=== PATIENT | male | born 1965 | race Caucasian/White ===

== ENCOUNTER 2024-11-26 11:56 | Inpatient (IN) | payer OTHER, SELFPAY ==
[2024-11-26] VITALS (11 sets, daily range): BP systolic 161–190; BP diastolic 99–130; PULSE 81; BMI 42.4; BMI 41.6
[2024-11-26 10:17] LABS: % Basophils 0.5 % (0-2); % Eosinophils 1.4 % (0-6); % Immature Granulocytes 0.3 % (0-0.5); % Monocytes 6.1 % (1.7-9.3); % Neutrophils 83.7 % (42.2-75.2); Absolute Basophils 0.1 10^3/uL (0-0.2); Absolute Eosinophils 0.2 10^3/uL (0-0.7); Absolute Lymphocytes 0.9 10^3/uL (1.2-3.4); Absolute Monocytes 0.7 10^3/uL (0.1-0.6); Absolute Neutrophils 9.3 10^3/uL (1.4-6.5); Hematocrit 46.6 % (39.0-52.0); Hemoglobin 16.1 g/dL (13.0-18.0); Mean Corp Hgb Conc. 34.5 g/dL (33.0-37.0); Mean Corpuscular Hgb 28.8 pg (27.0-31.0); Mean Corpuscular Volume 83.2 fL (80.0-94.0); Mean Platelet Volume 10.3 fL (7.4-10.4); Nucleated Red Blood Cells % 0 % (-); Platelet Count 212 10^3/uL (130-400); Red Cell Dist. Width 13.9 % (11.5-14.5); White Blood Cell Count 11.1 10^3/uL (4.8-10.8)
[2024-11-26 10:46] LABS: ALT (SGPT) 83 U/L (0-50); Albumin 4.1 g/dl (3.5-5.0); Alkaline Phosphatase 92 U/L (38-126); Blood Urea Nitrogen 26 mg/dl (9-20); Calcium 9.7 mg/dl (8.4-10.2); Carbon Dioxide 29 mmol/L (22-30); Chloride 104 mmol/L (98-107); Estimated Creatinine Clearance 73 ml/min; Lipase 54 U/L (23-300); NT-proBNP 2860 pg/ml; Potassium 3.9 mmol/L (3.5-5.1); Sodium 141 mmol/L (135-145); Total Bilirubin 1.7 mg/dl (0.2-1.3); Total Protein 6.7 g/dl (6.3-8.2); eGFR > 60.00
[2024-11-26 11:00] LABS: AST (SGOT) 44 U/L (17-59); Glucose 156 mg/dl (70-99)
--- NOTE | 2024-11-26 11:04 | ED.GENMED ---
History of Present Illness
General
Chief Complaint: Breathing Problem
Source: patient
Exam Limitations: none
Time Seen by Provider: 11/26/24 10:05
Nursing documentation reviewed up to this point in time: agreed with
History of Present Illness
History of Present Illness:
Patient presents to ED secondary to worsening shortness of breath, especially with exertion, over the past 5 days. However, patient states that his symptoms have been ongoing over the past 1 month, with approximately 50 pounds of weight gain, along
with abdominal distention and leg swelling. Denies coughing. Denies fever or chills. Denies chest pain. Denies nausea, vomiting, or diarrhea. Denies recent travel or surgery. Patient is an ex-smoker and has stopped drinking alcohol.
Past History
Past History
ED Past Medical History: HTN; Negative Hypercholesterolemia
ED Past Surgical History: Orthopedic (R knee surg)
Social History
Tobacco: Non-smoker
Alcohol: None
Drug: None
Personal:
Living: with family
Review of Systems
Review of Systems
Allergies reviewed?: Yes
Constitutional: Reports no symptoms; Denies fever
EENT: Reports no symptoms
Respiratory: Reports trouble breathing; Denies cough
Cardiac: Denies chest pain, diaphoresis or palpitations
ABD/GI: Reports other (Abdominal distention); Denies abdominal pain, vomiting or diarrhea
Musculoskeletal: Reports no symptoms
Skin: Reports no symptoms
Neurological: Reports no symptoms
Phy Exam
Physical Exam
Physical Exam:
Physical Exam
General: mild respiratory distress, not acutely ill. afebrile. overweight
Head: nc/at. eomi
Neck: supple. normal range of motion
Heart: s1/s2 regular rate and rhythm, no murmur.
Lungs: mild respiratory distress. diminished breath sounds bilaterally
Abdomen: normal bowel sounds. not tender. moderate distention
Neuro: alert and oriented x 3. no focal neurological deficits
Skin: no rash
Psychiatric: well kept. interactive and cooperative
Extremities: LE b/l pitting edema. no calf tenderness.
Scores
Heart Failure Risk
Heart Failure Risk Score: Yes
History of Stroke or TIA: No
History of intubation for respiratory distress: No
Heart rate on ED arrival >/= 110: No
SaO2 <90% on arrival on room air: Yes
HR >/=110 during 3min walk test (or too ill to perform test): No
ECG has acute ischemic changes: No
Urea >/=12mmol/L (BUN 33.6mg/dL): No
Serum CO2>/=35mmol/L: No
Troponin I or T elevated to GA Level (0.4mg/dL): No
NT-proBNP >/=5,000ng/L (5,000pg/ml): No
HF Risk Score: 1
Admission Status: MEDIUM RISK 5.1% Consider observation or discharge to home with homecare & f/u visit to PCP/[facility], or SNF for treatment
Course
Orders/Labs/Results
Orders:
Orders
11/26/24 09:29
Electrocardiogram (*1) Urgent
Reason for Study: Shortness of Breath
EKG- Treatment ONCE
11/26/24 10:07
CMP [Comprehensive Metabolic Panel] Urgent
Complete Blood Count/With Diff Urgent
Direct Bilirubin Urgent
GGTP Urgent
Glycohemoglobin (HgbA1c) Urgent
Lipase Urgent
Magnesium Urgent
Comment: ADD
Pro-BNP [NT-proBNP] Urgent
Troponin I Urgent
Comment: ADD ON
11/26/24 10:19
CR Chest - 2 Views Urgent
Comment:
Reason For Exam: sob
11/26/24 11:01
Urinalysis Reflex To Culture Urgent
Date Specimen was Collected: 11/26/24
Time Specimen was Collected: 11:00
Urine Microscopic Reflex Cult Urgent
11/26/24 11:04
Add On- LAB Urgent
Tests Added?: magnesium
Furosemide [Lasix] 40 mg IV NOW STA
11/26/24 11:05
Add On- LAB Urgent
Tests Added?: troponin
11/26/24 11:24
Add On- LAB Routine
Tests Added?: direct bilirubin, GGT
11/26/24 11:26
Add On- LAB Routine
Tests Added?: HgbA1c
11/26/24 11:48
Admit/Transfer Patient As Directed
Co-Sign Provider:
Level of Care: Inpatient admission
Assign to:: Telemetry
Physician / Group: Deya
Diagnosis: Acute CHF
Reason for Telemetry: Acute Heart Failure
Date to Stop Telemetry: 11/29/24
Time to Stop Telemetry: 11:00
Reason for Hospitalization: IV Lasix, cardio consult
Expected length of stay greater than two midnights?: Yes
ELOS- Estimated Length of Stay in days: 3
I certify the patient meets the requirements for IP care: Yes
PRN Pain Medication Management As Directed
May give lesser potent ordered pain med per pt: Yes
preference::
Protocol:: Medication orders for pain may be administered in a
manner that supports deferring to patient preference
when the pt is:
- Requesting an ordered lesser potent pain medication.
Least to most potent pain medications are defined
as: acetaminophen < NSAID < tramadol < opioids
(morphine, oxycodone, hydromorphone).
- Requesting a lesser dose of the same medication IF
ORDERED.
- Requesting a less intrusive route of administration
if both routes are prescribed by the provider (PO <
IV).
11/26/24 11:50
Code Status As Directed
Resuscitation Status: Full Code
11/26/24 12:08
CARDIOLOGY CONSULT Routine
Consulting Provider: Mathew Mane
Was physician already notified: Yes
11/29/24 11:00
DC Protocol for Telemetry ONCE
Abnormal Lab Results
11/26/24 11/26/24
10:07 11:01
WBC 11.1 H 10^3/uL
(4.8-10.8)
Absolute Neuts (auto) 9.3 H 10^3/uL
(1.4-6.5)
Absolute Lymphs (auto) 0.9 L 10^3/uL
(1.2-3.4)
Absolute Monos (auto) 0.7 H 10^3/uL
(0.1-0.6)
Neutrophils % 83.7 H %
(42.2-75.2)
Lymphocytes % 8.0 L %
(20.5-51.1)
BUN 26 H mg/dl
(9-20)
Glucose 156 H mg/dl
(70-99)
Total Bilirubin 1.7 H mg/dl
(0.2-1.3)
Direct Bilirubin 0.5 H mg/dl
(0.0-0.4)
ALT 83 H U/L
(0-50)
Troponin I 0.097 H* ng/ml
Urine Ketones 1+ A
(Negative)
Ur Occult Blood Reflex 1+ A
(Negative)
Urine RBC 3-6 A /HPF
(0-2)
Urine Bacteria (Reflex) Few A
(Negative)
Urine Glucose 1+ A
(Negative)
Urine Albumin (Reflex) 4+ A
(Neg - Trace)
11/26/24 10:07
11/26/24 10:07
Vital Signs
Initial and Last Documented VS:
Initial Vital Signs
Temp Pulse Resp BP Pulse Ox
98.0 F 78 18 187/126 93
11/26/24 09:24 11/26/24 09:24 11/26/24 09:24 11/26/24 09:24 11/26/24 09:24
Last Documented Vital Signs
Temp Pulse Resp BP Pulse Ox
98.0 F 78 18 174/124 94
11/26/24 09:24 11/26/24 12:00 11/26/24 12:00 11/26/24 12:00 11/26/24 12:00
MDM/Problems Addressed
MDM/Problems Addressed:
History and exam consistent with hypoxia and respiratory distress, secondary to fluid overload. Patient will be admitted for further evaluation treatment, including IV diuresis. Paracentesis to be considered, secondary to significant abdominal
distention, if symptoms do not improve with IV diuresis.
*EKG
Interpreted by ED Provider?: Yes
EKG Intrepretation Date: 11/26/24
Heart Rate: 86
Rate: normal
Rhythm: sinus
[place]: normal axis
Interval: normal interval
*Critical Care Note
Total Time (30-74mins, 75-104mins- exclusive of procedures): Not Applicable
ED Attending Note
-
Portions of this chart may have been created with voice recognition software.� Occasional wrong word or��sound alike� substitutions may have occurred due to the inherent limitations of voice recognition software.
Discharge Plan
Departure
Patient Disposition: Admit
Date of Disposition: 11/26/24
Time of Disposition: 11:11
Presentation/result/management discussed w/ accepting MD/DO: Hospitalist
Discharge Problem:
Hypoxia, Fluid overload
Interventions
Interventions:
*Risk Screen - Suicide Last Done: 11/26/24 09:24
*General Assessment Last Done: 11/26/24 09:24
*Neglect/Abuse Screening Last Done: 11/26/24 09:24
*ED- Fall Risk Assessment Last Done: 11/26/24 09:59
*ED COVID-19 Vaccine History Last Done: 11/26/24 09:59
ED- Cardiac Assessment Last Done: 11/26/24 10:04
ED- Pulmonary Assessment Last Done: 11/26/24 10:04
[2024-11-26] MEDS: LASIX 40 MG IV ×2 (11:15→17:24)
[2024-11-26 11:17] LABS: Urine Albumin 4+ (Neg - Trace); Urine Bilirubin Negative (Negative); Urine Character Clear (Clear); Urine Color Yellow; Urine Glucose 1+ (Negative); Urine Ketone 1+ (Negative); Urine Leukocyte Negative (Negative); Urine Nitrite Negative (Negative); Urine Occult Blood 1+ (Negative); Urine Urobilinogen Negative (Neg - 1+)
[2024-11-26 11:17] LABS: Magnesium 1.9 mg/dl (1.6-2.3)
[2024-11-26 11:43] LABS: Direct Bilirubin 0.5 mg/dl (0.0-0.4); GGTP 53 U/L (15-73)
[2024-11-26 11:45] LABS: Urine Bacteria Few (Negative)
[2024-11-26 11:53] LABS: Troponin I 0.097 ng/ml
--- NOTE | 2024-11-26 12:06 | HPS.HSE ---
Family Physician
-
Family Physician: Tanisha Elmore
Chief Complaint
-
Shortness of breath on exertion, weight gain
History of Present Illness
59-year-old male here complaining of increasing dyspnea on exertion over the past month, much worse over the past 5 days. Denies chest pain or pressure. Notes increasing abdominal distention and lower extremity swelling.
Has not particularly noted orthopnea. Denies history of heart failure or heart disease.
States he has gained 40 pounds in the past 8 weeks.
Medical History
Past Medical History
Past Medical History: Reports Other
Additional Past Medical History:
Essential hypertension
Prostate cancer history
SD
Hyperlipidemia
Past Surgical History: Reports Other
Additional Past Surgical History:
Radical prostatectomy 2019
Right total knee arthroplasty
Left lower extremity debridement
Social History
Tobacco: Former Smoker
Alcohol: Former
Drug: Former User
Family History
Family History: Not pertinent
Allergies / Home Medications
Allergies reflects when Allergies were last updated in [facility].
Home Medications with original date entered in [facility]
Allergy/Medication List:
Allergies
Allergy/AdvReac Type Severity Reaction Status Date / Time
ampicillin [Ampicillin] Allergy Unknown Verified 11/26/24 09:23
metformin Allergy Unknown Verified 11/26/24 09:24
Home Medications
amlodipine 10 mg tablet 10 mg PO DAILY 10/23/14
atorvastatin 10 mg tablet 40 mg PO DAILY 10/23/14
escitalopram oxalate 10 mg tablet 10 mg PO DAILY 11/26/24
esomeprazole magnesium 40 mg capsule,delayed release 40 mg PO DAILY 11/26/24
losartan 100 mg tablet 100 mg PO DAILY 11/26/24
metoprolol succinate 50 mg tablet,extended release 24 hr 50 mg PO DAILY 11/26/24
Review of Systems
-
History Source: Patient
A 12 point ROS was completed and negative except as noted: Yes
Physical Exam
Vital Signs
Vital Signs
Temp Pulse Resp BP Pulse Ox
98.0 F 78 18 174/124 94
11/26/24 09:24 11/26/24 12:00 11/26/24 12:00 11/26/24 12:00 11/26/24 12:00
Physical Exam
General: Well Developed, Well Nourished, No Apparent Distress and Comfortable
HEENT: NormoCephalic, Anicteric and Moist mucous membranes
Respiratory: Clear
Cardiac: S1/S2 and Regular Rhythm
GI: Soft, Non Tender and Distended
Genito-urinary: Deferred by me
Musculoskeletal: No Clubbing, No Cyanosis, Edema, Left Lower Extremity and Edema, Right Lower Extremity
Skin: Warm and Dry
Neuro: AO x 3
Hematologic/Lymphatic: No Lymphadenopathy
Psych: Calm
Laboratory Results
-
11/26/24 10:07
11/26/24 10:07
Laboratory Results
Total Bilirubin 1.7 mg/dl (0.2-1.3) H 11/26/24 10:07
AST 44 U/L (17-59) 11/26/24 10:07
ALT 83 U/L (0-50) H 11/26/24 10:07
Alkaline Phosphatase 92 U/L (38-126) 11/26/24 10:07
Troponin I Cancelled 11/26/24 11:04
Lipase 54 U/L (23-300) 11/26/24 10:07
Impression/Plan
-
Acute hypoxic respiratory insufficiency -due to acute pulmonary edema due to acute heart failure exacerbation. Oxygenation improved on 3 L nasal cannula.
Acute heart failure exacerbation - admit to telemetry. First episode of heart failure. Chest x-ray consistent with pulmonary edema. Continue IV Lasix. Check echocardiogram. Consult cardiology. Has never had stress test or catheterization in
the past. BNP 2860.
Essential hypertension with hypertensive emergency -presentation with acute pulmonary edema, acute heart failure exacerbation. Blood pressure should improve with diuresis. Resume home medications.
Troponin elevation -suspect acute nonischemic myocardial injury due to heart failure. Trend troponins.
SD -resume CPAP at bedtime. Patient states he has been compliant.
Hyperlipidemia -atorvastatin.
History of prostate cancer
Morbid obesity due to excess calories
Full code
--- NOTE | 2024-11-26 12:15 | EDRN ---
Dr Falk was notified of elevated BP readings and feels this will resolve as his fluid overload improves - no additional orders at this time
--- NOTE | 2024-11-26 13:30 | CM ---
Met with patient in room. He lives alone in 2 level home, no steps to enter and 13 to fullbath and bedroom. He states he is independent, works, goes to gym, drives. He is . He has 4 dgtrs. He does not use any DME. No history of SNF or VNA.
PCP Flex Elmore
Pharmacy: [facility]
Patient does not anticipate any needs at discharge.
PLAN: HOme no needs
--- NOTE | 2024-11-26 13:33 | CON.CAR ---
Addendum entered and electronically signed by Mathew Mane MD 11/26/24 17:59:
59 yo male with HTN, DM admitted with progressed SOB, edema. No chest pain. Exam with RRR, no murmurs, 1+ LE edema.
Echo shows EF 30-35%, LAD wall motion abnormality.
New cardiomyopathy, suspected ICM. With acute systolic HF, new. Plan for L/RHC in AM. Continue IV lasix.
Titrate/add GDMT. Case mgmt consulted for carmelo.
Original Note:
Consultation
Consultation Request
Date/Time Consultation Requested: 11/26/24 1208
Date/Time Consultation Performed: 11/26/24 1330
Requesting Provider: Dr. Falk
Performing Provider: Cayla GRAVES for Dr. Mane
Reason for Consultation: CHF
Medical History
-
Chief Complaint: SOB
History of Present Illness:
59 y/o male with hypertension, hx prostate CA (prostatectomy 2019), SD on CPAP, obesity, DM, dyslipidemia who is here for evaluation of SOB which has worsened over the past 4 days. He thinks he has gained 20 lbs in the past month and reports LE
edema and abdominal bloating. His SOB prevented him from sleeping last night. He denies any CP. CXR, BNP, exam suggestive of CHF and he is being diuresed. I also note that his BP is severely elevated in ER. His EKG shows evidence for LVH. He is on
O2 by MN and has received a dose of IV lasix. He is in no distress at the time of my assessment.
Past Medical History
Past Medical History: Cancer, HTN, Hypercholesterolemia and Other (as above)
Social History
Tobacco: Former Smoker
Alcohol: None
Drug: None
Family History
Family History: Reviewed & Not Pertinent
Allergies / Home Medications
Allergy/AdvReac Type Severity Reaction Status Date / Time
ampicillin [Ampicillin] Allergy Unknown Verified 11/26/24 09:23
metformin Allergy Unknown Verified 11/26/24 09:24
�Medication �Instructions �Recorded �Confirmed �Type
amlodipine 10 mg tablet 10 mg PO DAILY 10/23/14 11/26/24 History
atorvastatin 10 mg tablet 40 mg PO DAILY 10/23/14 11/26/24 History
escitalopram oxalate 10 mg tablet 10 mg PO DAILY 11/26/24 11/26/24 History
esomeprazole magnesium 40 mg 40 mg PO DAILY 11/26/24 11/26/24 History
capsule,delayed release
losartan 100 mg tablet 100 mg PO DAILY 11/26/24 11/26/24 History
metoprolol succinate 50 mg 50 mg PO DAILY 11/26/24 11/26/24 History
tablet,extended release 24 hr
Review of Systems
-
History Source: Patient
All other systems: Negative unless noted
Constitutional: Weight Gain
Respiratory: Trouble Breathing
Musculoskeletal: Edema
Physical Exam
Vital Signs
Temp Pulse Resp BP Pulse Ox
98.0 F 80 18 190/119 94
11/26/24 09:24 11/26/24 13:15 11/26/24 13:15 11/26/24 13:12 11/26/24 12:00
Lab Results
11/26/24 10:07
11/26/24 10:07
Troponin I Cancelled 11/26/24 11:04
Oxn-S-Kxiwlprfdkc Pept 2860 pg/ml 11/26/24 10:07
Physical Exam
General: Well Developed, Well Nourished and No Apparent Distress
HEENT: Normocephalic and Anicteric
Respiratory: Other (diminished to b/l bases, on O2 by NC)
Cardiac: Regular Rhythm
GI: Distended
Musculoskeletal: Edema (BLE edema, mild)
Skin: Warm and Dry
Neuro: AO x 3
Psych: Calm
Impression / Plan
-
Acute HF (type unknown):
-CXR and BNP suggestive CHF, also on exam with abdominal bloating, mild BLE edema. Patient reports weight gain as well. Lungs diminished to b/l bases on exam.
-check echo
-agree with IV lasix, which requires intensive monitoring
-CHF education
-sodium/fluid restriction
HTN:
-severely elevated in ER, improving
-continue amlodipine, losartan, metoprolol
-monitor with diuresis, but likely to need another agent
Abnormal troponin:
-suspect acute, non-ischemic myocardial injury in setting of acute HF and severe HTN
-trend to peak
-denies CP
-EKG abnormal, but no baseline for comparison
-check echo
DM2:
-not on meds
-management per primary
SD:
-continue CPAP
Obesity, severe:
-will benefir from weight loss moving forward
Data Reviewed
-
EKG: Tracing Personally Visualized and interpreted (SR with LVH, lateral T wave inversions- no previous)
Radiology: Report Reviewed by me (CXR: Cardiomegaly. Diffusely increased interstitial markings, highly suggestive of interstitial pulmonary edema pattern.)
Medical Tests (Nuc Med, Echo etc): Other (echo ordered)
Labs: Labs Reviewed by me
[2024-11-26 13:34] LABS: Glycohemoglobin (HgbA1c) 7.5 % (4.0-5.6)
[2024-11-26 15:31] LABS: Troponin I 0.106 ng/ml
[2024-11-26] MEDS: LOVENOX 40 MG SC (17:24)
[2024-11-26] MEDS: ASPIRIN 325 MG PO (17:55)
[2024-11-26] MEDS: APRESOLINE 25 MG PO ×2 (18:05→21:54)
[2024-11-26] MEDS: MELATONIN 5 MG PO (21:54)
[2024-11-26] MEDS: COREG 25 MG PO (21:54)
[2024-11-26] MEDS: TYLENOL 650 MG PO (21:54)
[2024-11-26 22:14] LABS: Troponin I 0.102 ng/ml
[2024-11-26] MEDS: APRESOLINE 5 MG IV (23:40)
[2024-11-27] VITALS (21 sets, daily range): BP systolic 128–173; BP diastolic 81–121; PULSE 67; BMI 41.3
[2024-11-27] MEDS: LOW STRENGTH ASPIRIN 81 MG PO (07:46)
[2024-11-27] MEDS: LIPITOR 40 MG PO (07:46)
[2024-11-27] MEDS: COZAAR 100 MG PO (07:48)
[2024-11-27] MEDS: NORVASC 10 MG PO (07:48)
[2024-11-27] MEDS: COREG 25 MG PO ×2 (07:49→20:23)
[2024-11-27] MEDS: PROTONIX 40 MG PO (07:49)
[2024-11-27] MEDS: LASIX 40 MG IV ×2 (07:49→17:34)
[2024-11-27] MEDS: LEXAPRO 10 MG PO (07:49)
[2024-11-27] MEDS: APRESOLINE 25 MG PO ×3 (07:49→22:42)
--- NOTE | 2024-11-27 08:16 | W.PN.HOSP.TC ---
Addendum entered and electronically signed by Yobany Falk DO 11/27/24 13:06:
Correction: Acute hypoxic respiratory failure.
Original Note:
Today's Communication/Plan
-
N.p.o.
Cardiac catheterization
Continue IV Lasix
Nutrition consult
monitor glucoses
Assessment / Plan
Assessment / Plan
Gen-AAOx3, NAD
HEENT-NC, AT, anicteric, clear oral mm
Neck-supple
CV-reg, no M, +S1/S2
Lungs-clear B/L
Abd-soft, NT, ND
Ext-no edema
Musculoskeletal-no cyanosis, clubbing
Skin-warm and dry
Neuro-grossly non-focal
Psych-calm, cooperative
Acute hypoxic respiratory insufficiency -due to acute pulmonary edema due to acute heart failure exacerbation. Oxygenation slightly worse this morning, needing 5 L. However, clinically he looks better, feels better. Wean down oxygen as able.
Acute heart failure reduced EF exacerbation - admit to telemetry. First episode of heart failure. Chest x-ray consistent with pulmonary edema. Continue IV Lasix. Plan for cardiac catheterization today as per cardiology. Discussed with patient.
Echocardiogram shows LVEF 30 to 35%, LAD territory wall motion abnormality, mild concentric LVH, normal RV size and function. Mild AR.
Essential hypertension with hypertensive emergency -presentation with acute pulmonary edema, acute heart failure exacerbation. Blood pressure now trending down.
Metoprolol changed to carvedilol.
DM2 with hyperglycemia -hemoglobin A1c 7.5%. New diagnosis of diabetes. Farxiga would be ideal medication given presentation with heart failure. Discussed with patient. Case management to barnard out. Nutrition consult for diabetic diet teaching.
Weight loss recommended.
Troponin elevation -suspect acute nonischemic myocardial injury due to heart failure. Troponins trended down.
SD -resume CPAP at bedtime. Patient states he has been compliant.
Hyperlipidemia -atorvastatin.
History of prostate cancer
Morbid obesity due to excess calories
Full code
Anticipated Discharge: > 48 hours
Subjective/Interval History
-
Date of Service: November 27, 2024
Patient seen and examined. Feeling better. No complaints.
Objective Data
-
Labs:
Laboratory Results
11/27/24
07:32
Sodium Pending
Potassium Pending
Chloride Pending
Carbon Dioxide Pending
BUN Pending
Creatinine Pending
Glucose Pending
Calcium Pending
Total Bilirubin Pending
AST Pending
ALT Pending
Alkaline Phosphatase Pending
Vital Signs:
Vital Signs
Temp Pulse Resp BP Pulse Ox
98.3 F 79 18 159/96 98
11/27/24 03:24 11/27/24 03:24 11/27/24 03:24 11/27/24 03:24 11/27/24 03:24
I&O
11/26/24 11/27/24 11/28/24
06:59 06:59 06:59
Intake Total 700 / 700
Output Total 2100 / 2099
Balance -1400 / -1400
Review of Systems
-
History Source: Patient
All other systems: Reviewed and negative
[2024-11-27 08:31] LABS: ALT (SGPT) 72 U/L (0-50); AST (SGOT) 35 U/L (17-59); Albumin 3.6 g/dl (3.5-5.0); Alkaline Phosphatase 72 U/L (38-126); Blood Urea Nitrogen 30 mg/dl (9-20); Calcium 9.4 mg/dl (8.4-10.2); Carbon Dioxide 32 mmol/L (22-30); Chloride 102 mmol/L (98-107); Estimated Creatinine Clearance 63 ml/min; Glucose 133 mg/dl (70-99); HDL Cholesterol 46 mg/dl; LDL Cholesterol, Calculated 76 mg/dl; Potassium 4.2 mmol/L (3.5-5.1); Sodium 140 mmol/L (135-145); Total Bilirubin 1.4 mg/dl (0.2-1.3); Total Cholesterol 144 mg/dl (50-199); Triglyceride 110 mg/dl (10-149); Very Low Density Lipoprotein 22 mg/dl (0-30); eGFR 52.97
[2024-11-27 11:51] LABS: Glucose - Point of Care 132 mg/dl (70-99)
[2024-11-27] MEDS: NOVOLOG FLEXPEN-LOW RESISTANCE SC ×2 (12:15→17:46)
--- NOTE | 2024-11-27 12:50 | PN.CDI ---
CDI
- -
CDI:
Physician Documentation Request
Admit Date: 11/26/24 11:56
Dear Doctor Deya,
Clinical Indicators:
Patient admitted with acute HFrEF; presented with worsening AARON.
4/ PN, 'Acute hypoxic respiratory insufficiency ...Oxygenation slightly worse this morning, needing 5 L. However, clinically he looks better, feels better.'
02 requirements:
11/27/24
07:00 11/27/24
07:15 11/27/24
11:07
Nasal Cannula flow liters per minute 5 4 5
Please clarify which of the following accurately represents the patient's respiratory status:
Acute hypoxic respiratory failure
Acute hypoxic respiratory insufficiency (documentation complete)
Other, please specify
Additional information for Respiratory Failure:
Recognized criteria for Respiratory Failure (Source: [facility] Hospitalist Jun 2013)
ABGs: (1 or more) Symptoms Please indicate type if known
1. p)2 <60 or RA SPO2 <91% on RA 1. Tachypnea, SOB, dyspnea Hypoxic
2. pCO2 50 and pH <7.35 2. Use of accessory muscles Hypercapnic
3. pO2 decrease of pCO2 increase by 3. Pallor or cyanosis Hypoxic and Hypercapnic
10 mmHg from baseline if known 4. Anxiety or restlessness Unable to determine
5. Unable to speak in full sentences
Supplemental O2 of > 40% (5LPM) Intubation is not required
Use of terms such as suspected, likely, concern for, or probable (associated with a specific diagnosis that is being evaluated, monitored, or treated as if it exists) are acceptable and can be coded in the inpatient setting, when documented at the
time of discharge.
Thank you,
Keesah Houston RN BSN
CDI Specialist
available via tiger text
Please use your independent medical judgment in providing your response.
--- NOTE | 2024-11-27 15:57 | CM ---
Pricing on Entresto, Farxiga and Jardiance. I called the patient's [facility] and they gave me the prescription plan Med [facility], ID# [id number], [phone]. [facility] only [facility] discount card.
CM to confirm no prescription plan with the patient
--- NOTE | 2024-11-27 16:45 | ITS.CL.PN ---
Can Filling Machine Operator - Procedure Note
Procedure
Procedure Note:
CARDIAC CATHETERIZATION REPORT
Date of Procedure: 11/27/2024
Referring: Dr. Mathew Mane MD
Indication: Cardiomyopathy, NSTEMI
PROCEDURE(S)
1. right heart catheterization
2. left heart catheterization
3. coronary angiography
ACCESS
1. 6F right radial artery (closure: radial band)
2. 5F right antecubital vein (closure: manual hemostasis)
CATHETERS
1. 5F Sagle-Michelle
2. 6F JR4
3. 6F JL4
MODERATE SEDATION: 30 minutes of moderate sedation was utilized. An independent medical dir was present to assist with and help manage the patient's level of consciousness and physiologic status.
HEMODYNAMIC DATA
LV 153/21 (EDP 30) mmHg
AO 153/103 (mean 124) mmHg
RA 20 mmHg
RV 48/15 (EDP 20) mmHg
PA 49/28 (mean 37) mmHg
PCWP 26 mmHg
SaO2 92.2%
SvO2 73.7%
Hb 15.3 g/dL
CO/CI 6.85/3.08 L/min/m2
SVR 1215 dsc*-5
PVR 1.6 Wood units
CORONARY ANGIOGRAPHY
Dominance: right
LM: Large, normal
LAD: Large vessel giving rise to a large branching D1 before being totally occluded in the mid vessel. The D1 has a focal 60% stenosis in the mid portion of the larger upper branch. The small lower branch of D1 is subtotally occluded with bridging
collaterals. The mid to distal LAD fills via robust right to left collaterals from the RV marginal.
LCx: Large vessel giving rise to a large OM1, small OM2, and small LPL branch. The OM1 has a focal 70% stenosis that is eccentric and best seen in cranial projections. The OM2 is subtotally occluded.
RCA: Large vessel giving rise to a moderate caliber marginal branch, large RPDA, and large RPL system with several small RPL branches. The RV marginal supplies brisk collateral flow to the apical LAD.
RADIATION: dose 859.77 mGy; DAP 69.5533 Gy*cm2; fluoroscopy time 6.2 min
CONCLUSIONS
1. Triple-vessel coronary artery disease as described in a right dominant system
2. Severely elevated biventricular filling pressures, moderate postcapillary pulmonary hypertension, and normal cardiac output
3. No aortic stenosis on hemodynamic pullback
RECOMMENDATIONS
1. Evaluation for coronary artery bypass grafting with VALLEJO to LAD and additional grafts to the RPDA, diagonal, and large obtuse marginal.
2. Management of decompensated heart failure with reduced ejection fraction secondary to ischemic cardiomyopathy with diuresis and introduction of GDMT as tolerated.
Copy to: Tanisha Elmore DO (PCP)
Signed: Zion Damon MD, PhD
--- NOTE | 2024-11-27 16:58 | CONSULT.CT ---
Consultation
-
Date/Time Consultation Requested: 11/27/24 1645
Date/Time Consultation Performed: 11/27/24 1700
Requesting Provider: Diana GRAVES
Performing Provider: Ana GRAVES for Lissett BARKER
Reason for Consultation: CAD/ CABG eval
Patient History
Physicians
Family Physician: Tanisha Elmore
Outpatient Pig Breeder: None
Inpatient Pig Breeder: Dr. Mane
History of Present Illness
59-year-old male with past medical history of hypertension, prostate cancer, obstructive sleep apnea, and hyperlipidemia presented to [facility] on 11/26 with complaints of increasing AARON over the past month which worsened in the past 5 days.
Patient also noted to have lower extremity edema and a weight gain of 40 pounds in the past 8 weeks. While in the ER patient was found to be hypertensive and was started on oxygen via nasal cannula and was diuresed with Lasix. Since admission
patient has been getting diuresed with 40 mg of IV Lasix twice daily. While in the hospital patient received a echocardiogram which showed a LV ejection fraction of 30-35% and mild aortic regurgitation. Today he was taken to the cardiac Senior Project Leader/Team Lead
and multivessel disease was found therefore CT surgery was consulted for surgical evaluation.
Past Medical History
Past Medical History: HTN, Hypercholesterolemia, NIDDM, SD and SOB
Prostate CA
Past Surgical History
Past Surgical History: Other
Radical prostatectomy 2018
Right total knee arthroplasty
Left lower extremity debridement
Dental History
last dental visit 1 year ago
Family History
Family Medical History: CAD (maternal grandfather CABG)
Social History
Alcohol: Former (Quit in 2016)
Drug: None
Tobacco: Former Smoker (w/ occassional cigar)
Personal:
Living: Alone
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
Allergies
Allergy/AdvReac Type Severity Reaction Status Date / Time
ampicillin [Ampicillin] Allergy Unknown Verified 11/26/24 09:23
metformin Allergy Unknown Verified 11/26/24 09:24
Home Medications
�Medication �Instructions �Recorded �Confirmed �Type
amlodipine 10 mg tablet 10 mg PO DAILY Blood Pressure 10/23/14 11/26/24 History
atorvastatin 10 mg tablet 40 mg PO DAILY High Cholesterol 10/23/14 11/26/24 History
escitalopram oxalate 10 mg tablet 10 mg PO DAILY Depression 11/26/24 11/26/24 History
esomeprazole magnesium 40 mg 40 mg PO DAILY Gastrointestinal 11/26/24 11/26/24 History
capsule,delayed release Issue
losartan 100 mg tablet 100 mg PO DAILY Blood Pressure 11/26/24 11/26/24 History
metoprolol succinate 50 mg 50 mg PO DAILY Blood Pressure 11/26/24 11/26/24 History
tablet,extended release 24 hr
Review of Systems
-
History Source: Patient
General: Reports Weight Gain and Fatigue
HEENT: Reports No Symptoms
Respiratory: Reports SOB and AARON
Cardiac: Reports Edema
Abdomen/GI: Reports Other (edema)
: Reports No Symptoms
Musculoskeletal: Reports Edema
Skin: Reports No Symptoms
Neurological: Reports Dizzy
Vascular: Reports No Symptoms
Physical Exam
Vital Signs
Temp 98.2 F 11/27/24 11:07
Temp route: Oral 11/27/24 11:07
Pulse 72 11/27/24 11:07
Rhythm: Normal sinus rhythm 11/27/24 07:15
Resp Rate 19 11/27/24 11:07
Blood pressure 128/81 11/27/24 11:07
Blood pressure extremity used: Left upper arm 11/27/24 11:07
Position: Sitting 11/27/24 11:07
MAP (cuff-Shaun Monitor) 124 11/26/24 13:56
SaO2 94 11/27/24 11:07
Nasal Cannula flow liters per minute 5 11/27/24 11:07
Oxygen Mode of Delivery Room air 11/26/24 10:04
Can the patient verbally communicate their pain? Yes 11/27/24 07:15
Pain scale rating: Asleep 11/26/24 22:54
Actual Weight 115.893 kg 11/27/24 05:43
Body Mass Index (BMI) 41.3 11/27/24 05:43
Labs
11/26/24 10:07
11/27/24 07:32
Hemoglobin A1c 7.5 % (4.0-5.6) H 11/26/24 10:07
Troponin I 0.102 ng/ml H* 11/26/24 21:12
Xnb-K-Rvcrweennxs Pept 2860 pg/ml 11/26/24 10:07
Urinalysis
Urine Color Yellow 11/26/24 11:01
Urine Clarity Clear (Clear) 11/26/24 11:01
Urine pH 6.0 (5.0-9.0) 11/26/24 11:01
Ur Specific [place] 1.020 (<1.030) 11/26/24 11:01
Urine Ketones 1+ (Negative) A 11/26/24 11:01
Ur Occult Blood Reflex 1+ (Negative) A 11/26/24 11:01
Urine Bilirubin Negative (Negative) 11/26/24 11:01
Leukocyte Esterase Rfl Negative (Negative) 11/26/24 11:01
Urine RBC 3-6 /HPF (0-2) A 11/26/24 11:01
Urine WBC (Reflex) 3-5 /HPF (0-5) 11/26/24 11:01
Ur Squamous Epith Cells 3-5 /LPF (Few) 11/26/24 11:01
Urine Bacteria (Reflex) Few (Negative) A 11/26/24 11:01
Urine Glucose 1+ (Negative) A 11/26/24 11:01
Urine Albumin (Reflex) 4+ (Neg - Trace) A 11/26/24 11:01
Exam
General: Well Developed, Well Nourished and Comfortable
HEENT: Normocephalic
Respiratory: Clear
Cardiac: S1/S2
GI: Distended and Other (obese)
Rectal: Deferred by Provider
Skin: Warm and Dry
Neuro: AO x 3
Extremities: Upper Level Edema and Lower Level Edema
Lymph: No Lymphadenopathy
Psych: Calm
Assessment / Plan
-
59-year-old male with past medical history listed above presented to the emergency room with complaints of shortness of breath and a 40 pound weight gain. He was found to have a newly reduced EF and multivessel disease. CT surgery was consulted
for CABG evaluation.
#CAD
-Patient's case will be discussed with attending physician. Further details regarding surgical timing intervention will be determined after attending physicians full evaluation
-Routine preoperative cardiothoracic surgery orders will be initiated.
-STS risk stratification score will be calculated after preoperative testing is complete
-Continue heparin gtt per cardiology
-Continue diuresis as tolerated; patient may need augmentation with inotrope support
[2024-11-27 17:47] LABS: Glucose - Point of Care 95 mg/dl (70-99)
[2024-11-27] MEDS: LOVENOX 40 MG SC (17:47)
--- NOTE | 2024-11-27 18:16 | PTCARENOTE ---
Received patient from the labor economist at 1710 after R & LHC. Radial band in place right wrist with a strong radial pulse and no signs of bleeding or hematoma. SR on the monitor, patient denies any chest pain or sob. On 2l nc with pulse ox of 96%.
Belongings from the 4th floor brought down to his room. Call lewis in reach.
[2024-11-27 22:11] LABS: Glucose - Point of Care 146 mg/dl (70-99)
[2024-11-28] VITALS (10 sets, daily range): BP systolic 123–175; BP diastolic 73–120; BMI 40.9
[2024-11-28 05:20] LABS: Hematocrit 44.3 % (39.0-52.0); Hemoglobin 14.9 g/dL (13.0-18.0); Mean Corp Hgb Conc. 33.6 g/dL (33.0-37.0); Mean Corpuscular Hgb 28.7 pg (27.0-31.0); Mean Corpuscular Volume 85.4 fL (80.0-94.0); Mean Platelet Volume 10.4 fL (7.4-10.4); Platelet Count 239 10^3/uL (130-400); Red Blood Cell Count 5.19 10^6/uL (4.70-6.10); White Blood Cell Count 6.4 10^3/uL (4.8-10.8)
[2024-11-28 05:42] LABS: ALT (SGPT) 64 U/L (0-50); AST (SGOT) 30 U/L (17-59); Albumin 4.2 g/dl (3.5-5.0); Alkaline Phosphatase 81 U/L (38-126); Blood Urea Nitrogen 33 mg/dl (9-20); Calcium 9.6 mg/dl (8.4-10.2); Carbon Dioxide 29 mmol/L (22-30); Chloride 99 mmol/L (98-107); Direct Bilirubin 0.4 mg/dl (0.0-0.4); Estimated Creatinine Clearance 55 ml/min; Glucose 144 mg/dl (70-99); Potassium 3.8 mmol/L (3.5-5.1); Sodium 138 mmol/L (135-145); Total Bilirubin 1.1 mg/dl (0.2-1.3); Total Protein 6.6 g/dl (6.3-8.2); eGFR 45.58
[2024-11-28 05:45] LABS: INR 0.99; PT 13.3 Sec (11.4-14.6)
[2024-11-28 07:10] LABS: Glucose - Point of Care 142 mg/dl (70-99)
--- NOTE | 2024-11-28 08:35 | W.PN.HOSP.TC ---
Today's Communication/Plan
-
Hold Lasix
Bladder scan
Trend creatinine
CT surgery consult
Assessment / Plan
Assessment / Plan
Gen-AAOx3, NAD
HEENT-NC, AT, anicteric, clear oral mm
Neck-supple
CV-reg, no M, +S1/S2
Lungs-clear B/L
Abd-soft, NT, ND
Ext-no edema
Musculoskeletal-no cyanosis, clubbing
Skin-warm and dry
Neuro-grossly non-focal
Psych-calm, cooperative
Acute hypoxic respiratory failure -due to acute pulmonary edema due to acute heart failure exacerbation. Oxygenation improved, 2 L, wean down as able.
Acute heart failure reduced EF exacerbation - First episode of heart failure. Chest x-ray consistent with pulmonary edema.
Echocardiogram shows LVEF 30 to 35%, LAD territory wall motion abnormality, mild concentric LVH, normal RV size and function. Mild AR.
Three-vessel disease on cardiac cath with volume overload, PCWP 26 mmHg, cardiac index 3.0.
CT surgery consulted for consideration of CABG.
KERRIE -creatinine now 1.7. Hold Lasix. Hold ARB. Etiology likely multifactorial including blood pressure fluctuations, diuretic effect, IV contrast. Bladder scan, discussed with nursing. Labs in the morning. Discussed with cardiology.
Essential hypertension with hypertensive emergency -presentation with acute pulmonary edema, acute heart failure exacerbation. Blood pressure now trending down.
Metoprolol changed to carvedilol.
DM2 with hyperglycemia -hemoglobin A1c 7.5%. New diagnosis of diabetes. Farxiga would be ideal medication given presentation with heart failure. Discussed with patient. Case management to barnard out. Nutrition consult for diabetic diet teaching.
Weight loss recommended.
Troponin elevation -suspect acute nonischemic myocardial injury due to heart failure. Troponins trended down.
SD -continue CPAP at bedtime. Patient states he has been compliant.
Hyperlipidemia -atorvastatin.
History of prostate cancer
Morbid obesity due to excess calories
Full code
Anticipated Discharge: > 48 hours
Subjective/Interval History
-
Date of Service: November 28, 2024
Patient seen and examined. No complaints.
Objective Data
-
Labs:
Laboratory Results
11/28/24
04:52
WBC 6.4
Hgb 14.9
Hct 44.3
Plt Count 239
PT 13.3
INR 0.99
APTT 35.0
Sodium 138
Potassium 3.8
Chloride 99
Carbon Dioxide 29
BUN 33 H
Creatinine 1.7 H
Glucose 144 H
Calcium 9.6
Total Bilirubin 1.1
AST 30
ALT 64 H
Alkaline Phosphatase 81
Vital Signs:
Vital Signs
Temp Pulse Resp BP Pulse Ox
98.0 F 64 18 134/88 95
11/28/24 07:04 11/28/24 04:00 11/28/24 07:04 11/27/24 22:42 11/28/24 07:04
I&O
11/27/24 11/28/24 11/29/24
06:59 06:59 06:59
Intake Total 700 / 700 800 / 800
Output Total 2099 / 2099 2625 / 2625
Balance -1400 / -1400 -1825 / -1825
Review of Systems
-
History Source: Patient
All other systems: Reviewed and negative
--- NOTE | 2024-11-28 09:12 | W.PN.CD ---
Today's Communication / Plan
-
- Plan for coronary bypass grafting
Impression / Plan
-
CAD
- ACS with NSTEMI
- s/p LHC 11/27/24: Triple-vessel coronary artery disease as described in a right dominant system
- Severely elevated biventricular filling pressures, moderate postcapillary pulmonary hypertension, and normal cardiac output
- CT surgery is consulted - Plan for CABG
- No aortic stenosis on hemodynamic pullback
Acute HF (type unknown):
-in setting of NSTEMI
-Severely elevated biventricular filling pressures, moderate postcapillary pulmonary hypertension, and normal cardiac output
- CT surgery is consulted - Plan for CABG
-ECHO 11/26/24: LVEF 30% significant LAD territory wall motion abnormality.
-agree with IV lasix, which requires intensive monitoring
-CHF education
-sodium/fluid restriction
HTN:
-severely elevated in ER, improving
-continue amlodipine, carvedilol, hydralazine
- Valsartan and metoprolol discontinued on 11/27/2024 and replaced by Coreg and hydralazine
- Blood pressure is acceptable now with plan for upcoming cardiac surgery.
DM2:
-not on meds
-management per primary
SD:
-continue CPAP
Obesity, severe:
-will benefir from weight loss moving forward
Physical Exam
Vital Signs/Labs
Vital Signs
Temp Pulse Resp BP Pulse Ox
98.0 F 64 18 134/88 95
11/28/24 07:04 11/28/24 04:00 11/28/24 07:04 11/27/24 22:42 11/28/24 07:04
11/27/24 11/28/24 11/29/24
06:59 06:59 06:59
Actual Weight 115.893 kg 115 kg
11/28/24 04:52
11/28/24 04:52
PT 13.3 Sec (11.4-14.6) 11/28/24 04:52
INR 0.99 11/28/24 04:52
APTT 35.0 Sec (23.4-35.0) 11/28/24 04:52
Magnesium 1.9 mg/dl (1.6-2.3) 11/26/24 10:07
Triglycerides 110 mg/dl (10-149) 11/27/24 07:32
LDL Cholesterol, Calc 76 mg/dl 11/27/24 07:32
VLDL Cholesterol, Calc 22 mg/dl (0-30) 11/27/24 07:32
HDL Cholesterol 46 mg/dl 11/27/24 07:32
11/26/24
10:07
Zdx-R-Oxkazajdpwy Pept 2860
LAB Results
11/26/24 11/26/24 11/26/24
10:07 11:04 14:51
Troponin I 0.097 H* Cancelled 0.106 H*
11/26/24
21:12
Troponin I 0.102 H*
Physical Exam
Constitutional: No acute distress and Comfortable
EENT: Anicteric and Moist mucous membranes
Cardiovascular: Rhythm & rate is regular, Pedal edema is absent and JVD pressure is normal
Respiratory: Respiratory effort normal, Lungs clear to auscul., Wheeze Absent and Crackles Absent
GI: Soft, Distention absent and Normal bowel sounds
Neuro/Psych: Alert, Oriented and AO x 3
Data Reviewed
-
Date of Service: November 28, 2024
Medical Decision Making: Reviewed Test Results, Test Interpretation and Review of Case with other Provider
EKG: Tracing Personally Visualized and interpreted
Echo: Report Reviewed by me
Labs: Labs Reviewed by me
Old Records: Reviewed
[2024-11-28] MEDS: NOVOLOG FLEXPEN-LOW RESISTANCE SC ×3 (09:13→17:44)
[2024-11-28] MEDS: APRESOLINE 25 MG PO ×3 (09:15→20:59)
[2024-11-28] MEDS: NORVASC 10 MG PO (09:15)
[2024-11-28] MEDS: LASIX IV (09:16)
[2024-11-28] MEDS: PROTONIX 40 MG PO (09:16)
[2024-11-28] MEDS: LIPITOR 40 MG PO (09:16)
[2024-11-28] MEDS: LEXAPRO 10 MG PO (09:16)
[2024-11-28] MEDS: COREG 25 MG PO ×2 (09:16→20:57)
[2024-11-28] MEDS: LOW STRENGTH ASPIRIN 81 MG PO (09:17)
[2024-11-28] MEDS: MIRALAX 17 GRAMS PO (09:17)
--- NOTE | 2024-11-28 09:24 | W.PN.UPDATE ---
Update Note
Progress Note Update
Brief CTS Note
Discussed the patient with Dr. Galeana.
Rising creatinine with history of heart failure.
Start low-dose dobutamine at 2.5 to assist with end organ perfusion. Do not titrate.
Ongoing diuresis per primary team.
Surgical planning ongoing. Date TBD.
[2024-11-28] MEDS: DOBUTREX 500 MG 250 IV (10:12)
[2024-11-28 12:24] LABS: Glucose - Point of Care 144 mg/dl (70-99)
[2024-11-28 17:38] LABS: Glucose - Point of Care 159 mg/dl (70-99)
[2024-11-28] MEDS: LOVENOX 40 MG SC (18:30)
--- NOTE | 2024-11-28 21:21 | PTCARENOTE ---
Received pt @ change of shift. AAOx3. BP 154/98, other VSS. Using 2L NC off and on for comfort-- pt verbalized some anxiety and the O2 helps him relax. Dobutamine gtt running @ 2.5 mcg/kg/min (8.6 mL/hr) through left hand. Pt denies chest pain.
Right radial and brachial sites intact and ORAL AND MAXILLOFACIAL PATHOLOGIST. No ecchymosis or firmness. Discussed plan of care for evening. Pt verbalized understanding. Call lewis within reach.
[2024-11-28 22:03] LABS: Glucose - Point of Care 123 mg/dl (70-99)
[2024-11-29] VITALS (10 sets, daily range): BP systolic 152–171; BP diastolic 97–113; BMI 41.1
[2024-11-29 05:20] LABS: Blood Urea Nitrogen 32 mg/dl (9-20); Calcium 9.7 mg/dl (8.4-10.2); Carbon Dioxide 32 mmol/L (22-30); Chloride 100 mmol/L (98-107); Estimated Creatinine Clearance 52 ml/min; Glucose 129 mg/dl (70-99); Potassium 3.8 mmol/L (3.5-5.1); Sodium 139 mmol/L (135-145); eGFR 42.56
--- NOTE | 2024-11-29 05:41 | PTCARENOTE ---
Pt had a restful night. Opted for 2L NC instead of CPAP. Discussed with respiratory-- on board. Pt denied any chest pain or SOB overnight.
[2024-11-29 07:53] LABS: Glucose - Point of Care 141 mg/dl (70-99)
[2024-11-29] MEDS: NOVOLOG FLEXPEN-LOW RESISTANCE SC ×3 (07:54→18:30)
[2024-11-29] MEDS: COREG 25 MG PO ×2 (08:45→20:36)
[2024-11-29] MEDS: LIPITOR 40 MG PO (08:45)
[2024-11-29] MEDS: LEXAPRO 10 MG PO (08:45)
[2024-11-29] MEDS: APRESOLINE 25 MG PO ×3 (08:45→21:35)
[2024-11-29] MEDS: NORVASC 10 MG PO (08:45)
[2024-11-29] MEDS: LOW STRENGTH ASPIRIN 81 MG PO (08:45)
[2024-11-29] MEDS: PROTONIX 40 MG PO (08:46)
--- NOTE | 2024-11-29 08:53 | W.PN.HOSP.TC ---
Addendum entered and electronically signed by Yobany Falk DO 11/29/24 14:05:
Renal ultrasound reviewed. No hydronephrosis or nephrolithiasis. Mild chronic bilateral kidney disease. 2.1 cm complex cyst in the lower pole of the right kidney. This will need further imaging as an outpatient to rule out cystic renal cell
carcinoma.
Original Note:
Today's Communication/Plan
-
Renal ultrasound
BMP in the morning
Assessment / Plan
Assessment / Plan
Gen-AAOx3, NAD
HEENT-NC, AT, anicteric, clear oral mm
Neck-supple
CV-reg, no M, +S1/S2
Lungs-clear B/L
Abd-soft, NT, ND
Ext-no edema
Musculoskeletal-no cyanosis, clubbing
Skin-warm and dry
Neuro-grossly non-focal
Psych-calm, cooperative
Acute hypoxic respiratory failure -due to acute pulmonary edema due to acute heart failure exacerbation. Oxygenation improved, 1 L, wean down as able.
Acute heart failure reduced EF exacerbation - First episode of heart failure. Chest x-ray consistent with pulmonary edema.
Echocardiogram shows LVEF 30 to 35%, LAD territory wall motion abnormality, mild concentric LVH, normal RV size and function. Mild AR.
Three-vessel disease on cardiac cath November 27 with volume overload, PCWP 26 mmHg, cardiac index 3.0.
CT surgery consulted for CABG.
KERRIE -creatinine now 1.8. Hold ARB, Lasix. Etiology likely multifactorial including blood pressure fluctuations, diuretic effect, IV contrast. No retention on bladder scan. Renal ultrasound to be done this morning.
BMP in the morning. Consult nephrology if renal function worsens.
Essential hypertension with hypertensive emergency -presentation with acute pulmonary edema, acute heart failure exacerbation. Blood pressure labile, 123/73 last night, 164/108 this morning. Patient states blood pressure is always elevated in the
hospital.
Metoprolol changed to carvedilol.
DM2 with hyperglycemia -hemoglobin A1c 7.5%. New diagnosis of diabetes. Farxiga would be ideal medication given presentation with heart failure. Discussed with patient. Case management to barnard out. Nutrition consult for diabetic diet teaching.
Weight loss recommended.
Troponin elevation -suspect acute nonischemic myocardial injury due to heart failure. Troponins trended down.
SD -continue CPAP at bedtime. Patient states he has been compliant.
Hyperlipidemia -atorvastatin.
History of prostate cancer
Morbid obesity due to excess calories -discussed lifestyle changes and weight loss.
Full code
Anticipated Discharge: > 48 hours
Subjective/Interval History
-
Date of Service: November 29, 2024
Patient seen and examined. Overall feeling better, no complaints.
Objective Data
-
Labs:
Laboratory Results
11/29/24
02:45
Sodium 139
Potassium 3.8
Chloride 100
Carbon Dioxide 32 H
BUN 32 H
Creatinine 1.8 H
Glucose 129 H
Calcium 9.7
Vital Signs:
Vital Signs
Temp Pulse Resp BP Pulse Ox
98.7 F 70 18 164/108 95
11/29/24 07:56 11/29/24 08:00 11/29/24 02:37 11/29/24 07:58 11/29/24 07:54
I&O
11/28/24 11/29/24 11/30/24
06:59 06:59 06:59
Intake Total 800 / 800 550 / 550
Output Total 2625 / 2625 925 / 925
Balance -1825 / -1825 -375 / -375
Review of Systems
-
History Source: Patient
All other systems: Reviewed and negative
[2024-11-29] MEDS: MIRALAX 17 GRAMS PO (10:08)
--- NOTE | 2024-11-29 10:14 | PTCARENOTE ---
Received patient this morning resting in bed, offers no complaints. IV dobutamine infusing at 2.5 mcg/kg/min left hand. BP elevated, given AM meds. Patient seen by Dr. Falk and sent for renal ultrasound as ordered.
[2024-11-29 12:48] LABS: Glucose - Point of Care 144 mg/dl (70-99)
[2024-11-29] MEDS: DOBUTREX 500 MG 250 IV (14:23)
[2024-11-29] MEDS: LOVENOX 40 MG SC (18:30)
--- NOTE | 2024-11-29 18:44 | PTCARENOTE ---
Diastolic BP remains elevated in the low 100's, TT to Dr. Falk, will continue to monitor, no further orders at this time. Dobutamine continues to infuse at 2.5mcg/kg/min as ordered, patient ambulating in the room, states he feels a little better
today. Informed he is for a repeat echo tomorrow.
[2024-11-29 21:49] LABS: Glucose - Point of Care 141 mg/dl (70-99)
[2024-11-30] VITALS (10 sets, daily range): BP systolic 144–194; BP diastolic 86–110; BMI 41.3
[2024-11-30 05:05] LABS: Blood Urea Nitrogen 31 mg/dl (9-20); Calcium 9.7 mg/dl (8.4-10.2); Carbon Dioxide 31 mmol/L (22-30); Chloride 100 mmol/L (98-107); Estimated Creatinine Clearance 55 ml/min; Glucose 127 mg/dl (70-99); Sodium 139 mmol/L (135-145); eGFR 45.58
--- NOTE | 2024-11-30 06:33 | PTCARENOTE ---
Pt NSR on monitor, BPs elevated, Pt denies any pain during this shift. Dobutamine gtt per order. pt independent in the room
[2024-11-30 07:39] LABS: Glucose - Point of Care 123 mg/dl (70-99)
[2024-11-30] MEDS: NOVOLOG FLEXPEN-LOW RESISTANCE SC (08:39)
[2024-11-30] MEDS: LEXAPRO 10 MG PO (08:40)
[2024-11-30] MEDS: COREG 25 MG PO ×2 (08:40→19:22)
[2024-11-30] MEDS: APRESOLINE 25 MG PO (08:40)
[2024-11-30] MEDS: LIPITOR 40 MG PO (08:40)
[2024-11-30] MEDS: NORVASC 10 MG PO (08:40)
[2024-11-30] MEDS: PROTONIX 40 MG PO (08:40)
[2024-11-30] MEDS: MIRALAX 17 GRAMS PO (08:40)
[2024-11-30] MEDS: LOW STRENGTH ASPIRIN 81 MG PO (08:40)
--- NOTE | 2024-11-30 09:19 | W.PN.HOSP.TC ---
Today's Communication/Plan
-
IV Lasix. Adjustments of cardiac and diabetic meds.
Assessment / Plan
Assessment / Plan
Gen-AAOx3, NAD
HEENT-NC, AT, anicteric, clear oral mm
Neck-supple
CV-reg, no M, +S1/S2
Lungs-clear B/L
Abd-soft, NT, ND
Ext-no edema
Musculoskeletal-no cyanosis, clubbing
Skin-warm and dry
Neuro-grossly non-focal
Psych-calm, cooperative
A/P:
CAD-cardiac cath on 11/27 with triple-vessel CAD and plan for CABG. continue aspirin beta-blockers and statins.
Acute systolic congestive heart failure-continue Lasix 40 mg IV twice a day and Coreg. On dobutamine drip per CTS. updated echo today EF 40 to 48%.
Hypertensive emergency -blood pressure not optimal yet despite adjustments. On furosemide IV, carvedilol 25 mg twice a day and amlodipine 10 mg p.o. daily. Start hydralazine 50 mg p.o. 3 times daily. Can add nitrates.
Acute hypoxic respiratory failure -due to acute pulmonary edema due to acute heart failure exacerbation. On room air now.
KERRIE -creatinine now 1.7. Hold ARB, Lasix. Etiology likely multifactorial including blood pressure fluctuations, diuretic effect, IV contrast. No retention on bladder scan. Renal ultrasound done.
BMP in the morning.
DM2 with hyperglycemia -hemoglobin A1c 7.5%. New diagnosis of diabetes. Increase from low to moderate insulin sliding scale. Recommendation for SGLT L2 inhibitor. Might need further adjustments.
SD -continue CPAP at bedtime.
Hyperlipidemia -atorvastatin.
History of prostate cancer
Morbid obesity due to excess calories -discussed lifestyle changes and weight loss.
DVT prophylaxis-Lovenox SQ
Full code
Total time spent on today's encounter was 52 minutes which included time spent in counseling the patient/family regarding diagnosis and treatment plan as listed above, goals of care, and symptom management. Case was discussed with nursing staff,
specialists, and care coordinators/case management. All labs and imaging personally reviewed by me. Remainder the time spent in detailed review of previous records, lab data, imaging, and other medical provider documentation.
Anticipated Discharge: > 48 hours
Subjective/Interval History
-
Date of Service: November 30, 2024
Patient is some chest fluttering earlier. No chest pain or shortness of breath currently. Afebrile
Objective Data
-
Labs:
Laboratory Results
11/30/24
04:02
Sodium 139
Potassium 4.0
Chloride 100
Carbon Dioxide 31 H
BUN 31 H
Creatinine 1.7 H
Glucose 127 H
Calcium 9.7
Vital Signs:
Vital Signs
Temp Pulse Resp BP Pulse Ox
97.9 F 75 20 161/90 93
11/30/24 07:27 11/30/24 08:48 11/30/24 07:27 11/30/24 08:48 11/30/24 07:27
I&O
11/29/24 11/30/24 12/01/24
06:59 06:59 06:59
Intake Total 550 / 550 743 / 743 180 / 180
Output Total 925 / 925 557 / 557 350 / 350
Balance -375 / -375 186 / 186 -170 / -170
[2024-11-30 11:52] LABS: Glucose - Point of Care 170 mg/dl (70-99)
[2024-11-30] MEDS: NOVOLOG FLEXPEN-LOW RESISTANCE 1 UNITS SC (13:26)
--- NOTE | 2024-11-30 14:25 | PTCARENOTE ---
Patient ambulating in room with a steady gait. Patient has no c/o pain, Dobutamine infusing into left arm. Blood pressure are consistently higher in righr arm, physician made aware. Family at bedside.
--- NOTE | 2024-11-30 14:28 | W.PN.CD ---
Today's Communication / Plan
-
holding lasix, trend Cr
continue dobutamine
increase hydralazine
CABG planning
Impression / Plan
-
CAD
- ACS with NSTEMI, threat to life
- s/p LHC 11/27/24: Triple-vessel coronary artery disease as described in a right dominant system
- Severely elevated biventricular filling pressures, moderate postcapillary pulmonary hypertension, and normal cardiac output
- CT surgery is consulted - Plan for CABG later this week
-continue ASA 81mg daily
ICM, EF 40%, with acute HFrEF:
-in setting of NSTEMI
-Severely elevated biventricular filling pressures, moderate postcapillary pulmonary hypertension, and normal cardiac outp
-ECHO 11/26/24: LVEF 40%, global HK, no sig valve disease
-holding lasix for KERRIE
-dobutamine started by CT surgery: continue
-high risk medication, requiring monitoring of tele
-continues on coreg
-other GDMT to start after CABG
HTN:
-severely elevated in ER, improving
-continue amlodipine 10mg daily, carvedilol 25mg bid, hydralazine (increased to 50mg tid)
- Valsartan and metoprolol discontinued on 11/27/2024 and replaced by Coreg and hydralazine
DM2:
-not on meds
-management per primary
SD:
-continue CPAP
Obesity, morbid:
-will benefit from weight loss moving forward
Physical Exam
Vital Signs/Labs
Vital Signs
Temp Pulse Resp BP Pulse Ox
97.9 F 70 20 167/109 94
11/30/24 11:16 11/30/24 11:17 11/30/24 11:16 11/30/24 11:17 11/30/24 11:16
11/29/24 11/30/24 12/01/24
06:59 06:59 06:59
Actual Weight 115.5 kg 116 kg
11/28/24 04:52
11/30/24 04:02
PT 13.3 Sec (11.4-14.6) 11/28/24 04:52
INR 0.99 11/28/24 04:52
APTT 35.0 Sec (23.4-35.0) 11/28/24 04:52
Magnesium 1.9 mg/dl (1.6-2.3) 11/26/24 10:07
Triglycerides 110 mg/dl (10-149) 11/27/24 07:32
LDL Cholesterol, Calc 76 mg/dl 11/27/24 07:32
VLDL Cholesterol, Calc 22 mg/dl (0-30) 11/27/24 07:32
HDL Cholesterol 46 mg/dl 11/27/24 07:32
11/26/24
10:07
Jby-C-Pbsofzqdccy Pept 2860
Physical Exam
Constitutional: No acute distress and Comfortable
EENT: Moist mucous membranes
Cardiovascular: Rhythm & rate is regular, Systolic murmur absent, Pedal edema present and JVD present
Respiratory: Respiratory effort normal and Lungs clear to auscul.
Neuro/Psych: AO x 3
Data Reviewed
-
Date of Service: November 30, 2024
EKG: Other (Tele: SR 70s)
Labs: Labs Reviewed by me
[2024-11-30] MEDS: APRESOLINE 50 MG PO ×2 (16:37→22:08)
[2024-11-30 16:46] LABS: Glucose - Point of Care 138 mg/dl (70-99)
[2024-11-30] MEDS: NOVOLOG FLEXPEN-MODERATE RESISTANCE SC (17:03)
[2024-11-30] MEDS: LOVENOX 40 MG SC (17:16)
[2024-11-30] MEDS: DOBUTREX 500 MG 250 IV (17:58)
[2024-11-30] MEDS: TYLENOL 650 MG PO (17:58)
[2024-11-30 22:18] LABS: Glucose - Point of Care 144 mg/dl (70-99)
[2024-12-01] VITALS (8 sets, daily range): BP systolic 140–183; BP diastolic 86–114; BMI 41.5
--- NOTE | 2024-12-01 01:02 | PTCARENOTE ---
Pt. has no complaints of CP, VSS, NSR on the monitor. Dobutamine infusing as per order. Pt. independent/ambulatory in room. Currently sleeping.
[2024-12-01] MEDS: TYLENOL 650 MG PO ×3 (02:15→22:31)
[2024-12-01 02:33] LABS: Hematocrit 41.2 % (39.0-52.0); Hemoglobin 14.2 g/dL (13.0-18.0); Mean Corp Hgb Conc. 34.5 g/dL (33.0-37.0); Mean Corpuscular Volume 84.1 fL (80.0-94.0); Mean Platelet Volume 10.3 fL (7.4-10.4); Platelet Count 208 10^3/uL (130-400); Red Cell Dist. Width 13.7 % (11.5-14.5); White Blood Cell Count 5.5 10^3/uL (4.8-10.8)
[2024-12-01 02:53] LABS: Blood Urea Nitrogen 32 mg/dl (9-20); Calcium 9.7 mg/dl (8.4-10.2); Carbon Dioxide 30 mmol/L (22-30); Chloride 102 mmol/L (98-107); Estimated Creatinine Clearance 67 ml/min; Glucose 144 mg/dl (70-99); Potassium 4.2 mmol/L (3.5-5.1); Sodium 138 mmol/L (135-145); eGFR 57.54
[2024-12-01 07:39] LABS: Glucose - Point of Care 120 mg/dl (70-99)
--- NOTE | 2024-12-01 08:37 | W.PN.CD ---
Today's Communication / Plan
-
-Holding lasix for KERRIE.
-Will discontinue dobutamine due to uncontrolled hypertension and persistent headache.
-Continue amlodipine 10 mg daily, Coreg 25 mg twice daily, and hydralazine 50 mg TID.
Impression / Plan
-
CAD
- ACS with NSTEMI, threat to life
- s/p C 11/27/24: Triple-vessel coronary artery disease as described in a right dominant system
- Severely elevated biventricular filling pressures, moderate postcapillary pulmonary hypertension, and normal cardiac output
- CT surgery is consulted - Plan for CABG later this week
- Continue ASA 81mg daily.
ICM, EF 40%, with acute HFrEF:
-in setting of NSTEMI
-Severely elevated biventricular filling pressures, moderate postcapillary pulmonary hypertension, and normal cardiac outp
-ECHO 11/26/24: LVEF 40%, global HK, no sig valve disease
-Holding lasix for KERRIE.
-Will discontinue dobutamine due to uncontrolled hypertension and persistent headache.
-Continue amlodipine 10 mg daily, Coreg 25 mg twice daily, and hydralazine 50 mg TID.
-other GDMT to start after CABG
-Continue gambling monitor.
HTN:
- Significantly elevated.
-Discontinuing dobutamine as above, continue other antihypertensive medications.
DM2:
-not on meds
-management per primary
SD:
-continue CPAP
Obesity, morbid:
-will benefit from weight loss moving forward
Physical Exam
Vital Signs/Labs
Vital Signs
Temp Pulse Resp BP Pulse Ox
97.7 F 65 20 169/102 96
12/01/24 07:33 12/01/24 07:34 12/01/24 07:33 12/01/24 07:34 12/01/24 07:33
11/30/24 12/01/24 12/02/24
06:59 06:59 06:59
Actual Weight 116 kg 116.6 kg
12/01/24 02:25
12/01/24 02:25
PT 13.3 Sec (11.4-14.6) 11/28/24 04:52
INR 0.99 11/28/24 04:52
APTT 35.0 Sec (23.4-35.0) 11/28/24 04:52
Magnesium 1.9 mg/dl (1.6-2.3) 11/26/24 10:07
Triglycerides 110 mg/dl (10-149) 11/27/24 07:32
LDL Cholesterol, Calc 76 mg/dl 11/27/24 07:32
VLDL Cholesterol, Calc 22 mg/dl (0-30) 11/27/24 07:32
HDL Cholesterol 46 mg/dl 11/27/24 07:32
11/26/24
10:07
Umj-E-Notjbiagzpj Pept 2860
Physical Exam
Constitutional: No acute distress and Comfortable
EENT: Anicteric
Cardiovascular: Rhythm & rate is regular, Pedal edema present (trace), Systolic murmur present (/) and S1S2 is normal
Respiratory: Respiratory effort normal and Lungs clear to auscul.
GI: Soft
Neuro/Psych: AO x 3
Other: Skin (Warm, dry, intact)
Data Reviewed
-
Date of Service: December 01, 2024
EKG: Tracing Personally Visualized and interpreted (Telemetry: Sinus rhythm)
Echo: Report Reviewed by me (EF 40%)
Medical Tests (PFT, Pathology etc): Discussed with Physician (CT Surgery)
Labs: Labs Reviewed by me
[2024-12-01] MEDS: NOVOLOG FLEXPEN-MODERATE RESISTANCE SC ×2 (08:45→17:26)
[2024-12-01] MEDS: LEXAPRO 10 MG PO (08:45)
[2024-12-01] MEDS: COREG 25 MG PO ×2 (08:45→21:04)
[2024-12-01] MEDS: APRESOLINE 50 MG PO ×3 (08:46→21:04)
[2024-12-01] MEDS: PROTONIX 40 MG PO (08:46)
[2024-12-01] MEDS: NORVASC 10 MG PO (08:46)
[2024-12-01] MEDS: LIPITOR 40 MG PO (08:46)
[2024-12-01] MEDS: LOW STRENGTH ASPIRIN 81 MG PO (08:46)
[2024-12-01] MEDS: MIRALAX PO (08:46)
--- NOTE | 2024-12-01 08:56 | W.PN.HOSP.TC ---
Today's Communication/Plan
-
Anti-ischemic regimen
Assessment / Plan
Assessment / Plan
Gen-AAOx3, NAD
HEENT-NC, AT, anicteric, clear oral mm
Neck-supple
CV-reg, no M, +S1/S2
Lungs-clear B/L
Abd-soft, NT, ND
Ext-no edema
Musculoskeletal-no cyanosis, clubbing
Skin-warm and dry
Neuro-grossly non-focal
Psych-calm, cooperative
A/P:
CAD-cardiac cath on 11/27 with triple-vessel CAD and plan for CABG. continue aspirin beta-blockers and statins.
Acute systolic congestive heart failure- Lasix on hold. Cont Coreg. Discontinue dobutamine drip per cardio. updated echo EF 40 to 48%.
Hypertensive emergency -blood pressure not optimal yet despite adjustments. On furosemide IV, carvedilol 25 mg twice a day and amlodipine 10 mg p.o. daily. Started hydralazine 50 mg p.o. 3 times daily. Can add nitrates.
Acute hypoxic respiratory failure -due to acute pulmonary edema due to acute heart failure exacerbation. On room air now.
KERRIE -creatinine now 1.4. Hold ARB, Lasix. Etiology likely multifactorial including blood pressure fluctuations, diuretic effect, IV contrast. No retention on bladder scan. Renal ultrasound done.
BMP in the morning.
DM2 with hyperglycemia -hemoglobin A1c 7.5%. New diagnosis of diabetes. Increase from low to moderate insulin sliding scale. Recommendation for SGLT L2 inhibitor. Might need further adjustments.
SD -continue CPAP at bedtime.
Hyperlipidemia -atorvastatin.
History of prostate cancer
Morbid obesity due to excess calories -discussed lifestyle changes and weight loss.
DVT prophylaxis-Lovenox SQ
Full code
Total time spent on today's encounter was 52 minutes which included time spent in counseling the patient/family regarding diagnosis and treatment plan as listed above, goals of care, and symptom management. Case was discussed with nursing staff,
specialists, and care coordinators/case management. All labs and imaging personally reviewed by me. Remainder the time spent in detailed review of previous records, lab data, imaging, and other medical provider documentation.
Anticipated Discharge: > 48 hours
Subjective/Interval History
-
Date of Service: December 01, 2024
No cp, less sob. Afebrile
Objective Data
-
Labs:
Laboratory Results
12/01/24
02:25
WBC 5.5
Hgb 14.2
Hct 41.2
Plt Count 208
Sodium 138
Potassium 4.2
Chloride 102
Carbon Dioxide 30
BUN 32 H
Creatinine 1.4 H
Glucose 144 H
Calcium 9.7
Vital Signs:
Vital Signs
Temp Pulse Resp BP Pulse Ox
97.7 F 65 20 169/102 96
12/01/24 07:33 12/01/24 07:34 12/01/24 07:33 12/01/24 07:34 12/01/24 07:33
I&O
11/30/24 12/01/24 12/02/24
06:59 06:59 06:59
Intake Total 743 / 743 660 / 660
Output Total 557 / 557 850 / 850
Balance 186 / 186 -190 / -190
--- NOTE | 2024-12-01 09:16 | PTCARENOTE ---
Patient ambulating in room with a steady gait. Patient still has dull headache. Dobutamine drip d/c per physician order at 0900.
[2024-12-01 12:10] LABS: Glucose - Point of Care 164 mg/dl (70-99)
[2024-12-01] MEDS: NOVOLOG FLEXPEN-MODERATE RESISTANCE 1 UNITS SC (14:14)
[2024-12-01] MEDS: MIRALAX 17 GRAMS PO (14:15)
--- NOTE | 2024-12-01 14:25 | PTCARENOTE ---
Patient ambulated in halls. Patient was able to ambulate 100 feet, but c/o feeling SOB. RA sat 93%
--- NOTE | 2024-12-01 14:53 | W.PN.UPDATE ---
Update Note
Progress Note Update
STS RISK SCORE
Procedure Type:�Isolated CABG
Perioperative Outcome Estimate %
Operative Mortality 1.77%
Morbidity & Mortality 11.1%
Stroke 0.864%
Renal Failure 2.38%
Reoperation 2.77%
Prolonged Ventilation 6.77%
Deep Sternal Wound Infection 0.326%
Long Hospital Stay (>14 days) 5.17%
Short Hospital Stay (<6 days)* 47.9%
Clinical Summary
Planned Surgery: Isolated CABG, Urgent, First cardiovascular surgery
Demographics: 59 year old, White, male, 115kg, 168cm, BMI: 40.8 kg/m�
Lab Values: Creatinine: 1.4 mg/dL, Hematocrit: 46.6%, WBC Count: 11.1 10�/�L, Platelet Count: 140182 cells/�L
Substance Abuse: Former smoker
Risk Factors / Comorbidities: Diabetes Mellitus , Hypertension
Cardiac Status: Acute heart failure, NYHA Class II, Ejection Fraction = 33%
Coronary Artery Disease: Non-ST Elevation PR, PR: 1 to 7 Days
Valve Disease: Mild AR, Trivial/Trace MR
[2024-12-01] MEDS: LOVENOX 40 MG SC (16:49)
[2024-12-01 16:58] LABS: Glucose - Point of Care 119 mg/dl (70-99)
[2024-12-01 22:25] LABS: Glucose - Point of Care 148 mg/dl (70-99)
[2024-12-01] MEDS: COLACE 100 MG PO (22:31)
--- NOTE | 2024-12-01 23:00 | PTCARENOTE ---
Assumed care of pt from prev nsg shift; Pt AAOx3 w/no CP, but does report some SOB w/activity. Pt ambulating frequently in the rm & around both CVICU & IVU halls. Pt's VSS w/HR in the 50's-60's & BP at start of shift 152/86. Pt's scheduled BP meds
administered as ordered. Pt is SB/SR on telemetry monitoring. Pt does report 2-3/10 anterior 'dull' headache.; PRN Tylenol administered as ordered. Pt w/no addtl needs. Plan of care ongoing.
[2024-12-02] VITALS (7 sets, daily range): BP systolic 152–167; BP diastolic 87–106; BMI 41.7
[2024-12-02 07:07] LABS: Blood Urea Nitrogen 29 mg/dl (9-20); Calcium 9.7 mg/dl (8.4-10.2); Carbon Dioxide 30 mmol/L (22-30); Chloride 100 mmol/L (98-107); Estimated Creatinine Clearance 59 ml/min; Glucose 125 mg/dl (70-99); Potassium 4.4 mmol/L (3.5-5.1); Sodium 139 mmol/L (135-145); eGFR 49.02
[2024-12-02 07:28] LABS: Glucose - Point of Care 106 mg/dl (70-99)
[2024-12-02] MEDS: NOVOLOG FLEXPEN-MODERATE RESISTANCE SC ×2 (08:16→18:28)
--- NOTE | 2024-12-02 08:46 | W.PN.HOSP.TC ---
Today's Communication/Plan
-
Adjust antihypertensive medications.
Assessment / Plan
Assessment / Plan
Gen-AAOx3, NAD
HEENT-NC, AT, anicteric, clear oral mm
Neck-supple
CV-reg, no M, +S1/S2
Lungs-clear B/L
Abd-soft, NT, ND
Ext-no edema
Musculoskeletal-no cyanosis, clubbing
Skin-warm and dry
Neuro-grossly non-focal
Psych-calm, cooperative
A/P:
CAD-cardiac cath on 11/27 with triple-vessel CAD and plan for CABG. continue aspirin beta-blockers nitrates and statins.
Acute systolic congestive heart failure- Lasix on hold. Cont Coreg. Discontinued dobutamine drip per cardio on 12/01. updated echo EF 40 to 48%.
Hypertensive emergency -blood pressure not optimal yet despite adjustments. On furosemide IV, carvedilol 25 mg twice a day and amlodipine 10 mg p.o. daily. Continue hydralazine 50 mg p.o. 3 times daily. Added nitrates with Imdur 30 mg p.o. daily
today.
Acute hypoxic respiratory failure -due to acute pulmonary edema due to acute heart failure exacerbation. On room air now.
KERRIE -creatinine now 1.6; Hold ARB, Lasix. Etiology likely multifactorial including blood pressure fluctuations, diuretic effect, IV contrast. No retention on bladder scan. Renal ultrasound done.
BMP in the morning.
DM2 with hyperglycemia -hemoglobin A1c 7.5%. New diagnosis of diabetes. Increased from low to moderate insulin sliding scale and blood sugars improving. Recommendation for SGLT L2 inhibitor. Might need further adjustments.
SD -continue CPAP at bedtime.
Hyperlipidemia -atorvastatin.
History of prostate cancer
Morbid obesity due to excess calories -discussed lifestyle changes and weight loss.
DVT prophylaxis-Lovenox SQ
Full code
Total time spent on today's encounter was 52 minutes which included time spent in counseling the patient/family regarding diagnosis and treatment plan as listed above, goals of care, and symptom management. Case was discussed with nursing staff,
specialists, and care coordinators/case management. All labs and imaging personally reviewed by me. Remainder the time spent in detailed review of previous records, lab data, imaging, and other medical provider documentation.
Anticipated Discharge: > 48 hours
Subjective/Interval History
-
Date of Service: December 02, 2024
Patient walking in the hallway. Less shortness of breath. No chest pain
Objective Data
-
Labs:
Laboratory Results
12/02/24
05:16
Sodium 139
Potassium 4.4
Chloride 100
Carbon Dioxide 30
BUN 29 H
Creatinine 1.6 H
Glucose 125 H
Calcium 9.7
Vital Signs:
Vital Signs
Temp Pulse Resp BP Pulse Ox
98.3 F 73 20 159/95 96
12/02/24 05:07 12/02/24 08:00 12/02/24 05:07 12/02/24 07:25 12/02/24 05:07
I&O
12/01/24 12/02/24 12/03/24
06:59 06:59 06:59
Intake Total 660 / 660 1200 / 1200
Output Total 850 / 850
Balance -190 / -190 1200 / 1200
[2024-12-02] MEDS: COREG 25 MG PO ×2 (08:52→20:01)
[2024-12-02] MEDS: LIPITOR 40 MG PO (08:52)
[2024-12-02] MEDS: LEXAPRO 10 MG PO (08:52)
[2024-12-02] MEDS: NORVASC 10 MG PO (08:52)
[2024-12-02] MEDS: PROTONIX 40 MG PO (08:52)
[2024-12-02] MEDS: LOW STRENGTH ASPIRIN 81 MG PO (08:53)
[2024-12-02] MEDS: APRESOLINE 50 MG PO ×3 (08:53→22:37)
[2024-12-02] MEDS: FLUSH (NSS) 1 FLUSH IV (08:53)
[2024-12-02] MEDS: MIRALAX PO (09:48)
--- NOTE | 2024-12-02 09:50 | PTCARENOTE ---
Received patient this morning oob and ambulating in the halls, feels good. Getting anxious about upcoming surgery this Saturday.
--- NOTE | 2024-12-02 11:36 | W.PN.CD ---
Today's Communication / Plan
-
-Headache improved with discontinuation of dobutamine and decrease in blood pressure.
-Blood pressure remains mildly elevated.
-Will add Imdur 30 mg daily.
Impression / Plan
-
CAD
- ACS with NSTEMI, threat to life
- s/p C 11/27/24: Triple-vessel coronary artery disease as described in a right dominant system
- Severely elevated biventricular filling pressures, moderate postcapillary pulmonary hypertension, and normal cardiac output
- CT surgery is consulted; CABG planned for Saturday.
- Continue ASA, Atorvastatin, and Carvedilol.
ICM, EF 40%, with acute HFrEF:
-in setting of NSTEMI
-Severely elevated biventricular filling pressures, moderate postcapillary pulmonary hypertension, and normal cardiac outp
-ECHO 11/26/24: LVEF 40%, global HK, no sig valve disease
-Holding lasix for KERRIE.
-Headache improved with discontinuation of dobutamine and decrease in blood pressure.
-other GDMT to start after CABG
-Continue radiation monitor.
HTN:
-Blood pressure remains mildly elevated.
-Headache improved with discontinuation of dobutamine and decrease in blood pressure.
-Continue amlodipine 10 mg daily, Coreg 25 mg twice daily, and hydralazine 50 mg TID.
-Will add Imdur 30 mg daily.
DM2:
-management per primary
SD:
-continue CPAP
Obesity, morbid:
-will benefit from weight loss moving forward
Physical Exam
Vital Signs/Labs
Vital Signs
Temp Pulse Resp BP Pulse Ox
98.3 F 73 20 159/95 96
12/02/24 05:07 12/02/24 08:00 12/02/24 05:07 12/02/24 07:25 12/02/24 05:07
12/01/24 12/02/24 12/03/24
06:59 06:59 06:59
Actual Weight 116.6 kg 117.1 kg
12/01/24 02:25
12/02/24 05:16
PT 13.3 Sec (11.4-14.6) 11/28/24 04:52
INR 0.99 11/28/24 04:52
APTT 35.0 Sec (23.4-35.0) 11/28/24 04:52
Magnesium 1.9 mg/dl (1.6-2.3) 11/26/24 10:07
Triglycerides 110 mg/dl (10-149) 11/27/24 07:32
LDL Cholesterol, Calc 76 mg/dl 11/27/24 07:32
VLDL Cholesterol, Calc 22 mg/dl (0-30) 11/27/24 07:32
HDL Cholesterol 46 mg/dl 11/27/24 07:32
11/26/24
10:07
Hnr-J-Qwkymakczlr Pept 2860
Physical Exam
Constitutional: No acute distress and Comfortable
EENT: Anicteric
Cardiovascular: Rhythm & rate is regular, Pedal edema is absent, Systolic murmur absent and S1S2 is normal
Respiratory: Respiratory effort normal and Lungs clear to auscul.
GI: Soft and Non tender
Neuro/Psych: AO x 3
Other: Skin (Warm, dry, intact)
Data Reviewed
-
Date of Service: December 02, 2024
EKG: Tracing Personally Visualized and interpreted (Telemetry: Sinus rhythm)
Medical Tests (PFT, Pathology etc): Discussed with Patient
Labs: Labs Reviewed by me
[2024-12-02 12:23] LABS: Glucose - Point of Care 159 mg/dl (70-99)
[2024-12-02] MEDS: IMDUR (EXTENDED RELEASE) 30 MG PO (12:31)
[2024-12-02] MEDS: NOVOLOG FLEXPEN-MODERATE RESISTANCE 1 UNITS SC (12:34)
--- NOTE | 2024-12-02 14:05 | CM ---
Addendum entered by LEXI Nieves 12/02/24 16:26:
Met w/ patient to complete pre-op teaching.
Reviewed pre and post op routines.
Cardiac Surgery booklet provided.
We reviewed post op MD appointments, Cardiac Rehab and visit from CT Transitional Care RN.
We reviewed post op restrictions to include lifting, driving, flying and sternal precautions.
Plan for CT Surgery 12/04.
DC plan is for home w/ CT Transitional Care RN.
CM to follow.
Original Note:
CM following for DC planning needs.
CM met w/ patient at bedside. Pt. reports that he is feeling well.
Reviewed initial assessment. Pt. resides alone in a private, [facility].
Functionally, patient is indep. w/ ADLs, mobility without the use of any assisted device.
Plan is for CT Surg 12/04. Will meet w/ patient to complete pre-op teaching.
Will follow.
[2024-12-02 18:06] LABS: Glucose - Point of Care 112 mg/dl (70-99)
[2024-12-02] MEDS: LOVENOX 40 MG SC (19:17)
--- NOTE | 2024-12-02 21:11 | PTCARENOTE ---
Pt rec'd at change of shift with no c/o cp but feeling tired. Sinus on telemetry. lungs clear, IS encouraged with pt hitting 2000 consistently.
[2024-12-02 22:43] LABS: Glucose - Point of Care 132 mg/dl (70-99)
[2024-12-03] VITALS (8 sets, daily range): BP systolic 148–180; BP diastolic 89–102; BMI 41.6
[2024-12-03] MEDS: TYLENOL 650 MG PO ×2 (03:33→18:51)
--- NOTE | 2024-12-03 03:58 | PTCARENOTE ---
Pt reports h/a medicated with Tylenol. Also c/o nasal congestion. House [facility] [employer] contacted for Thorofare nasal spray.
[2024-12-03 04:06] LABS: Blood Urea Nitrogen 31 mg/dl (9-20); Calcium 9.9 mg/dl (8.4-10.2); Carbon Dioxide 29 mmol/L (22-30); Chloride 101 mmol/L (98-107); Estimated Creatinine Clearance 63 ml/min; Glucose 129 mg/dl (70-99); Potassium 4.1 mmol/L (3.5-5.1); Sodium 138 mmol/L (135-145); eGFR 52.97
[2024-12-03] MEDS: OCEAN, SALINE MIST 1 SPRAYS NASAL ×3 (04:38→15:03)
[2024-12-03 07:22] LABS: Glucose - Point of Care 117 mg/dl (70-99)
[2024-12-03] MEDS: LIPITOR 40 MG PO (08:02)
[2024-12-03] MEDS: PROTONIX 40 MG PO (08:02)
[2024-12-03] MEDS: NORVASC 10 MG PO (08:02)
[2024-12-03] MEDS: LOW STRENGTH ASPIRIN 81 MG PO (08:03)
[2024-12-03] MEDS: IMDUR (EXTENDED RELEASE) 30 MG PO (08:03)
[2024-12-03] MEDS: LEXAPRO 10 MG PO (08:03)
[2024-12-03] MEDS: NOVOLOG FLEXPEN-MODERATE RESISTANCE SC ×3 (08:03→17:41)
[2024-12-03] MEDS: COREG 25 MG PO ×2 (08:03→21:27)
[2024-12-03] MEDS: APRESOLINE 50 MG PO ×2 (08:03→08:41)
[2024-12-03] MEDS: MIRALAX PO (08:04)
--- NOTE | 2024-12-03 08:21 | W.PN.CD ---
Today's Communication / Plan
-
plan for CABG tomorrow
monitor on tele
increase hydralazine to 100mg tid
Impression / Plan
-
CAD
- ACS with NSTEMI, threat to life
- s/p LHC 11/27/24: Triple-vessel coronary artery disease as described in a right dominant system
- Severely elevated biventricular filling pressures, moderate postcapillary pulmonary hypertension, and normal cardiac output
- CT surgery is consulted; CABG planned for Saturday.
- Continue ASA, Atorvastatin, and Carvedilol.
-monitor on tele
ICM, EF 40%, with acute HFrEF:
-in setting of NSTEMI
-Severely elevated biventricular filling pressures, moderate postcapillary pulmonary hypertension, and normal cardiac outp
-ECHO 11/26/24: LVEF 40%, global HK, no sig valve disease
-Holding lasix for KERRIE.
-cont coreg 25mg bid
-other GDMT to start after CABG
-Continue rn admit.
HTN:
-Blood pressure remains elevated.
-Continue amlodipine 10 mg daily, Coreg 25 mg twice daily, imdur 30mg daily
-increase hydralazine to 100 mg TID
DM2:
-management per primary
SD:
-continue CPAP
Obesity, morbid:
-will benefit from weight loss moving forward
-increases his surgical risk for CABG
Physical Exam
Vital Signs/Labs
Vital Signs
Temp Pulse Resp BP Pulse Ox
98.3 F 70 20 180/99 94
12/03/24 07:11 12/03/24 08:02 12/03/24 07:11 12/03/24 08:02 12/03/24 07:11
12/02/24 12/03/24 12/04/24
06:59 06:59 06:59
Actual Weight 117.1 kg 116.9 kg
04/08/25 02:25
12/03/24 03:43
PT 13.3 Sec (11.4-14.6) 11/28/24 04:52
INR 0.99 11/28/24 04:52
APTT 35.0 Sec (23.4-35.0) 11/28/24 04:52
Magnesium 1.9 mg/dl (1.6-2.3) 11/26/24 10:07
Triglycerides 110 mg/dl (10-149) 11/27/24 07:32
LDL Cholesterol, Calc 76 mg/dl 11/27/24 07:32
VLDL Cholesterol, Calc 22 mg/dl (0-30) 11/27/24 07:32
HDL Cholesterol 46 mg/dl 11/27/24 07:32
11/26/24
10:07
Rhr-J-Rzqgsjemcoe Pept 2860
Physical Exam
Constitutional: No acute distress and Comfortable
EENT: Moist mucous membranes
Cardiovascular: Rhythm & rate is regular, Pedal edema is absent, JVD pressure is normal and Systolic murmur absent
Respiratory: Respiratory effort normal and Lungs clear to auscul.
Neuro/Psych: AO x 3
Data Reviewed
-
Date of Service: December 03, 2024
EKG: Other (Tele: SR 60s)
Labs: Labs Reviewed by me
--- NOTE | 2024-12-03 08:54 | W.PN.HOSP.TC ---
Today's Communication/Plan
-
Adjustment antihypertensives.
Assessment / Plan
Assessment / Plan
Gen-AAOx3, NAD
HEENT-NC, AT, anicteric, clear oral mm
Neck-supple
CV-reg, no M, +S1/S2
Lungs-clear B/L
Abd-soft, NT, ND
Ext-no edema
Musculoskeletal-no cyanosis, clubbing
Skin-warm and dry
Neuro-grossly non-focal
Psych-calm, cooperative
A/P:
CAD-cardiac cath on 11/27 with triple-vessel CAD and plan for CABG. continue aspirin beta-blockers nitrates and statins. Plan for CABG tomorrow
Acute systolic congestive heart failure- Lasix on hold. Cont Coreg. Discontinued dobutamine drip per cardio on 12/01. updated echo EF 40 to 48%.
Hypertensive emergency -blood pressure not optimal yet despite adjustments. On furosemide IV, carvedilol 25 mg twice a day and amlodipine 10 mg p.o. daily. Continue hydralazine but increase to 100 mg p.o. 3 times daily. Continue nitrates with
Imdur 30 mg p.o. daily.
Acute hypoxic respiratory failure -due to acute pulmonary edema due to acute heart failure exacerbation. On room air now.
KERRIE -creatinine now 1.5; Hold ARB, Lasix. Etiology likely multifactorial including blood pressure fluctuations, diuretic effect, IV contrast. No retention on bladder scan. Renal ultrasound done.
BMP in the morning.
DM2 with hyperglycemia -hemoglobin A1c 7.5%. New diagnosis of diabetes. Increased from low to moderate insulin sliding scale and blood sugars improving. Recommendation for SGLT L2 inhibitor. Might need further adjustments.
SD -continue CPAP at bedtime.
Hyperlipidemia -atorvastatin.
History of prostate cancer
Morbid obesity due to excess calories -discussed lifestyle changes and weight loss.
DVT prophylaxis-Lovenox SQ
Full code
Total time spent on today's encounter was 52 minutes which included time spent in counseling the patient/family regarding diagnosis and treatment plan as listed above, goals of care, and symptom management. Case was discussed with nursing staff,
specialists, and care coordinators/case management. All labs and imaging personally reviewed by me. Remainder the time spent in detailed review of previous records, lab data, imaging, and other medical provider documentation.
Anticipated Discharge: > 48 hours
Subjective/Interval History
-
Date of Service: December 03, 2024
Patient denies chest pain or shortness of breath
Objective Data
-
Labs:
Laboratory Results
12/03/24
03:43
Sodium 138
Potassium 4.1
Chloride 101
Carbon Dioxide 29
BUN 31 H
Creatinine 1.5 H
Glucose 129 H
Calcium 9.9
Vital Signs:
Vital Signs
Temp Pulse Resp BP Pulse Ox
98.3 F 68 20 180/99 94
12/03/24 07:11 12/03/24 08:41 12/03/24 07:11 12/03/24 08:41 12/03/24 07:11
I&O
12/02/24 12/03/24 12/04/24
06:59 06:59 06:59
Intake Total 1200 / 1200 360 / 360
Balance 1200 / 1200 360 / 360
--- NOTE | 2024-12-03 12:04 | CM ---
CM following for DC planning needs.
Met w/ patient at bedside. He is anticipating surgery on 12/04. He offers no concerns or needs at this time.
He feels positive about surgery.
DC Plan is for home w/ CT Transitional Care RN once medically stable.
Will cont. to follow.
[2024-12-03 13:53] LABS: Glucose - Point of Care 145 mg/dl (70-99)
[2024-12-03] MEDS: APRESOLINE 100 MG PO ×2 (15:04→22:43)
--- NOTE | 2024-12-03 15:16 | PTCARENOTE ---
Pt c/o nasal 'stuffiness' and a headache. Pt given nasal spray and offerred tylenol. Pt stated relief of 'stuffiness' and headache by the afternoon. Will monitor.
[2024-12-03 17:10] LABS: Glucose - Point of Care 118 mg/dl (70-99)
[2024-12-03 22:31] LABS: Glucose - Point of Care 164 mg/dl (70-99)
--- NOTE | 2024-12-03 23:54 | PTCARENOTE ---
Pt rec'd during evening shift awake,alert ambulating in [place]. Prepped for CVOR. clipped , showered with 4% chlorhexidine soap.
Pt felipe shower well no c/o cp or sob. Resting in bed at present. Pt aware of npo status after mn.
[2024-12-04] VITALS (15 sets, daily range): BP systolic 83–178; BP diastolic 56–102; BMI 41.3
[2024-12-04 05:43] LABS: Hematocrit 39.2 % (39.0-52.0); Hemoglobin 13.5 g/dL (13.0-18.0); Mean Corp Hgb Conc. 34.4 g/dL (33.0-37.0); Mean Corpuscular Hgb 29.1 pg (27.0-31.0); Mean Corpuscular Volume 84.5 fL (80.0-94.0); Mean Platelet Volume 10.5 fL (7.4-10.4); Platelet Count 228 10^3/uL (130-400); Red Blood Cell Count 4.64 10^6/uL (4.70-6.10); Red Cell Dist. Width 13.7 % (11.5-14.5); White Blood Cell Count 6.7 10^3/uL (4.8-10.8)
[2024-12-04] MEDS: BACTROBAN 2% OINTMENT 1 APPLIC NASAL ×2 (05:55→21:04)
[2024-12-04] MEDS: MAGNESIUM OXIDE 500 MG PO (05:55)
[2024-12-04] MEDS: LOPRESSOR 25 MG PO (05:55)
[2024-12-04] MEDS: PROTONIX 40 MG PO (05:55)
--- NOTE | 2024-12-04 06:10 | W.CVOR.SURPR ---
CVOR Surgeon Immed Pre Op
-
I have examined this patient prior to performance of the scheduled procedure.
The patient's condition is unchanged from the time of the dictated/written History and
Physical and the patient is able to undergo the scheduled procedure.
I have had several conversations with Mr. Reid Herman. We have reviewed his coronary pathology, discussed the proposed operative interventions, reviewed the periprocedural risks (including but not limited to, , stroke, MN, arrhythmia, PNA,
KERRIE/F, bleeding, and infection), discussed expected hospital postprocedural course, and reviewed the expected outpatient recovery. All questions have been answered to the best of my abilities. The patient is agreeable to proceed. Informed consent
has been obtained. I agree with my interventional colleague and will plan DARIUSZ to LAD, greater saphenous vein to diagonal, greater saphenous vein to large OM1, and greater saphenous vein to RPDA.
--- NOTE | 2024-12-04 06:12 | PTCARENOTE ---
Pt prepped for cvor this morning with second shower using chlorhexidine then wipes with CHG cloths. Npo except for am meds.
[2024-12-04 06:22] LABS: Blood Urea Nitrogen 28 mg/dl (9-20); Calcium 9.7 mg/dl (8.4-10.2); Chloride 101 mmol/L (98-107); Glucose 121 mg/dl (70-99); Sodium 137 mmol/L (135-145)
[2024-12-04 06:35] LABS: Carbon Dioxide 30 mmol/L (22-30); Estimated Creatinine Clearance 63 ml/min; eGFR 52.97
[2024-12-04 07:41] LABS: Urine Albumin 3+ (Neg - Trace); Urine Bilirubin Negative (Negative); Urine Character Clear (Clear); Urine Color Yellow; Urine Glucose Negative (Negative); Urine Ketone Negative (Negative); Urine Leukocyte Negative (Negative); Urine Nitrite Negative (Negative); Urine Occult Blood Negative (Negative); Urine Urobilinogen Negative (Neg - 1+)
[2024-12-04 07:57] LABS: ACT+ - POC 109 Seconds (82-134)
[2024-12-04 08:00] LABS: Urine Bacteria Few (Negative); Urine Red Blood Cell 0-2 /HPF (0-2); Urine Squamous Cell 0-2 /LPF (Few); Urine White Cell 0-2 /HPF (0-5)
[2024-12-04 10:44] LABS: ACT+ - POC 504 Seconds (82-134)
[2024-12-04 11:02] LABS: B.E. - POC 5.2 mmol/L; Glucose - POC 137 mg/dl (70-99); HCO3 - POC 31 mmol/L (21-28); Hematocrit - POC 42 % PCV (42-52); Hemodilution- POC No; Hemoglobin Calculated - POC 14.3; Lactate - POC 0.62 mmol/L (0.36-0.75); O2 Saturation %Calculated-POC 98.6 % (94-98); PCO2 - POC 47 mmHg (35-48); PO2 - POC 116 mmHg (83-108); Potassium - POC 3.9 mmol/L (3.5-5.1); Sodium - POC 140 mmol/L (136-145); Specimen Type - POC Arterial; pH - POC 7.42 (7.35-7.45)
[2024-12-04 11:12] LABS: ACT+ - POC 560 Seconds (82-134)
[2024-12-04 11:31] LABS: B.E. - POC 5.7 mmol/L; Glucose - POC 142 mg/dl (70-99); HCO3 - POC 32 mmol/L (21-28); Hematocrit - POC 34 % PCV (42-52); Hemodilution- POC Yes; Hemoglobin Calculated - POC 11.4; Ionized Calcium - POC 1.09 mmol/L (1.15-1.33); Lactate - POC 0.63 mmol/L (0.36-0.75); O2 Saturation %Calculated-POC 99.9 % (94-98); PCO2 - POC 51 mmHg (35-48); PO2 - POC 312 mmHg (83-108); Potassium - POC 4.5 mmol/L (3.5-5.1); Sodium - POC 138 mmol/L (136-145); Specimen Type - POC Arterial
[2024-12-04 11:41] LABS: ACT+ - POC 504 Seconds (82-134)
[2024-12-04 11:59] LABS: B.E. - POC 8.2 mmol/L; Glucose - POC 153 mg/dl (70-99); HCO3 - POC 35 mmol/L (21-28); Hematocrit - POC 36 % PCV (42-52); Hemodilution- POC Yes; Hemoglobin Calculated - POC 12.1; Ionized Calcium - POC 1.14 mmol/L (1.15-1.33); Lactate - POC 0.46 mmol/L (0.36-0.75); O2 Saturation %Calculated-POC 99.9 % (94-98); PCO2 - POC 58 mmHg (35-48); PO2 - POC 334 mmHg (83-108); Potassium - POC 4.7 mmol/L (3.5-5.1); Sodium - POC 139 mmol/L (136-145); Specimen Type - POC Arterial; pH - POC 7.39 (7.35-7.45)
[2024-12-04 12:12] LABS: ACT+ - POC 523 Seconds (82-134)
[2024-12-04 12:35] LABS: B.E. - POC 4.2 mmol/L; Glucose - POC 159 mg/dl (70-99); HCO3 - POC 30 mmol/L (21-28); Hematocrit - POC 33 % PCV (42-52); Hemodilution- POC Yes; Hemoglobin Calculated - POC 11.1; Ionized Calcium - POC 1.11 mmol/L (1.15-1.33); Lactate - POC 0.53 mmol/L (0.36-0.75); PCO2 - POC 47 mmHg (35-48); PO2 - POC 361 mmHg (83-108); Potassium - POC 4.8 mmol/L (3.5-5.1); Sodium - POC 137 mmol/L (136-145); Specimen Type - POC Arterial; pH - POC 7.41 (7.35-7.45)
[2024-12-04 12:42] LABS: ACT+ - POC 467 Seconds (82-134)
[2024-12-04 13:22] LABS: B.E. - POC 3.1 mmol/L; Glucose - POC 170 mg/dl (70-99); HCO3 - POC 28 mmol/L (21-28); Hematocrit - POC 34 % PCV (42-52); Hemodilution- POC Yes; Hemoglobin Calculated - POC 11.5; Ionized Calcium - POC 1.09 mmol/L (1.15-1.33); Lactate - POC 1.08 mmol/L (0.36-0.75); O2 Saturation %Calculated-POC 99.9 % (94-98); PCO2 - POC 44 mmHg (35-48); PO2 - POC 302 mmHg (83-108); Potassium - POC 4.9 mmol/L (3.5-5.1); Sodium - POC 137 mmol/L (136-145); Specimen Type - POC Arterial; pH - POC 7.41 (7.35-7.45)
[2024-12-04 13:27] LABS: ACT+ - POC 104 Seconds (82-134)
--- NOTE | 2024-12-04 13:51 | CON.INTV ---
Consultation
Consultation Request
Date/Time Consultation Requested: 12/04/24
Date/Time Consultation Performed: 12/04/24
Performing Provider: Argelia
Reason for Consultation: CVICU
Medical History
-
History of Present Illness:
Patient is a 59-year-old male with previous history of hypertension, SD presenting to ER on 11/26/2024 with increasing shortness of breath with exertion, 40 pound weight gain in the past 8 weeks with increasing abdominal distention and lower
extremity swelling. Echo was completed demonstrating cardiomyopathy with a EF of 30-35%. Left heart catheterization completed 11/27/2024 demonstrating triple-vessel disease with possible ICM. He was evaluated by CT surgery and underwent CABG x 4
12/04/24 and tolerated the procedure well. He is postoperatively transferred to CVICU on mechanical ventilation for further management.
Past Medical History
Past Medical History: Other (see list below)
Social History
Tobacco: Former Smoker
Alcohol: None
Drug: None
Family History
Family History: Unable to Obtain
Allergies / Home Medications
Allergies
Allergy/AdvReac Type Severity Reaction Status Date / Time
ampicillin [Ampicillin] Allergy Unknown Verified 11/26/24 09:23
metformin Allergy Unknown Verified 11/26/24 09:24
Home Medications
�Medication �Instructions �Recorded �Confirmed �Last Taken �Type
amlodipine 10 mg tablet 10 mg PO DAILY Blood Pressure 10/23/14 11/26/24 11/26/24 History
atorvastatin 10 mg tablet 40 mg PO DAILY High Cholesterol 10/23/14 11/26/24 11/26/24 History
escitalopram oxalate 10 mg tablet 10 mg PO DAILY Depression 11/26/24 11/26/24 11/26/24 History
esomeprazole magnesium 40 mg 40 mg PO DAILY Gastrointestinal 11/26/24 11/26/24 11/26/24 History
capsule,delayed release Issue
losartan 100 mg tablet 100 mg PO DAILY Blood Pressure 11/26/24 11/26/24 11/26/24 History
metoprolol succinate 50 mg 50 mg PO DAILY Blood Pressure 11/26/24 11/26/24 11/26/24 History
tablet,extended release 24 hr
Review of Systems
-
Unable to Obtain full review of systems at this time due to: Patient Intubation
Vitals / Labs / Diagnostic Testing
Vital Signs
Temp Pulse Resp BP Pulse Ox
98.6 F 72 20 148/90 96
12/04/24 05:19 12/04/24 05:24 12/04/24 05:19 12/04/24 05:24 12/04/24 05:19
Diagnostic Testing:
Physical Exam
-
HEENT: Normocephalic, Anicteric and Moist Mucous Membranes
Cardiovascular: S1/S2 and Regular Rhythm
Respiratory: Clear, Non-Labored Respirations and Other (ETT/chest tubes)
GI: Soft, Non Distended and Non Tender
Neurology: Other (sedated/intubated)
Skin: Warm, Dry and Good Color
General: Comfortable and Other (NAD)
Assessment
-
Patient is a 59-year-old male with previous history of hypertension, SD presenting to ER on 11/26/2024 with increasing shortness of breath with exertion, 40 pound weight gain in the past 8 weeks with increasing abdominal distention and lower
extremity swelling. Echo was completed demonstrating cardiomyopathy with a EF of 30-35%. Left heart catheterization completed 11/27/2024 demonstrating triple-vessel disease with possible ICM. He was evaluated by CT surgery and underwent CABG x 4
12/04/24 and tolerated the procedure well. He is postoperatively transferred to CVICU on mechanical ventilation for further management.
MVCAD s/p CABx 4 12/04/24
Perioperative mechanical ventilation
Acute congestive heart failure
New ischemic cardiomyopathy, EF 30-35%
Shortness of breath with exertion
Postop anemia
EKRRIE, BL 0.9; now 1.7-1.8
Hyperglycemia
Conditions present prior to admission
Essential hypertension
Prostate cancer history
SD
Hyperlipidemia
Radical prostatectomy 2019
Right total knee arthroplasty
Left lower extremity debridement
Plan
S/p cabx 4 POD #0
Titrate off pressors per protocol
ECHO reviewed with low function--new ICM EF 30-35%
Management of chest tubes per primary service
Intubated/sedated, initiate SAT when able
Pain control
RASS goal of 0 to -1
Intubated for procedure, SBT trial when patient able to spontaneously breath
Current vent settings: SIMV 500/16/80/10+ weaning down
ABG(s) reviewed/adequate
CXR with low lung volumes, ETT in good position, lines/tubes in place, CHF noted
Extubate per protocol
Maintain supplement oxygen as needed
Prior history of pulmonary disease: SD on CPAP, would resume
No prior PFTs for review
Can add nebulizers if needed
Aspiration precautions
Encouraged incentive spirometry, OOB/ambulation/early mobility
Advance diet as tolerated following extubation
GI prophylaxis if indicated for mechanical ventilation >48 hours
Monitor critical I/O's
Patel/chest tube output
Hb/platelets postoperatively stable
Trend CBC for now
Can transfuse if indicated for Hb <7, plt <50 in surgical patients
DVT prophylaxis including SCDs
Insulin protocol initiated and ongoing
Transition to SQ/off as indicated per team
We will follow
Diagnostic Data
Chest X-Ray: 11/26/24- Cardiomegaly. Diffusely increased interstitial markings, highly suggestive of interstitial pulmonary edema pattern.
CT Scan: CHEST 11/28/24- 1. Mild calcific atherosclerotic plaque in the coronary arteries.
2. Mild fusiform aneurysmal dilatation of the ascending thoracic aorta (4.1 cm short axis diameter).
3. Moderate cardiomegaly.
4. Moderate airspace consolidation in the posterior and lateral basilar segments of the right lower lobe, small to moderate airspace consolidation in the posterior segment of the right upper lobe, and small airspace consolidation in the left lower
lobe. Diagnostic possibilities are (1) multifocal pneumonia (if there are signs/symptoms of pulmonary infection) or (2) multifocal atelectasis.
5. Mild interstitial cardiogenic pulmonary edema.
6. Mild mediastinal and bilateral hilar lymphadenopathy.
7. Severe multilevel thoracic discogenic degenerative disease.
Echo: ANGELA 12/04/24- Concentric hypertrophy of the left ventricle with normal EF (55-60%) and no regional wall motion abnormalities. Normal right ventricular function. Trace mitral regurgitation. Trace tricuspid regurgitation.
Trace aortic insufficiency. Normal left atrial appendage. Mildly ectatic ascending aorta.
TTE 11/30/24- Mild left ventricular dilation with severe, concentric hypertrophy, mild global hypokinesis and mildly-moderately reduced left ventricular systolic function. Left ventricular ejection fraction is 48% by volumetric assessment. Left
ventricular ejection fraction is 40% visually. Normal right ventricular size and function. Normal atria. No obvious valve abnormalities on this limited study. The IVC is dilated and does not collapse. Right atrial pressure estimated at 15 mmHg.
Compared to prior study of 11/26/2024, left ventricular function is slightly improved. The IVC remains dilated without collapse.
[facility] 11/27/24- PA 49/28 (mean 37) mmHg / PCWP 26 mmHg / CO/CI 6.85/3.08 L/min/m2 / SVR 1215 dsc*-5 / PVR 1.6 Wood units
CONCLUSIONS
1. Triple-vessel coronary artery disease as described in a right dominant system
2. Severely elevated biventricular filling pressures, moderate postcapillary pulmonary hypertension, and normal cardiac output
3. No aortic stenosis on hemodynamic pullback
PFT's:
Reports and relevant images were personally reviewed.
Critical Care time 50 mins -- The patient is admitted for acute critical illness for the treatment of vital organ failure and/or prevention of further life-threatening conditions. Total care includes time spent in review of history, physical exam,
medications, hemodynamic/ventilator parameters, laboratory data, imaging and discussion with house staff, pharmacy, respiratory therapy, corrugated sheet material sheeter, and nursing.
[2024-12-04 14:03] LABS: Glucose - POC 157 mg/dl (70-99); HCO3 - POC 26 mmol/L (21-28); Hematocrit - POC 32 % PCV (42-52); Hemodilution- POC Yes; Ionized Calcium - POC 1.21 mmol/L (1.15-1.33); O2 Saturation %Calculated-POC 90.8 % (94-98); PCO2 - POC 39 mmHg (35-48); PO2 - POC 58 mmHg (83-108); Potassium - POC 4.3 mmol/L (3.5-5.1); Sodium - POC 139 mmol/L (136-145); Specimen Type - POC Arterial; pH - POC 7.44 (7.35-7.45)
--- NOTE | 2024-12-04 14:05 | W.IMMPOSTOP ---
Addendum entered and electronically signed by Talon Cervantes MD 12/04/24 15:27:
[id number]
Original Note:
Surgical Immed Post Op Note
-
CARDIAC SURGERY OPERATIVE NOTE:
Preoperative Dx:
Newly diagnosed, likely ischemic cardiomyopathy w/ LVEF 30-35% on presentation w/ acute, systolic heart failure
MVCAD including BRIDGE MAINTAINER of LAD
NIDDM
HTN/HLD
Prostate CA
MO (BMI 41.3) - SD
Postoperative Dx:
Same
Procedures:
1) Median sternotomy
2) Takedown of DARIUSZ (narrow pedicle)
3) Endoscopic harvest/prep of RLE GSV
4) Endoscopic/partial open harvest/prep of LLE GSV
5) CABG x 4 (DARIUSZ to LAD, GSV to D1, GSV to OM1, GSV to RPDA)
6) ELAA (50mm AtriClip)
Surgeon:
Talon Cervantes M.D.
Assistants:
Marta Randall P.A.-C. - endoscopic harvest/prep of RLE GSV; first coat sander throughout
José Miguel Olivares P.A.-C. - assisted w/ endoscopic harvest/prep of RLE GSV; endo/open harvest of LLE GSV; closure of B/L LE incisions; [id number]-[id number] sternotomy closure
Perfusion:
Rubi Jonas C.C.P.; XC: 87min, CPB: 129min
Anesthesia:
Marty Paez M.D.
Findings:
Non-compliant chest wall despite paralytics
Significant cardiomegaly
DARIUSZ was a very healthy appearing conduit w/ serpentine course, ELD 3.0mm - very brisk blood flow
GSVs were healthy appearing conduits w/ ELD 3.5-4.5mm
LAD was visible on the epicardial surface, scattered calcifications, ELD at midpoint anastomosis 2.75mm
D1 was visible on the epicardial surface, scattered calcifications, ELD 2.75mm
OM1 was visible on the epicardial surface, dense scattered calcifications, ELD 2.75mm
RPDA was visible on the epicardial surface, scattered calcifications, ELD 2.50mm
Good flow in all grafts
JOSE A with windsock morphology
Pre-ANGELA: LVEF 55-60%, type II diastolic dysfunction, lgqrx-ca-[id number] MR, pjmay-fg-qmqx TR, slightly ectatic aortic (3.9cm)
Post-ANGELA: LVEF 55-60%, no RWMA, mild TR, JOSE A successfully excluded
Implants:
AtriClip 50mm
CT x 4 (B/L pleural, inferior mediastinal, superior mediastinal)
Sternal wires x 7
Sternal 'X' plate w/ 8 - 14mm screws
Sternal 'Square' plate w/ 4 - 12mm screws
Transfusions:
None
Condition:
66 sinus (-0.2/-0.2), 111/63, CVP 22
GTTS: levophed 2, precedex 0.5, insulin 1
Stable/guarded to CVICU
[2024-12-04 14:15] LABS: B.E. - POC 2.8 mmol/L; Glucose - POC 142 mg/dl (70-99); HCO3 - POC 26 mmol/L (21-28); Hematocrit - POC 32 % PCV (42-52); Hemodilution- POC Yes; Hemoglobin Calculated - POC 10.7; Ionized Calcium - POC 1.13 mmol/L (1.15-1.33); Lactate - POC 1.43 mmol/L (0.36-0.75); O2 Saturation %Calculated-POC 97.2 % (94-98); PCO2 - POC 36 mmHg (35-48); PO2 - POC 85 mmHg (83-108); POC Comment POST; Potassium - POC 4.1 mmol/L (3.5-5.1); Sodium - POC 138 mmol/L (136-145); Specimen Type - POC Arterial; pH - POC 7.48 (7.35-7.45)
[2024-12-04 14:40] LABS: Glucose - Point of Care 141 mg/dl (70-99)
--- NOTE | 2024-12-04 14:41 | W.PN.UPDATE ---
Update Note
Progress Note Update
IV fluids:
U.O.:�
UF:�
Blood:� none
Wires:� none
Drips: Precedex @ 0.5
�
NEURO: sedated, pupils +2mm B/L
RESP: #8OT @23cm> 500/100%/16/8. Lungs clear B/L. 2 mediastinal (0cc on arrival) and R/L pleural (10cc on arrival) chest tubes to -20cm suction. Sanguineous drainage, no air leak, no crepitus
CV: RRR +S1, S2, no S3, no�rub, no murmur. Dermabond to median sternotomy. RIJ w/Slik
ABD: round, soft, no BS
EXT: no edema, +2/4 DP pulses B/L, no femoral bruit, B/L LE ASHANTI wrap intact; radial radial A-line intact
: Patel with clear yellow urine
�
A/P: POD #0 s/p CABG x 4 (DRAIUSZ to LAD, GSV to D1, GSV to OM1, GSV to RPDA), ELAA (50mm AtriClip)
ANGELA: EF�55-60%
- wean and extubate
- limit narcotics as recovering alcoholic (quit 2016)
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
- will require AA, Plavix, statin, beta-jonathan
# HFimpEF
- pre-op TTE EF 30-35%>improved to 55-60% post CABG
- t/c SGLT2i
�
# acute surgical blood loss anemia-expected
- trend CBC
# HTN
- resume Amlodipine/Losartan as BP permits
�
# T2DM (A1C 7.5)
- insulin infusion x 48h
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
- consult to diabetes KNITTING MACHINE FIXER HEAD
# Class II Obesity (BMI 41.3)
- calorie controlled diet
- lifestyle modification to increase calorie expenditure
�
# Hyperlipidemia
- resume�high dose statin
# Anxiety/Depression
- resume Escitalopram when taking orals
- watch QTc while on prophylactic Amiodarone
[2024-12-04 14:50] LABS: B.E. 3.2 mmol/L; HCO3 27.9 mmol/L (21-28); Ionized Calcium 1.21 mMOL/L (1.15-1.33); O2 Saturation % 96.7 % (94-98); PCO2 42 mmHg (35-48); PO2 75 mmHg (83-108); Potassium 4.3 mMOL/L (3.5-5.1); Sodium 133 mMOL/L (136-145); pH 7.43 (7.35-7.45)
[2024-12-04 14:52] LABS: Hematocrit 32.8 % (39.0-52.0); Hemoglobin 11.5 g/dL (13.0-18.0); Platelet Count 180 10^3/uL (130-400)
[2024-12-04 14:58] LABS: INR 1.31; PT 16.6 Sec (11.4-14.6)
[2024-12-04 14:59] LABS: APTT 30.1 Sec (23.4-35.0)
--- NOTE | 2024-12-04 15:06 | PTCARENOTE ---
received pt from the CVOR into 2260, Pupils ++2, equally reactive to light. RASS -4, sinus rhythm on tele w HR 60-70, + peripheral pulses, +1 edema to bilateral lower extremities. Lungs diminished, #8 ETT, 24cm right lip, pox 93% on SIMV
100%/500/16/+8 PEEP, CT x4 w red drainage, yanes draining sal[place]. surgical sites stable. All lines leveled and zeroed. CPOT 0.
DRIPS:
Precedex 0.5 mcg/kg/hr
Glycemic titrated per glycemic protocol
[2024-12-04 15:11] LABS: Blood Urea Nitrogen 33 mg/dl (9-20); Estimated Creatinine Clearance 55 ml/min; Glucose 141 mg/dl (70-99)
[2024-12-04] MEDS: VENTOLIN NEBULES 2.5 MG INH (15:31)
[2024-12-04] MEDS: NEURONTIN PO ×3 (15:34→22:20)
[2024-12-04] MEDS: LIPITOR PO (15:34)
[2024-12-04] MEDS: LEXAPRO PO (15:34)
[2024-12-04] MEDS: ANCEF 10 IV ×2 (15:34)
[2024-12-04] MEDS: NSS 500 IV (15:35)
[2024-12-04] MEDS: PACERONE PO ×2 (15:35→22:20)
[2024-12-04] MEDS: TYLENOL PO ×2 (15:35→22:20)
[2024-12-04] MEDS: NOVOLOG FLEXPEN-MODERATE RESISTANCE SC ×2 (15:36→15:37)
[2024-12-04] MEDS: APRESOLINE PO (15:37)
[2024-12-04] MEDS: COREG PO (15:37)
[2024-12-04] MEDS: MIRALAX PO (15:37)
[2024-12-04] MEDS: LOW STRENGTH ASPIRIN PO (15:37)
[2024-12-04] MEDS: IMDUR (EXTENDED RELEASE) PO (15:37)
[2024-12-04] MEDS: NORVASC PO (15:38)
[2024-12-04] MEDS: PROTONIX PO (15:38)
--- NOTE | 2024-12-04 15:39 | PTCARENOTE ---
ABG reviewed w CT LUANN, vent changes made by RT.
[2024-12-04 15:58] LABS: Glucose - Point of Care 141 mg/dl (70-99)
[2024-12-04 17:00] LABS: Glucose - Point of Care 114 mg/dl (70-99)
--- NOTE | 2024-12-04 17:10 | PTCARENOTE ---
pt briefly woke, followed simple commands, able to SILVA appropriately.
--- NOTE | 2024-12-04 18:01 | W.PN.CD ---
Today's Communication / Plan
-
pod day 0
sbt when awake and alert, hopeful extubation
Impression / Plan
-
CAD s/p CABG 12/04/24
-CABG x 4 (DARIUSZ to LAD, GSV to D1, GSV to OM1, GSV to RPDA)
-ELAA (50mm AtriClip)
-Intubated and sedated
-off drips
-Continue ASA, Atorvastatin, and Eventual Carvedilol.
ICM, EF 40%, with acute HFrEF:
-in setting of NSTEMI
-Severely elevated biventricular filling pressures, moderate postcapillary pulmonary hypertension, and normal cardiac outp
-ECHO 11/26/24: LVEF 40%, global HK, no sig valve disease
-GDMT to start after CABG
-Continue quality assurance monitor body.
NSVT: no hd significant, bb eventually, lytes fine
-monitor on tele
KERRIE: slightly up, still making urine, monitor
HTN:
-monitor post op
DM2:
-management per primary
SD:
-continue CPAP
Obesity, morbid:
-will benefit from weight loss moving forward
Subjective: thumbs up to how are you feeling, he is intubated
Physical Exam
Vital Signs/Labs
Vital Signs
Temp Pulse Resp BP Pulse Ox
97.5 F 66 16 99/62 92
12/04/24 17:00 12/04/24 17:00 12/04/24 17:00 12/04/24 17:00 12/04/24 17:00
12/03/24 12/04/24 12/05/24
06:59 06:59 06:59
Actual Weight 257 lb 11.526 oz 255 lb 15.307 oz
12/04/24 14:39
PT 16.6 Sec (11.4-14.6) H 04/11/25 14:39
INR 1.31 12/04/24 14:39
APTT 30.1 Sec (23.4-35.0) 12/04/24 14:39
Magnesium 3.0 mg/dl (1.6-2.3) H 12/04/24 14:39
Triglycerides 110 mg/dl (10-149) 11/27/24 07:32
LDL Cholesterol, Calc 76 mg/dl 11/27/24 07:32
VLDL Cholesterol, Calc 22 mg/dl (0-30) 11/27/24 07:32
HDL Cholesterol 46 mg/dl 11/27/24 07:32
11/26/24
10:07
Boo-E-Hozwxsvoaoi Pept 2860
Physical Exam
Constitutional: No acute distress (awake but sedate, holding thumbs up)
Cardiovascular: Rhythm & rate is regular, Systolic murmur absent, Diastolic murmur absent and Pedal edema present (b/l noemi wraps)
Respiratory: Respiratory effort normal, Lungs clear to auscul., Wheeze Absent and Crackles Absent
Neuro/Psych: AO x 3
Data Reviewed
-
Date of Service: December 04, 2024
EKG: Other (sinus, brief nsvt)
[2024-12-04 18:18] LABS: Glucose - Point of Care 108 mg/dl (70-99)
[2024-12-04 18:29] LABS: B.E. 3.8 mmol/L; HCO3 29.2 mmol/L (21-28); Ionized Calcium 1.22 mMOL/L (1.15-1.33); O2 Saturation % 98.8 % (94-98); PCO2 46 mmHg (35-48); PO2 102 mmHg (83-108); Potassium 4.2 mMOL/L (3.5-5.1); Sodium 132 mMOL/L (136-145); pH 7.41 (7.35-7.45)
[2024-12-04 18:30] LABS: O2 Therapy SIMV 80%
[2024-12-04 19:06] LABS: Hematocrit 34.5 % (39.0-52.0); Platelet Count 224 10^3/uL (130-400)
--- NOTE | 2024-12-04 19:45 | PTCARENOTE ---
assumed care of pt from previous RN. pt intubated, drowsy, awakens to verbal stimuli. MAEE. ETT size 8.0, @ 24cm at the lip. vent settings SIMV 500/16/8/5/60%. POX 91-94%. R IJ cordis w/ SLIC. R radial a-line. all lines leveled, zeroed, flushed. SR
on tele-monitor. CT x4 (mediastinal x2, R & L pleural) to -20cm wall suction, draining sanguineous drainage. abd s/n, round, obese. hypoactive BS. yanes catheter draining clear, salina colored urine. all surgical sites stable, CDI. PIV intact. see
worklist for complete nursing assessment, interventions, gtt titrations, VS, and I&Os.
[2024-12-04 20:08] LABS: Glucose - Point of Care 94 mg/dl (70-99)
[2024-12-04] MEDS: SENOKOT-S PO (21:03)
[2024-12-04] MEDS: ASPIRIN 300 MG RECTAL (21:09)
[2024-12-04] MEDS: DILAUDID 0.5 MG IV (21:43)
[2024-12-04 21:51] LABS: B.E. 0 mmol/L; HCO3 26.4 mmol/L (21-28); Ionized Calcium 1.23 mMOL/L (1.15-1.33); O2 Saturation % 97.7 % (94-98); PCO2 49 mmHg (35-48); PO2 92 mmHg (83-108); Potassium 4.6 mMOL/L (3.5-5.1); pH 7.34 (7.35-7.45)
[2024-12-04 22:10] LABS: Glucose - Point of Care 123 mg/dl (70-99)
[2024-12-04 22:15] LABS: NT-proBNP 1880 pg/ml
[2024-12-04] MEDS: ANCEF 5 IV (22:16)
[2024-12-04] MEDS: LASIX 40 MG IV (22:32)
[2024-12-04] MEDS: CALCIUM CHLORIDE 10% SYRINGE 60 MG IV (23:01)
[2024-12-05] VITALS (29 sets, daily range): BP systolic 98–153; BP diastolic 62–105; PULSE 77; O2SAT 91; BMI 41.3
--- NOTE | 2024-12-05 | PTCARENOTE ---
assessment remains unchanged. VSS. CT drainage WNL. U/O <0.5ml/kg/h. CT PA aware. see worklist for gtt titrations, VS, and I&Os.
[2024-12-05 00:12] LABS: Glucose - Point of Care 97 mg/dl (70-99)
[2024-12-05 01:03] LABS: B.E. 2.6 mmol/L; HCO3 27.9 mmol/L (21-28); Ionized Calcium 1.29 mMOL/L (1.15-1.33); O2 Saturation % 97.8 % (94-98); PCO2 45 mmHg (35-48); PO2 83 mmHg (83-108); Potassium 4.4 mMOL/L (3.5-5.1)
[2024-12-05 01:06] LABS: O2 Therapy SIMV/500/18/5/.60
[2024-12-05] MEDS: DILAUDID 0.25 MG IV (01:30)
[2024-12-05 02:10] LABS: Glucose - Point of Care 86 mg/dl (70-99)
--- NOTE | 2024-12-05 03:33 | W.PN.CT ---
Addendum entered and electronically signed by Talon Cervantes MD 12/05/24 09:15:
I saw and examined the patient.
The PA's note was reviewed and I agree with the note.
Comment:
POD#1 s/p CABG x 4, ELAA
No major overnight events
Maintain yanes today - monitor UO/creat - diuresis today
Maintain CTs
OOB/IS/ambulate later?
Wean O2 as tolerated
Original Note:
Today's Communication / Plan
-
Plan:
-No major issues overnight. Hemodynamically and neurologically intact
-Successfully extubated this AM @ 0510 to midflow Oxygenation. CxR looks clear with mild atelectasis prior to extubation. F/u official report
-Weaned off Levophed overnight, remains on insulin gtt per protocol
-U/O since OR 645 mL
-Monitor chest tube output: 2meds 135/255, R/L pleural 175/220
-Cont. current meds (ASA, Plavix, Lipitor, Lexapro, Amiodarone, held AM dose of Toprol XL given soft BP overnight)
-D/C A-line and SLIC this AM at 0530
-Will Keep yanes another day given KERRIE
-Monitor cr 2.5, was 1.4-1.8 preop. Holding AM BB, needs higher BP to help with renal perfusion
-Placed mag oxide on hold given mg of 2.8
-Will transfer to tele phase when off insulin gtt tomorrow
-Maintain cordis
-Encourage use of IS
-Wean off of O2
-OOB into chair/Ambulate
Assessment / Plan
-
Assessment:
-s/p Median sternotomy/CABG x 4 (DARIUSZ to LAD, GSV to D1, GSV to OM1, GSV to RPDA)/Endoscopic harvest/prep of RLE GSV/Endoscopic/partial open harvest/prep of LLE GSV/ELAA (50mm AtriClip), by Dr. Cervantes, 12/04/24, pod#1
-Newly diagnosed, likely ischemic cardiomyopathy w/ LVEF 30-35% on presentation w/ acute, systolic heart failure; EF improved to 55-60% postop, per intraop ANGELA
-MVCAD including HAND EDGE BANDER of LAD
-NIDDM (hgb A1C 7.5)
-HTN
-HLD
-MO (BMI 41.3) - SD
-Former tobacco use (currently occasional Cigar)
-Prostate CA S/P radical prostatectomy, 2018
-KERRIE (cr 1.4 -1.8 preop)
-S/P R TKA
-Acute postop blood loss/Anemia (stable without blood transfusion)
-Acute postop atelectasis
-Acute postop hypoxemia
-Acute postop hypovolemia with subsequent hypervolemia
Discussed patient care with: Cardiology, Nursing, Respiratory Therapy, Pharmacy and Care Team
Subjective
Procedure
-s/p Median sternotomy/CABG x 4 (DARIUSZ to LAD, GSV to D1, GSV to OM1, GSV to RPDA)/Endoscopic harvest/prep of RLE GSV/Endoscopic/partial open harvest/prep of LLE GSV/ELAA (50mm AtriClip), by Dr. Cervantes, 12/04/24
-
Date of Service: December 05, 2024
Pt c/o incisional pain, otherwise feels well
Objective Data
-
PT 16.6 Sec (11.4-14.6) H 12/04/24 14:39
INR 1.31 12/04/24 14:39
APTT 30.1 Sec (23.4-35.0) 12/04/24 14:39
Vital Signs
Vital Signs
Temp Pulse Resp BP Pulse Ox
99.5 F 76 18 115/72 91
12/05/24 03:00 12/05/24 03:00 12/05/24 03:00 12/05/24 03:00 12/05/24 03:00
CT Intake/Output/Weight
12/04/24 12/04/24 12/05/24
06:59 18:59 06:59
Intake Total 480 / 480 157.5 / 386.0 228.5 / 386.0
Output Total 550 / 550 315 / 935 620 / 935
Balance -70 / -70 -157.5 / -549.0 -391.5 / -549.0
SaO2: 93 (10L midflow oxgenation)
Physical Exam
-
General: Awake, Oriented and AOx3
Cardiovascular: Regular rate & rhythm, No Murmurs, No Rub and No Gallop
Respiratory: Decreased Breath Sounds (at bases, otherwise clear)
Sternum: Stable
Incision: Clean, Dry, Intact and Dressing Intact
Extremities: No Edema
Data Reviewed
-
Lab Results: Results Reviewed
Medications: Active Meds Reviewed
Chest X-Ray: Report Reviewed and Image Reviewed
ECG: Report Reviewed and Image Reviewed
--- NOTE | 2024-12-05 03:45 | PTCARENOTE ---
pt alert and calm, SILVA appropriately. RT placed pt on CPAP/PSV 10/5/40%. CT drainage WNL. U/O <0.5ml/kg/h, CT PA aware. EKG completed.
[2024-12-05] MEDS: ProAIR HFA INHALER 2 PUFF INH (03:52)
[2024-12-05 04:03] LABS: Glucose - Point of Care 108 mg/dl (70-99)
[2024-12-05 04:28] LABS: B.E. 0.6 mmol/L; Ionized Calcium 1.29 mMOL/L (1.15-1.33); PCO2 50 mmHg (35-48); PO2 75 mmHg (83-108); pH 7.34 (7.35-7.45)
[2024-12-05 04:30] LABS: O2 Therapy CPAP
[2024-12-05 04:42] LABS: Hematocrit 33.9 % (39.0-52.0); Hemoglobin 11.5 g/dL (13.0-18.0); Mean Corp Hgb Conc. 33.9 g/dL (33.0-37.0); Mean Corpuscular Hgb 28.9 pg (27.0-31.0); Mean Corpuscular Volume 85.2 fL (80.0-94.0); Mean Platelet Volume 11.1 fL (7.4-10.4); Platelet Count 247 10^3/uL (130-400); Red Blood Cell Count 3.98 10^6/uL (4.70-6.10); Red Cell Dist. Width 14.1 % (11.5-14.5); White Blood Cell Count 17.5 10^3/uL (4.8-10.8)
[2024-12-05] MEDS: ANCEF 5 IV ×2 (04:43→13:38)
[2024-12-05 04:57] LABS: Blood Urea Nitrogen 43 mg/dl (9-20); Calcium 9.5 mg/dl (8.4-10.2); Carbon Dioxide 27 mmol/L (22-30); Chloride 103 mmol/L (98-107); Estimated Creatinine Clearance 38 ml/min; Glucose 104 mg/dl (70-99); Magnesium 2.8 mg/dl (1.6-2.3); Potassium 4.6 mmol/L (3.5-5.1); Sodium 138 mmol/L (135-145); eGFR 28.69
--- NOTE | 2024-12-05 05:10 | PTCARENOTE ---
RT at bedside. pt extubated to 10 L midflow NC.
[2024-12-05] MEDS: OFIRMEV 100 IV (05:11)
[2024-12-05] MEDS: VENTOLIN NEBULES 2.5 MG INH ×2 (05:29→20:06)
[2024-12-05] MEDS: TYLENOL PO (05:34)
[2024-12-05 06:06] LABS: Glucose - Point of Care 89 mg/dl (70-99)
--- NOTE | 2024-12-05 07:30 | PTCARENOTE ---
pt received from outgoing RN, POD1 Cabg x4, oob in a chair, extubated @0500 to 10L midflow, pain controlled, vss, o2 sat 92-95%, rt IJ cordis, CTx4, on insulin and KVO, yanes, all surgical site cdi, NSR with pvc's, hypoactive bs, IV lasix this AM,
IS 500-750ml will continue to encourage and reassess use of IS.
--- NOTE | 2024-12-05 07:37 | W.PN.INTV ---
Today's Communication / Plan
Recommendations
Doing well post extubation, can use home PAP
Pain control
Weaning off gtts per team, chest tubes remain
Encouraged OOB/PT/IS
Can transfer to tele once off gtts
Assessment
-
Patient is a 59-year-old male with previous history of hypertension, SD presenting to ER on 11/26/2024 with increasing shortness of breath with exertion, 40 pound weight gain in the past 8 weeks with increasing abdominal distention and lower
extremity swelling. Echo was completed demonstrating cardiomyopathy with a EF of 30-35%. Left heart catheterization completed 11/27/2024 demonstrating triple-vessel disease with possible ICM. He was evaluated by CT surgery and underwent CABG x 4
12/04/24 and tolerated the procedure well. He is postoperatively transferred to CVICU on mechanical ventilation for further management.
MVCAD s/p CABx 4 12/04/24
Perioperative mechanical ventilation
Acute congestive heart failure
New ischemic cardiomyopathy, EF 30-35%
Shortness of breath with exertion
Postop anemia
KERRIE, BL 0.9; now 1.7-1.8
Hyperglycemia
Conditions present prior to admission
Essential hypertension
Prostate cancer history
SD
Hyperlipidemia
Radical prostatectomy 2018
Right total knee arthroplasty
Left lower extremity debridement
Plan
S/p cabx 4 POD #1
Titrated off pressors per protocol
ECHO reviewed with low function--new ICM EF 30-35%
Management of chest tubes per primary service
Pain control
RASS goal of 0 to -1
Intubated for procedure
Extubated per protocol, doing well
ABG(s) reviewed/adequate
CXR with stable postop changes
Maintain supplement oxygen as needed
Prior history of pulmonary disease: SD on CPAP, would resume/can use home device
No prior PFTs for review
Can add nebulizers if needed
Aspiration precautions
Encouraged incentive spirometry, OOB/ambulation/early mobility
Advance diet as tolerated following extubation
GI prophylaxis if indicated for mechanical ventilation >48 hours
Monitor critical I/O's
Patel/chest tube output
Hb/platelets postoperatively stable
Trend CBC for now
Can transfuse if indicated for Hb <7, plt <50 in surgical patients
DVT prophylaxis including SCDs
Insulin protocol initiated and ongoing
Transition to SQ/off as indicated per team
Diagnostic Data
Chest X-Ray: 11/26/24- Cardiomegaly. Diffusely increased interstitial markings, highly suggestive of interstitial pulmonary edema pattern.
CT Scan: CHEST 11/28/24- 1. Mild calcific atherosclerotic plaque in the coronary arteries.
2. Mild fusiform aneurysmal dilatation of the ascending thoracic aorta (4.1 cm short axis diameter).
3. Moderate cardiomegaly.
4. Moderate airspace consolidation in the posterior and lateral basilar segments of the right lower lobe, small to moderate airspace consolidation in the posterior segment of the right upper lobe, and small airspace consolidation in the left lower
lobe. Diagnostic possibilities are (1) multifocal pneumonia (if there are signs/symptoms of pulmonary infection) or (2) multifocal atelectasis.
5. Mild interstitial cardiogenic pulmonary edema.
6. Mild mediastinal and bilateral hilar lymphadenopathy.
7. Severe multilevel thoracic discogenic degenerative disease.
Echo: ANGELA 12/04/24- Concentric hypertrophy of the left ventricle with normal EF (55-60%) and no regional wall motion abnormalities. Normal right ventricular function. Trace mitral regurgitation. Trace tricuspid regurgitation.
Trace aortic insufficiency. Normal left atrial appendage. Mildly ectatic ascending aorta.
TTE 11/30/24- Mild left ventricular dilation with severe, concentric hypertrophy, mild global hypokinesis and mildly-moderately reduced left ventricular systolic function. Left ventricular ejection fraction is 48% by volumetric assessment. Left
ventricular ejection fraction is 40% visually. Normal right ventricular size and function. Normal atria. No obvious valve abnormalities on this limited study. The IVC is dilated and does not collapse. Right atrial pressure estimated at 15 mmHg.
Compared to prior study of 11/26/2024, left ventricular function is slightly improved. The IVC remains dilated without collapse.
LHC 11/27/24- PA 49/28 (mean 37) mmHg / PCWP 26 mmHg / CO/CI 6.85/3.08 L/min/m2 / SVR 1215 dsc*-5 / PVR 1.6 Wood units
CONCLUSIONS
1. Triple-vessel coronary artery disease as described in a right dominant system
2. Severely elevated biventricular filling pressures, moderate postcapillary pulmonary hypertension, and normal cardiac output
3. No aortic stenosis on hemodynamic pullback
PFT's:
Reports and relevant images were personally reviewed.
Critical Care time 31 mins -- The patient is admitted for acute critical illness for the treatment of vital organ failure and/or prevention of further life-threatening conditions. Total care includes time spent in review of history, physical exam,
medications, hemodynamic/ventilator parameters, laboratory data, imaging and discussion with house staff, pharmacy, respiratory therapy, sticker operator, and nursing.
Subjective Dataa
Subjective Data
Date of Service:
Date of Service: December 05, 2024
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
Subjective:
Doing well, s/p extubation
C/o pain, chest tubes remain
Objective Data
Data Reviewed
Vital Signs / I&O / Oxygen:
Vital Signs
Temp Pulse Resp BP Pulse Ox
99.3 F 82 20 134/78 93
12/05/24 05:00 12/05/24 06:30 12/05/24 06:30 12/05/24 06:07 12/05/24 06:39
Intake and Output
12/04/24 12/05/24 12/06/24
06:59 06:59 06:59
Intake Total 480 / 480 580.4 / 580.4
Output Total 550 / 550 1120 / 1120
Balance -70 / -70 -539.6 / -539.6
SaO2 [CPAP/PSV] 90
SaO2 [SIMV] 91
SaO2 93
Nasal Cannula flow liters per 2
minute
Physical Exam
General: Comfortable and Pain
HEENT: Normocephalic, Anicteric and Moist Mucous Membranes
Cardiovascular: S1-S2 and Regular Rhythm
Respiratory: Clear, Non-Labored Respirations and Chest Tube
GI: Soft, Non Distended and Non Tender
Neurology: Awake, Alert, Oriented and No Motor Deficits
Skin: Warm, Dry and Good Color
Labs/Micro/Reports
Lab Data
12/05/24 04:22
12/05/24 04:22
Laboratory Results
12/04/24 12/04/24 12/04/24
14:39 18:12 21:40
PT 16.6 H
INR 1.31
APTT 30.1
pH 7.43 7.41 7.34 L
pCO2 42 46 49 H
pO2 75 L 102 92
HCO3 27.9 29.2 H 26.4
O2 Delivery Level Simv 80%
12/05/24 12/05/24
00:58 04:22
PT
INR
APTT
pH 7.40 7.34 L
pCO2 45 50 H
pO2 83 75 L
HCO3 27.9 27.0
O2 Delivery Level Simv/500/18/5/.60 Cpap
[2024-12-05] MEDS: NEURONTIN 100 MG PO ×3 (08:09→22:11)
[2024-12-05] MEDS: LASIX 40 MG IV ×2 (08:09→14:43)
[2024-12-05 08:10] LABS: Glucose - Point of Care 108 mg/dl (70-99)
[2024-12-05] MEDS: PLAVIX 75 MG PO (08:10)
[2024-12-05] MEDS: VITAMIN C 500 MG PO (08:10)
[2024-12-05] MEDS: LEXAPRO 10 MG PO (08:10)
[2024-12-05] MEDS: SENOKOT-S 1 TABLET PO ×2 (08:10→19:56)
[2024-12-05] MEDS: PROTONIX 40 MG PO (08:10)
[2024-12-05] MEDS: LIPITOR 40 MG PO (08:10)
[2024-12-05] MEDS: PACERONE 200 MG PO ×3 (08:10→22:12)
[2024-12-05] MEDS: ZAROXOLYN 5 MG PO (08:10)
[2024-12-05] MEDS: LOW STRENGTH ASPIRIN 81 MG PO (08:10)
[2024-12-05] MEDS: FEOSOL 325 MG PO (08:10)
[2024-12-05] MEDS: BACTROBAN 2% OINTMENT 1 APPLIC NASAL ×2 (08:11→19:56)
[2024-12-05] MEDS: LIDOCAINE 4% PATCH TOPICAL (08:11)
[2024-12-05] MEDS: ROXICODONE 5 MG PO ×3 (09:23→19:55)
[2024-12-05 10:22] LABS: Glucose - Point of Care 87 mg/dl (70-99)
[2024-12-05 11:24] LABS: Glucose - Point of Care 92 mg/dl (70-99)
[2024-12-05] MEDS: TOPROL XL 25 MG PO (11:29)
[2024-12-05] MEDS: FLEXERIL 5 MG PO (11:31)
--- NOTE | 2024-12-05 11:41 | W.PN.CD ---
Today's Communication / Plan
-
agree with iv lasix
ics
Impression / Plan
-
CAD s/p CABG 12/04/24
-CABG x 4 (DARIUSZ to LAD, GSV to D1, GSV to OM1, GSV to RPDA)
-ELAA (50mm AtriClip)
-oob to chair
-taking deep breaths
-Continue ASA, Atorvastatin, and Eventual Carvedilol.
ICM, EF 40%, with acute HFrEF:
-in setting of NSTEMI
-Severely elevated biventricular filling pressures, moderate postcapillary pulmonary hypertension, and normal cardiac outp
-ECHO 11/26/24: LVEF 40%, global HK, no sig valve disease
-GDMT to start after CABG
-Continue in store banker.
-iv lasix today with intensive monitoring
NSVT: no hd significant, bb eventually, lytes fine
-monitor on tele
KERRIE: Cr up to 3, still making urine, monitor
HTN:
-monitor post op
DM2:
-management per primary
SD:
-continue CPAP
Obesity, morbid:
-will benefit from weight loss moving forward
Subjective:
he is feeling ok--like he had heart surgery yesterday.
Physical Exam
Vital Signs/Labs
Vital Signs
Temp Pulse Resp BP Pulse Ox
97.3 F 81 25 119/82 95
12/05/24 08:00 12/05/24 11:00 12/05/24 11:00 12/05/24 10:17 12/05/24 11:00
12/04/24 12/05/24 12/06/24
06:59 06:59 06:59
Actual Weight 255 lb 15.307 oz 255 lb 8.252 oz
12/05/24 04:22
PT 16.6 Sec (11.4-14.6) H 12/04/24 14:39
INR 1.31 12/04/24 14:39
APTT 30.1 Sec (23.4-35.0) 12/04/24 14:39
Magnesium 2.8 mg/dl (1.6-2.3) H 12/05/24 04:22
Triglycerides 110 mg/dl (10-149) 11/27/24 07:32
LDL Cholesterol, Calc 76 mg/dl 11/27/24 07:32
VLDL Cholesterol, Calc 22 mg/dl (0-30) 11/27/24 07:32
HDL Cholesterol 46 mg/dl 11/27/24 07:32
11/26/24 12/04/24
10:07 21:40
Xzz-W-Zdlfzjiemgv Pept 2860 1880
Physical Exam
Constitutional: No acute distress
Cardiovascular: Rhythm & rate is regular, Pedal edema is absent (noemi wraps bl), Systolic murmur absent and Diastolic murmur absent
Respiratory: Respiratory effort normal, Lungs clear to auscul., Wheeze Absent, Crackles Absent and Rhonchi Absent
Neuro/Psych: AO x 3
Data Reviewed
-
Date of Service: December 05, 2024
EKG: Other (tele sinus with pacs)
[2024-12-05 12:22] LABS: Glucose - Point of Care 124 mg/dl (70-99)
--- NOTE | 2024-12-05 12:26 | PTCARENOTE ---
Pt reassessment unchanged from previous, vss wnl, 10L midflow sat 93-96%, continue to diuresis, bmp this afternoon to trend Cr lvls, pain management with oxy prn.
[2024-12-05] MEDS: NSS IV (13:39)
[2024-12-05] MEDS: TYLENOL 1000 MG PO ×2 (13:39→22:11)
[2024-12-05 13:47] LABS: Glucose - Point of Care 103 mg/dl (70-99)
[2024-12-05 14:09] LABS: Blood Urea Nitrogen 50 mg/dl (9-20); Calcium 9.2 mg/dl (8.4-10.2); Carbon Dioxide 27 mmol/L (22-30); Chloride 99 mmol/L (98-107); Estimated Creatinine Clearance 31 ml/min; Glucose 100 mg/dl (70-99); Potassium 4.7 mmol/L (3.5-5.1); Sodium 136 mmol/L (135-145); eGFR 23.06
[2024-12-05 14:48] LABS: Glucose - Point of Care 84 mg/dl (70-99)
--- NOTE | 2024-12-05 15:38 | W.PN.ANS.POP ---
Anesthesia Post Operative
- Anesthesia Post Op Note
Vital Signs Stable-See Nursing Note: Yes
Airway Patent: Yes
Adequate Pain Control: Yes
Change in Mental Status: No
Current Postoperative Nausea & Vomiting: No
Anesthesia Complications: No
General Anesthetic Recall: No
Unplanned Admission: No
Post Op Hydration Adequate: Yes
[2024-12-05 15:46] LABS: Glucose - Point of Care 103 mg/dl (70-99)
--- NOTE | 2024-12-05 16:15 | PTCARENOTE ---
pt reassessment unchanged from previous, vss, 6L Mf O2, rt ij cordis, ct x4, yanes, IV lasix, cr bump 2.5-->3, hypoactive bs not passing gas, no solid food yet, IV insulin till tomorrow afternoon, pain management.
[2024-12-05 17:56] LABS: Glucose - Point of Care 108 mg/dl (70-99)
--- NOTE | 2024-12-05 20:00 | PTCARENOTE ---
Assumed care of patient at 1900. Patient found resting in bed at time of assessment. Patient is AOx4, follows commands appropriately, moves all extremities. Lung sounds are diminished throughout, respirations are shallows, 500 IS, saO2 91% on 4L via
NC. Heart sounds are audible although distant, patient is SR with occasional PVCs on the monitor, patient has normal palpable pulses and +1 generalized anasarca. Patient has hypoactive BS no food during the day, Patel catheter still present draining
clear yellow urine. There is a sternal incision with aquacell dressing that is CDI, ABD dressing over CT wounds that is CDI, R/L groin punctures with 4x4 gauze dressing that is CDI, RLE incisionx2 approx with surg adhesive BLAIR and LLE incisionx2
with aquacell dressings that are CDI. Patient has R IJ cordis receiving KVO and R AC 18G with insulin gtt. Patient c/o moderate pain given gary 5 per parameters. Nebulizer treatment provided per CT PA. Call lewis within reach.
[2024-12-05 20:08] LABS: Glucose - Point of Care 91 mg/dl (70-99)
[2024-12-05 22:17] LABS: Glucose - Point of Care 98 mg/dl (70-99)
[2024-12-06] VITALS (25 sets, daily range): BP systolic 127–163; BP diastolic 75–109; BMI 41.5
--- NOTE | 2024-12-06 | PTCARENOTE ---
Patient reassessed. VSS. Remains SR with occasional PVCs on the monitor. Good UOP. Minimal CT output. Somewhat high blood pressures following albuterol neb CT PA notified advised to monitor for now. Call lewis within reach.
[2024-12-06 00:11] LABS: Glucose - Point of Care 103 mg/dl (70-99)
[2024-12-06] MEDS: ROXICODONE 5 MG PO ×4 (01:06→21:00)
[2024-12-06 02:07] LABS: Glucose - Point of Care 94 mg/dl (70-99)
--- NOTE | 2024-12-06 03:19 | W.PN.CT ---
Addendum entered and electronically signed by Talon Cervantes MD 12/06/24 09:16:
I saw and examined the patient.
The PA's note was reviewed and I agree with the note.
Comment:
POD#2 s/p CABG x 4, ELAA
No major overnight events.
D/C CTs
Maintain yanes: UO: 1980/last 24 hours; 60/hr currently. Creat UP to 3.4 - will consult nephrology
Wean O2 as tolerated, OOB/IS/ambulate later
Permissive HTN in the setting of acute postoperative KERRIE
Original Note:
Today's Communication / Plan
-
Plan:
-No major issues overnight. Hemodynamically and neurologically intact
-Currently on insulin gtt, will transition off today per protocol. Tele phase when off
-Currently on 5L NC with O2sats 91%
-Consider D/C of chest tubes: 2 meds
-Received a total of 80 mg IV Lasix yesterday, plus 5mg PO Zaroxolyn
-24hr U/O 1930 mL
-Monitor Creatinine, 1.5->1.7->2.5->3.0->3.4; was 1.4-1.8 preop. Will consider Nephrology consult
-Maintain yanes catheter
-Monitor chest tube output: 2meds 0/45, R/L pleural 20/155
-Cont. current meds (ASA, Plavix, Lipitor, Lexapro, Amiodarone, Toprol XL)
-Placed mag oxide on hold given mg of 2.6
-Maintain cordis another day
-Encourage use of IS
-Wean off of O2
-OOB into chair/Ambulate
Assessment / Plan
-
Assessment:
-s/p Median sternotomy/CABG x 4 (DARIUSZ to LAD, GSV to D1, GSV to OM1, GSV to RPDA)/Endoscopic harvest/prep of RLE GSV/Endoscopic/partial open harvest/prep of LLE GSV/ELAA (50mm AtriClip), by Dr. Cervantes, 12/04/24, pod#2
-Newly diagnosed, likely ischemic cardiomyopathy w/ LVEF 30-35% on presentation w/ acute, systolic heart failure; EF improved to 55-60% postop, per intraop ANGELA
-MVCAD including CERTIFIED MEDICAL AIDE of LAD
-NIDDM (hgb A1C 7.5)
-HTN
-HLD
-MO (BMI 41.3) - SD
-Former tobacco use (currently occasional Cigar)
-Prostate CA S/P radical prostatectomy, 2018
-KERRIE (cr 1.4 -1.8 preop)
-S/P R TKA
-Acute postop blood loss/Anemia (stable without blood transfusion)
-Acute postop atelectasis
-Acute postop hypoxemia
-Acute postop hypovolemia with subsequent hypervolemia
Discussed patient care with: Cardiology, Nursing, Respiratory Therapy, Pharmacy and Care Team
Subjective
Procedure
-s/p Median sternotomy/CABG x 4 (DARIUSZ to LAD, GSV to D1, GSV to OM1, GSV to RPDA)/Endoscopic harvest/prep of RLE GSV/Endoscopic/partial open harvest/prep of LLE GSV/ELAA (50mm AtriClip), by Dr. Cervantes, 12/04/24
-
Date of Service: December 06, 2024
Pt c/o mild incisional pain, otherwise feels well
Objective Data
-
PT 16.6 Sec (11.4-14.6) H 12/04/24 14:39
INR 1.31 12/04/24 14:39
APTT 30.1 Sec (23.4-35.0) 12/04/24 14:39
Vital Signs
Vital Signs
Temp Pulse Resp BP Pulse Ox
98.5 F 80 18 138/88 91
12/05/24 23:00 12/06/24 02:00 12/06/24 02:00 12/06/24 02:00 12/06/24 02:00
CT Intake/Output/Weight
12/05/24 12/05/24 12/06/24
06:59 18:59 06:59
Intake Total 422.9 / 590.8 371.6 / 456.8 85.2 / 456.8
Output Total 805 / 1175 1215 / 1825 610 / 1825
Balance -382.1 / -584.2 -843.4 / -1368.2 -524.8 / -1368.2
SaO2: 91 (6L)
Physical Exam
-
General: Awake, Oriented and AOx3
Cardiovascular: Regular rate & rhythm, No Murmurs, No Rub and No Gallop
Respiratory: Decreased Breath Sounds (at bases)
Sternum: Stable
Incision: Clean, Dry, Intact and Dressing Intact
Extremities: Other (+trace edema)
Data Reviewed
-
Lab Results: Results Reviewed
Medications: Active Meds Reviewed
Chest X-Ray: Report Reviewed and Image Reviewed
ECG: Report Reviewed and Image Reviewed
[2024-12-06 03:27] LABS: Hemoglobin 10.6 g/dL (13.0-18.0); Mean Corp Hgb Conc. 33.1 g/dL (33.0-37.0); Mean Corpuscular Hgb 28.6 pg (27.0-31.0); Mean Corpuscular Volume 86.3 fL (80.0-94.0); Platelet Count 228 10^3/uL (130-400); Red Blood Cell Count 3.71 10^6/uL (4.70-6.10); Red Cell Dist. Width 14.3 % (11.5-14.5); White Blood Cell Count 14.1 10^3/uL (4.8-10.8)
[2024-12-06 03:49] LABS: Blood Urea Nitrogen 57 mg/dl (9-20); Calcium 9.1 mg/dl (8.4-10.2); Carbon Dioxide 28 mmol/L (22-30); Chloride 96 mmol/L (98-107); Estimated Creatinine Clearance 28 ml/min; Glucose 96 mg/dl (70-99); Magnesium 2.6 mg/dl (1.6-2.3); Potassium 4.3 mmol/L (3.5-5.1); Sodium 135 mmol/L (135-145); eGFR 19.84
[2024-12-06 04:23] LABS: Glucose - Point of Care 100 mg/dl (70-99)
[2024-12-06] MEDS: FLEXERIL 5 MG PO (04:26)
[2024-12-06 05:47] LABS: Lactic Acid 1.1 mmol/L (0.7-2.0)
[2024-12-06 06:09] LABS: Glucose - Point of Care 94 mg/dl (70-99)
[2024-12-06] MEDS: TYLENOL 1000 MG PO ×3 (06:25→22:35)
[2024-12-06] MEDS: NOVOLIN R INSULIN INFUSION 100 IV (06:28)
--- NOTE | 2024-12-06 06:47 | PTCARENOTE ---
Patient reassessed. BP remains high CT PA aware advised to monitor. AM labs obtained. Cr noted to be elevated. F/u lactic acid ordered by CT PA. OOB to chair without incident. Anu 5 for pain and flexeril for muscle spasms. Call lewis within reach.
--- NOTE | 2024-12-06 07:44 | W.PN.INTV ---
Today's Communication / Plan
Recommendations
Doing well today, titrated off insulin gtt
Chest tubes to be removed today
Encouraged further OOB to chair/PT
Can likely transfer to tele once off gtts, we will sign off upon transfer
Assessment
-
Patient is a 59-year-old male with previous history of hypertension, SD presenting to ER on 11/26/2024 with increasing shortness of breath with exertion, 40 pound weight gain in the past 8 weeks with increasing abdominal distention and lower
extremity swelling. Echo was completed demonstrating cardiomyopathy with a EF of 30-35%. Left heart catheterization completed 11/27/2024 demonstrating triple-vessel disease with possible ICM. He was evaluated by CT surgery and underwent CABG x 4
12/04/24 and tolerated the procedure well. He is postoperatively transferred to CVICU on mechanical ventilation for further management.
MVCAD s/p CABx 4 12/04/24
Perioperative mechanical ventilation
Acute congestive heart failure
New ischemic cardiomyopathy, EF 30-35%
Shortness of breath with exertion
Postop anemia
KERRIE, BL 0.9; now 1.7-1.8
Hyperglycemia
Conditions present prior to admission
Essential hypertension
Prostate cancer history
SD
Hyperlipidemia
Radical prostatectomy 2018
Right total knee arthroplasty
Left lower extremity debridement
Plan
S/p cabx 4 POD #2
Titrated off pressors per protocol
ECHO reviewed with low function--new ICM EF 30-35%
Management of chest tubes per primary service
Pain control
RASS goal of 0 to -1
Intubated for procedure
Extubated per protocol, doing well
ABG(s) reviewed/adequate
CXR with stable postop changes
Maintain supplement oxygen as needed
Prior history of pulmonary disease: SD on CPAP, would resume/can use home device
No prior PFTs for review
Can add nebulizers if needed
Aspiration precautions
Encouraged incentive spirometry, OOB/ambulation/early mobility
Advance diet as tolerated following extubation
GI prophylaxis if indicated for mechanical ventilation >48 hours
Monitor critical I/O's
Patel/chest tube output
Hb/platelets postoperatively stable
Trend CBC for now
Can transfuse if indicated for Hb <7, plt <50 in surgical patients
DVT prophylaxis including SCDs
Insulin protocol initiated
Transitioning to SQ/off as indicated per team
Diagnostic Data
Chest X-Ray: 11/26/24- Cardiomegaly. Diffusely increased interstitial markings, highly suggestive of interstitial pulmonary edema pattern.
CT Scan: CHEST 11/28/24- 1. Mild calcific atherosclerotic plaque in the coronary arteries.
2. Mild fusiform aneurysmal dilatation of the ascending thoracic aorta (4.1 cm short axis diameter).
3. Moderate cardiomegaly.
4. Moderate airspace consolidation in the posterior and lateral basilar segments of the right lower lobe, small to moderate airspace consolidation in the posterior segment of the right upper lobe, and small airspace consolidation in the left lower
lobe. Diagnostic possibilities are (1) multifocal pneumonia (if there are signs/symptoms of pulmonary infection) or (2) multifocal atelectasis.
5. Mild interstitial cardiogenic pulmonary edema.
6. Mild mediastinal and bilateral hilar lymphadenopathy.
7. Severe multilevel thoracic discogenic degenerative disease.
Echo: ANGELA 12/04/24- Concentric hypertrophy of the left ventricle with normal EF (55-60%) and no regional wall motion abnormalities. Normal right ventricular function. Trace mitral regurgitation. Trace tricuspid regurgitation.
Trace aortic insufficiency. Normal left atrial appendage. Mildly ectatic ascending aorta.
TTE 11/30/24- Mild left ventricular dilation with severe, concentric hypertrophy, mild global hypokinesis and mildly-moderately reduced left ventricular systolic function. Left ventricular ejection fraction is 48% by volumetric assessment. Left
ventricular ejection fraction is 40% visually. Normal right ventricular size and function. Normal atria. No obvious valve abnormalities on this limited study. The IVC is dilated and does not collapse. Right atrial pressure estimated at 15 mmHg.
Compared to prior study of 11/26/2024, left ventricular function is slightly improved. The IVC remains dilated without collapse.
LHC 11/27/24- PA 49/28 (mean 37) mmHg / PCWP 26 mmHg / CO/CI 6.85/3.08 L/min/m2 / SVR 1215 dsc*-5 / PVR 1.6 Wood units
CONCLUSIONS
1. Triple-vessel coronary artery disease as described in a right dominant system
2. Severely elevated biventricular filling pressures, moderate postcapillary pulmonary hypertension, and normal cardiac output
3. No aortic stenosis on hemodynamic pullback
PFT's:
Reports and relevant images were personally reviewed.
Critical Care time 31 mins -- The patient is admitted for acute critical illness for the treatment of vital organ failure and/or prevention of further life-threatening conditions. Total care includes time spent in review of history, physical exam,
medications, hemodynamic/ventilator parameters, laboratory data, imaging and discussion with house staff, pharmacy, respiratory therapy, tester rocket engine, and nursing.
Subjective Dataa
Subjective Data
Date of Service:
Date of Service: December 06, 2024
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
Subjective:
Doing well, weaning off insulin
Feels better today, sitting in chair
Objective Data
Data Reviewed
Vital Signs / I&O / Oxygen:
Vital Signs
Temp Pulse Resp BP Pulse Ox
98.5 F 86 22 160/93 90
12/06/24 03:00 12/06/24 06:00 12/06/24 06:00 12/06/24 05:00 12/06/24 06:00
Intake and Output
12/05/24 12/06/24 12/07/24
06:59 06:59 06:59
Intake Total 580.4 / 590.8 979.0 / 979.0
Output Total 1120 / 1175 2225 / 2225
Balance -539.6 / -584.2 -1246.0 / -1246.0
SaO2 [CPAP/PSV] 90
SaO2 [SIMV] 91
SaO2 90
Nasal Cannula flow liters per 5
minute
Physical Exam
General: Comfortable and Pain
HEENT: Normocephalic, Anicteric and Moist Mucous Membranes
Cardiovascular: S1-S2 and Regular Rhythm
Respiratory: Clear, Non-Labored Respirations and Chest Tube
GI: Soft, Non Distended and Non Tender
Neurology: Awake, Alert, Oriented and No Motor Deficits
Skin: Warm, Dry and Good Color
Labs/Micro/Reports
Lab Data
12/06/24 03:13
12/06/24 03:13
--- NOTE | 2024-12-06 08:00 | PTCARENOTE ---
Assumed care of patient. Pt assessed while he was sitting in the chair. Pt alert and oriented x4. Pt rates sternal pain 3/10. Denies nausea, shortness of breath. SILVA with equal strength throughout. NSR on tele with rates in the 80s. BP 147/84. Heart
tones audible. Bilateral radial and DP pulses palpable. +1 edema to b/l hands. POX 92% on 6L NC. Lungs diminished in the bases. IS encouraged-750mL achieved. Occasional nonproductive cough noted. Mediastinal chest tubes x2 y-sited to 1 atrium to
-20cm suction draining serosanguineous fluid. Right and left pleural chest tubes y-sited to 1 atrium to -20cm suction draining serosanguineous fluid. No air leaks, tidaling, crepitus. Abdomen large, round, obese, nontender. Hypoactive BS. Patel
catheter intact draining adequate amounts of clear yellow urine. Sternal incision with antibacterial dressing CDI. Chest tube dressing CDI. Right groin ecchymotic. Left groin approximated, SECURITY SYSTEM SALES CONSULTANT. Right SVG harvest approximated BLAIR. Left SVG harvest
with Antibacterial dressing CDI. Right IJ cordis intact infusing NSS KVO. Right AC 18g PIV intact infusing insulin gtt per critical care glycemic protocol. See MAR for medication administration. See worklist for complete nursing assessment. plan of
care reviewed and patient in agreement.
[2024-12-06 08:15] LABS: Glucose - Point of Care 111 mg/dl (70-99)
[2024-12-06] MEDS: PLAVIX 75 MG PO (08:16)
[2024-12-06] MEDS: LIDOCAINE 4% PATCH 1 PATCH TOPICAL (08:16)
[2024-12-06] MEDS: SENOKOT-S 1 TABLET PO ×2 (08:16→21:01)
[2024-12-06] MEDS: LOW STRENGTH ASPIRIN 81 MG PO (08:16)
[2024-12-06] MEDS: PROTONIX 40 MG PO (08:16)
[2024-12-06] MEDS: BACTROBAN 2% OINTMENT 1 APPLIC NASAL ×2 (08:16→21:00)
[2024-12-06] MEDS: LIPITOR 40 MG PO (08:16)
[2024-12-06] MEDS: TOPROL XL 25 MG PO (08:17)
[2024-12-06] MEDS: VITAMIN C 500 MG PO (08:17)
[2024-12-06] MEDS: PACERONE 200 MG PO ×3 (08:17→22:35)
[2024-12-06] MEDS: NEURONTIN 100 MG PO ×3 (08:17→22:35)
[2024-12-06] MEDS: FEOSOL 325 MG PO (08:17)
[2024-12-06] MEDS: LEXAPRO 10 MG PO (08:17)
[2024-12-06 10:04] LABS: Glucose - Point of Care 136 mg/dl (70-99)
--- NOTE | 2024-12-06 10:29 | W.CON.NEPH ---
Consultation
-
Date/Time Consultation Requested: 12/06/2024 9 AM
Date/Time Consultation Performed: 12/06/2024 10 AM
Requesting Provider: Dr. Cervantes
Performing Provider: Dr. Urbina
Reason for Consultation: KERRIE
Medical History
-
Chief Complaint: KERRIE
History of Present Illness:
This is a 5-year-old gentleman who has hypertension on a multidrug regimen typically stable though he does not recall how his blood pressures typically run as outpatient. He has hyperlipidemia statin therapy also stable. He had a prior history of
diabetes though he says that he had controlled his A1c with diet alone. He says that he was able to get his A1c down to 5.0 with diet. He is therefore on no medications for that. About 8 weeks prior to admission he began noticing significant
weight gain but more importantly shortness of breath. This was what prompted his admission. He says that he did not necessarily notice any worsening lower extremity edema though he always has some at baseline. On admission he was felt to be in
acute decompensated heart failure. Echocardiogram at that time disclosed an ejection fraction of around 40%. He was diuresed and ultimately underwent left heart catheterization. Cardiac pressures were elevated but he was noted to have multivessel
disease. His creatinine at the time of admission was 1.3 had risen shortly after with diuresis and cardiac catheterization up to a high of 1.8. And then began to settle. He then underwent CABG on December 04. There were no complications during the
surgery. He was on pump. After surgery however his creatinine began to rise now at 3.4 representing acute kidney injury for which we are now asked to assist with management of. He has remained nonoliguric and responsive to diuretic therapy.
There have been no hypotensive episodes.
Past Medical History
Prostate cancer, prostatectomy no radiation or chemo or antiandrogen therapy
Diabetes mellitus type 2
Hypertension
Hyperlipidemia
Left lower leg surgery for injury from oyster shell
Right knee surgery
Left axillary carbuncle surgery
Sleep apnea
Social History
Tobacco: Other (Occasional cigar)
Alcohol: Former (Former alcoholic)
Family History
No known CKD
Family History: Not Pertinent
Allergies / Home Medications
Allergy/AdvReac Type Severity Reaction Status Date / Time
ampicillin [Ampicillin] Allergy Unknown Verified 11/26/24 09:23
metformin Allergy Unknown Verified 11/26/24 09:24
�Medication �Instructions �Recorded �Confirmed �Type
amlodipine 10 mg tablet 10 mg PO DAILY Blood Pressure 10/23/14 11/26/24 History
atorvastatin 10 mg tablet 40 mg PO DAILY High Cholesterol 10/23/14 11/26/24 History
escitalopram oxalate 10 mg tablet 10 mg PO DAILY Depression 11/26/24 11/26/24 History
esomeprazole magnesium 40 mg 40 mg PO DAILY Gastrointestinal 11/26/24 11/26/24 History
capsule,delayed release Issue
losartan 100 mg tablet 100 mg PO DAILY Blood Pressure 11/26/24 11/26/24 History
metoprolol succinate 50 mg 50 mg PO DAILY Blood Pressure 11/26/24 11/26/24 History
tablet,extended release 24 hr
Review of Systems
-
No chest pain or shortness of breath.
All other systems: Negative unless noted
Physical Exam
Vital Signs
Vital Signs
Temp Pulse Resp BP Pulse Ox
98.5 F 81 22 147/87 92
12/06/24 03:00 12/06/24 10:00 12/06/24 06:00 12/06/24 10:00 12/06/24 10:00
Lab Results
WBC 14.1 10^3/uL (4.8-10.8) H 12/06/24 03:13
RBC 3.71 10^6/uL (4.70-6.10) L 12/06/24 03:13
Hgb 10.6 g/dL (13.0-18.0) L 12/06/24 03:13
Hct 32.0 % (39.0-52.0) L 12/06/24 03:13
Plt Count 228 10^3/uL (130-400) 12/06/24 03:13
Sodium 135 mmol/L (135-145) 12/06/24 03:13
Potassium 4.3 mmol/L (3.5-5.1) 12/06/24 03:13
Chloride 96 mmol/L (98-107) L 12/06/24 03:13
Carbon Dioxide 28 mmol/L (22-30) 12/06/24 03:13
BUN 57 mg/dl (9-20) H 12/06/24 03:13
Creatinine 3.4 mg/dL (0.7-1.3) H 12/06/24 03:13
eGFR 19.84 12/06/24 03:13
Glucose 96 mg/dl (70-99) 12/06/24 03:13
Calcium 9.1 mg/dl (8.4-10.2) 12/06/24 03:13
Dik-Z-Vcgpvppbivk Pept 1880 pg/ml 12/04/24 21:40
Albumin 4.2 g/dl (3.5-5.0) 11/28/24 04:52
Physical Exam
Patient is awake alert oriented and in no distress. Mood and affect were pleasant, insight and judgment were good. Pupils are equal round and reactive to light, extraocular movements are intact, sclera were anicteric. Hearing was normal, ears and
nose are intact. Oropharynx was clear. Neck was supple with trachea midline and no thyromegaly. Heart was regular rate and rhythm without rubs. Lower extremities with 2+ edema. Lungs were clear to auscultation bilaterally and with normal
excursion. Abdomen was soft, nontender, with normal active bowel sounds, and no hepatosplenomegaly. Skin was without rash and with normal turgor.
Data Reviewed
-
Radiology: Image Personally Visualized and interpreted (Chest x-ray 12/06/2024 by my reading shows cardiomegaly the lung volumes)
Ultrasound: Report Reviewed by me (Ultrasound 11/29/2024 right kidney 12.2 cm left kidney 12.7 cm, complex right kidney cyst)
Medical Tests (Nuc Med, Echo etc): Report Reviewed by me (Intraoperative echocardiogram [phone]% EF trace MR trace TR trace AI)
Labs: Labs Reviewed by me
Old Records: Requested
Assessment/Plan
-
Assessment
CAD status post CABG
KERRIE related to cardiac surgery, predisposed by DKD
Probable CKD 3B
Diabetes mellitus type 2
Proteinuria
Hyperdense right renal cyst
Hypertension
Hyperlipidemia
Recovered ejection fraction
Plan
Quantify proteinuria
Follow BMP, I suspect he will plateau less than 4
Try to obtain old records for creatinine, A1c, urine proteinuria
No ARB
No SGLT2i
Okay for diuretics if needed
Will need eventual CT of the abdomen for right hyperdense renal cyst
--- NOTE | 2024-12-06 11:00 | PTCARENOTE ---
4 chest tubes d/c per orders. Pt tolerated. All approximated with sutures, Dressing applied.
--- NOTE | 2024-12-06 11:22 | W.PN.CD ---
Today's Communication / Plan
-
hold lasix
continue to monitor for renal recovery
Impression / Plan
-
CAD s/p CABG 12/04/24
-CABG x 4 (DARIUSZ to LAD, GSV to D1, GSV to OM1, GSV to RPDA)
-ELAA (50mm AtriClip)
-oob to chair
-taking deep breaths
-Continue ASA, Atorvastatin, and Metoprolol
ICM, EF 40%, with acute HFrEF:
-in setting of NSTEMI
-Severely elevated biventricular filling pressures, moderate postcapillary pulmonary hypertension, and normal cardiac outp
-ECHO 11/26/24: LVEF 40%, global HK, no sig valve disease
-GDMT with renal recovery
-Continue audio/visual operator.
-no lasix today
NSVT: none on tele today
KERRIE: Cr up to 3.4, still making urine,
-Suspect ATN
HTN:
-monitor post op
DM2:
-management per primary
SD:
-continue CPAP
Obesity, morbid:
-will benefit from weight loss moving forward
Subjective:
he is feeling pretty good, taking deep breaths, no dizziness
Physical Exam
Vital Signs/Labs
Vital Signs
Temp Pulse Resp BP Pulse Ox
97.9 F 81 16 134/97 93
12/06/24 11:00 12/06/24 11:06 12/06/24 11:00 12/06/24 11:06 12/06/24 11:00
12/05/24 12/06/24 12/07/24
06:59 06:59 06:59
Actual Weight 255 lb 8.252 oz 257 lb 0.944 oz
12/06/24 03:13
12/06/24 03:13
PT 16.6 Sec (11.4-14.6) H 12/04/24 14:39
INR 1.31 12/04/24 14:39
APTT 30.1 Sec (23.4-35.0) 12/04/24 14:39
Magnesium 2.6 mg/dl (1.6-2.3) H 12/06/24 03:13
Triglycerides 110 mg/dl (10-149) 11/27/24 07:32
LDL Cholesterol, Calc 76 mg/dl 11/27/24 07:32
VLDL Cholesterol, Calc 22 mg/dl (0-30) 11/27/24 07:32
HDL Cholesterol 46 mg/dl 11/27/24 07:32
11/26/24 12/04/24
10:07 21:40
Eqy-B-Fckpufodnjo Pept 2860 1880
Physical Exam
Constitutional: No acute distress
Cardiovascular: Rhythm & rate is regular, Pedal edema is absent, JVD pressure is normal, Systolic murmur absent, Diastolic murmur absent and Pedal edema present (trace b/l)
Respiratory: Respiratory effort normal, Lungs clear to auscul., Wheeze Absent, Crackles Absent and Rhonchi Absent
Neuro/Psych: AO x 3
Data Reviewed
-
Date of Service: December 06, 2024
EKG: Other (tele sinus pacs, pvcs)
[2024-12-06 11:46] LABS: Protein/creatinine Ratio 0.3; Urine Protein 29 mg/dl
--- NOTE | 2024-12-06 12:00 | PTCARENOTE ---
Pt reassessed. NSR on tele with rates in the 80s. BP 137/109. POX 90% on 6L NC. Pt assisted from bed to chair. Patel continues to drain adequate urine. Insulin continues to infuse.
[2024-12-06 12:16] LABS: Glucose - Point of Care 99 mg/dl (70-99)
[2024-12-06] MEDS: NSS IV (12:22)
[2024-12-06 14:28] LABS: Glucose - Point of Care 171 mg/dl (70-99)
--- NOTE | 2024-12-06 15:30 | PTCARENOTE ---
Pt reassessed. Sitting up in the chair. Rates sternal pain 3/10. SR on tele with rates in the 80s. BP 135/75. POX 94%, titrated to 7L midflow NC. Surgical sites stable. CT [employer] PL[employer] ATTENDANT made aware of increased O2 demands after walk, lasix ordered.
administered. Insulin gtt d/c per orders. No other acute changes from previous assessment.
[2024-12-06] MEDS: LASIX 60 MG IV (15:36)
[2024-12-06 15:40] LABS: Glucose - Point of Care 165 mg/dl (70-99)
[2024-12-06] MEDS: NOVOLOG FLEXPEN-MODERATE RESISTANCE 1 UNITS SC (17:59)
[2024-12-06 18:03] LABS: Glucose - Point of Care 170 mg/dl (70-99)
[2024-12-06] MEDS: CORDARONE 103 MG IV (18:41)
[2024-12-06] MEDS: CORDARONE 518 MG IV (18:55)
--- NOTE | 2024-12-06 21:00 | PTCARENOTE ---
Patient received OOB in chair watching television. Patient A+A+Ox3. No neurological deficits noted. Patient assisted to bedside commode with assist x1 then to bed. No BM. Positive flatus. No c/o headache, dizziness or lightheadedness. Mild
AARON. Midflow Oxygen 8L. SpO2 90-91%. Lungs diminished throughout lung [place]. Occasional productive cough - Small amount of thick tannish secretions - One blood tinged secretion. Breathing treatment to be administered by Respiratory therapist.
No s/s of respiratory distress. Chest tube dressing intact. Sinus Rhythm with frequent PAC's. Short burst of Atrial Fibrillation. Heart rate 80's. Amiodarone gtt infusing at 1 mg/min (33.3 ml/hr) per protocol. Patient with no c/o chest pain,
pressure or discomfort. Abdomen round, obese, nontender. Normoactive bowel sounds. Patel catheter - Temperature sensing - Britney, yellow urine - Outputs as documented. Positive, palpable pulses. Generalized edema. Patient with no c/o back or
flank pain. Sternal dressing intact. Right groin puncture site intact. Right lower leg incisions intact - Surgical adhesive. Left groin and left lower extremity with dressing intact. Right I.J. Cordis. Assessment as documented.
[2024-12-06] MEDS: VENTOLIN NEBULES 2.5 MG INH (21:43)
[2024-12-06 22:44] LABS: Glucose - Point of Care 176 mg/dl (70-99)
[2024-12-07] VITALS (19 sets, daily range): BP systolic 106–149; BP diastolic 73–101; PULSE 97; O2SAT 92; BMI 41.9
--- NOTE | 2024-12-07 | PTCARENOTE ---
Patient sleeping without difficulty. Atrial Fibrillation - Heart rate 100-120's. Patient with no c/o chest pain, pressure or discomfort. Assessment as documented.
[2024-12-07] MEDS: CORDARONE 103 MG IV ×3 (01:33→20:33)
[2024-12-07] MEDS: TOPROL XL 25 MG PO ×3 (01:33→09:18)
--- NOTE | 2024-12-07 02:00 | PTCARENOTE ---
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 Toprol XL 25mg PO and IV Amio bolus ordered and administered per PA order. Patient back to sleep. Assessment/Interventions as documented.
--- NOTE | 2024-12-07 02:17 | W.PN.CT ---
Today's Communication / Plan
-
Plan:
-No major issues overnight. Hemodynamically and neurologically intact
-Pt went into rapid a-fib despite being on Amiodarone gtt for PAC's. A-fib with RVR (120's) since 1 AM, has received amiodarone bolus x 2 since a-fib
-K noted to be low on AM, 3.3 will replete
-Currently on 8L midflow O2 with O2sats 91%
-Received a total of 80 mg IV Lasix yesterday
-24hr U/O 3285 mL
-Monitor Creatinine, 1.5->1.7->2.5->3.0->3.4-3.2; was 1.4-1.8 preop. Nephrology is following
-Maintain yanes catheter
-Cont. current meds (ASA, Plavix, Lipitor, Lexapro, Amiodarone, Toprol XL)
-Placed mag oxide on hold given mg of 2.4
-Maintain cordis another day
-Encourage use of IS
-Wean off of O2
-OOB into chair/Ambulate
Assessment / Plan
-
Assessment:
-s/p Median sternotomy/CABG x 4 (DARIUSZ to LAD, GSV to D1, GSV to OM1, GSV to RPDA)/Endoscopic harvest/prep of RLE GSV/Endoscopic/partial open harvest/prep of LLE GSV/ELAA (50mm AtriClip), by Dr. Cervantes, 12/04/24, pod#3
-Newly diagnosed, likely ischemic cardiomyopathy w/ LVEF 30-35% on presentation w/ acute, systolic heart failure; EF improved to 55-60% postop, per intraop ANGELA
-MVCAD including AMBULANCE OFFICER of LAD
-NIDDM (hgb A1C 7.5)
-HTN
-HLD
-MO (BMI 41.3) - SD
-Former tobacco use (currently occasional Cigar)
-Prostate CA S/P radical prostatectomy, 2018
-KERRIE (cr 1.4 -1.8 preop)
-S/P R TKA
-Acute postop blood loss/Anemia (stable without blood transfusion)
-Acute postop atelectasis
-Acute postop hypoxemia
-Acute postop hypovolemia with subsequent hypervolemia
-Acute postop KERRIE
-Acute postop hypokalemia
-Acute postop hyponatremia
-Acute postop a-fib with RVR
Discussed patient care with: Cardiology, Nursing, Respiratory Therapy, Pharmacy and Care Team
Subjective
Procedure
-s/p Median sternotomy/CABG x 4 (DARIUSZ to LAD, GSV to D1, GSV to OM1, GSV to RPDA)/Endoscopic harvest/prep of RLE GSV/Endoscopic/partial open harvest/prep of LLE GSV/ELAA (50mm AtriClip), by Dr. Cervantes, 12/04/24
-
Date of Service: December 07, 2024
Pt c/o mild incisional pain, otherwise feels well
Objective Data
-
PT 16.6 Sec (11.4-14.6) H 12/04/24 14:39
INR 1.31 12/04/24 14:39
APTT 30.1 Sec (23.4-35.0) 12/04/24 14:39
Vital Signs
Vital Signs
Temp Pulse Resp BP Pulse Ox
98.9 F 107 20 134/95 91
12/06/24 22:30 12/07/24 01:33 12/06/24 22:30 12/07/24 01:33 12/07/24 00:00
CT Intake/Output/Weight
12/06/24 12/06/24 12/07/24
06:59 18:59 06:59
Intake Total 607.4 / 989.4 470.0 / 1139.8 669.8 / 1139.8
Output Total 1010 / 2225 1385 / 2935 1550 / 2935
Balance -402.6 / -1235.6 -915.0 / -1795.2 -880.2 / -1795.2
SaO2: 91 (8L)
Physical Exam
-
General: Awake, Oriented and AOx3
Cardiovascular: Regular rate & rhythm, No Murmurs, No Rub and No Gallop
Respiratory: Decreased Breath Sounds (at bases, otherwise clear)
Sternum: Stable
Incision: Clean, Dry, Intact and Dressing Intact
Extremities: Other (+trace edema)
Data Reviewed
-
Lab Results: Results Reviewed
Medications: Active Meds Reviewed
Chest X-Ray: Report Reviewed and Image Reviewed
ECG: Report Reviewed and Image Reviewed
[2024-12-07] MEDS: TYLENOL PO (05:00)
[2024-12-07 05:30] LABS: Hematocrit 28.1 % (39.0-52.0); Hemoglobin 9.7 g/dL (13.0-18.0); Mean Corp Hgb Conc. 34.5 g/dL (33.0-37.0); Mean Corpuscular Hgb 29.2 pg (27.0-31.0); Mean Corpuscular Volume 84.6 fL (80.0-94.0); Platelet Count 198 10^3/uL (130-400); Red Blood Cell Count 3.32 10^6/uL (4.70-6.10); Red Cell Dist. Width 13.5 % (11.5-14.5); White Blood Cell Count 11.6 10^3/uL (4.8-10.8)
[2024-12-07 05:52] LABS: Blood Urea Nitrogen 64 mg/dl (9-20); Calcium 8.5 mg/dl (8.4-10.2); Carbon Dioxide 31 mmol/L (22-30); Chloride 91 mmol/L (98-107); Estimated Creatinine Clearance 29 ml/min; Glucose 167 mg/dl (70-99); Magnesium 2.4 mg/dl (1.6-2.3); Potassium 3.3 mmol/L (3.5-5.1); Sodium 131 mmol/L (135-145); eGFR 21.34
[2024-12-07] MEDS: KCL 40 MEQ PO ×3 (06:42→20:02)
[2024-12-07] MEDS: TYLENOL 1000 MG PO ×3 (06:42→22:21)
--- NOTE | 2024-12-07 06:45 | PTCARENOTE ---
Patient A+A+Ox3. No neurological deficits noted. AM lab work collected and sent. K 3.3 - 40 mEq KCL PO ordered and given. Patient assisted OOB to chair without difficulty. Standing scale weight 117.6 kg. Remains in Atrial Fibrillation.
Second Amiodarone Bolus given. Amiodarone gtt at 0.5 mg/min (16.7 ml/hr). Assessment/Interventions as documented.
[2024-12-07 07:32] LABS: Glucose - Point of Care 177 mg/dl (70-99)
--- NOTE | 2024-12-07 07:32 | PN.DE.MGMTRT ---
Insulin Management
- -
12/07/2024 Diabetes Management Consult
Patient admitted 11/26 with difficulty breathing. Had cardiac cath - CABG 12/04. PMH HTN, HCL, Prostate CA, SD, diabetes. Prior to admission was taking no medication for diabetes. A1C 7.5%.
Patient is awake alert and oriented OOB in chair, no cp or SOB. States 5 - 6 years ago had medication for diabetes but he was able to get A1C down to 5 so doctor took him off medication. States he has not been to a doctor in over 1 year. He is
very receptive to monitoring, will provide new monitor.
POD 3 s/p CABG x 4. Transitioned off of glycemic insulin protocol 12/06. Fasting glucose 167.
CR 3.2, eGFR 21.34. Patient is ordered moderate corrective insulin. Due to cr and gfr will not start oral medications. Will follow for need to start insulin.
Diabetes History
- -
Type of Diabetes: 2
Pre-Admission Diabetes Regimen
12/07/24
05:12
Creatinine 3.2 H
Lab Results
Hemoglobin A1c 7.5 % (4.0-5.6) H 11/26/24 10:07
Insulin Pump Settings
IP Diabetes Regimen
12/06/24 12/06/24 12/06/24
08:14 10:02 12:10
Glucose
POC Glucose 111 H 136 H 99
12/06/24 12/06/24 12/06/24
14:12 15:35 17:58
Glucose
POC Glucose 171 H 165 H 170 H
12/06/24 12/07/24
22:42 05:12
Glucose 167 H
POC Glucose 176 H
Meal type: Dinner
Meal type: Breakfast
Amount consumed: 75%
Amount consumed: 100%
Patient Education
[2024-12-07] MEDS: NOVOLOG FLEXPEN-MODERATE RESISTANCE 1 UNITS SC ×3 (07:39→19:02)
[2024-12-07] MEDS: PROTONIX 40 MG PO (07:41)
[2024-12-07] MEDS: SENOKOT-S 1 TABLET PO ×2 (07:41→20:03)
[2024-12-07] MEDS: NEURONTIN 100 MG PO ×3 (07:42→22:22)
[2024-12-07] MEDS: PLAVIX 75 MG PO (07:42)
[2024-12-07] MEDS: LIPITOR 40 MG PO (07:42)
[2024-12-07] MEDS: LOW STRENGTH ASPIRIN 81 MG PO (07:42)
[2024-12-07] MEDS: LEXAPRO 10 MG PO (07:42)
[2024-12-07] MEDS: VITAMIN C 500 MG PO (07:42)
[2024-12-07] MEDS: LASIX 60 MG IV (07:43)
[2024-12-07] MEDS: FEOSOL 325 MG PO (07:43)
[2024-12-07] MEDS: PACERONE 200 MG PO ×3 (07:43→22:21)
[2024-12-07] MEDS: BACTROBAN 2% OINTMENT 1 APPLIC NASAL ×2 (07:44→22:22)
[2024-12-07] MEDS: LIDOCAINE 4% PATCH 1 PATCH TOPICAL (07:44)
[2024-12-07] MEDS: KCL PO (09:18)
--- NOTE | 2024-12-07 10:27 | W.PN.CD ---
Today's Communication / Plan
-
Agree with plan
Impression / Plan
-
CAD, s/p CABG 12/04/24
-CABG x 4 (DARIUSZ to LAD, GSV to D1, GSV to OM1, GSV to RPDA)
-ELAA (50mm AtriClip)
New post-op AFib
-Rate control
-If persists then add oral anticoagulation
Ischemic Cardiomyopathy, EF 40%, with acute HFrEF => LVEF normalized by intraop ANGELA 12/04/2024
-in setting of NSTEMI
-At cath prior to CABG PCWP 26, RA 20, PA
-Adjust meds as renal fxn improves
NSVT: none on tele last 24 hrs
KERRIE, Cr peak 3.4, now 3.2
-Suspect ATN
HTN
DM2
SD on CPAP
Obesity, morbid: will benefit from weight loss moving forward
Subjective:
Incision pain controlled. No dyspea
Physical Exam
Vital Signs/Labs
Vital Signs
Temp Pulse Resp BP Pulse Ox
98.2 F 99 16 143/78 91
12/07/24 08:00 12/07/24 08:00 12/07/24 08:00 12/07/24 08:00 12/07/24 08:51
12/06/24 12/07/24 12/08/24
06:59 06:59 06:59
Actual Weight 116.6 kg 117.6 kg
12/07/24 05:12
PT 16.6 Sec (11.4-14.6) H 12/04/24 14:39
INR 1.31 12/04/24 14:39
APTT 30.1 Sec (23.4-35.0) 12/04/24 14:39
Magnesium 2.4 mg/dl (1.6-2.3) H 12/07/24 05:12
Triglycerides 110 mg/dl (10-149) 11/27/24 07:32
LDL Cholesterol, Calc 76 mg/dl 11/27/24 07:32
VLDL Cholesterol, Calc 22 mg/dl (0-30) 11/27/24 07:32
HDL Cholesterol 46 mg/dl 11/27/24 07:32
11/26/24 12/04/24
10:07 21:40
Tlv-J-Kqfqfvqyspz Pept 2860 1880
Physical Exam
Constitutional: No acute distress
Cardiovascular: Rhythm/rate is irregular and Pedal edema present (1+)
Respiratory: Respiratory effort normal and Lungs clear to auscul.
GI: Soft and Distention absent
Neuro/Psych: Alert
Data Reviewed
-
Date of Service: December 07, 2024
--- NOTE | 2024-12-07 10:35 | PTCARENOTE ---
Pt AOx4 and pleasant. Remains in Afib w/ rate in 90s. Amio gtt at 0.5. SPO2 91% on 8L midflow. OOB to bedside commode w/ assist x 1. Patel catheter discontinued at this time per orders.
--- NOTE | 2024-12-07 10:47 | W.PN.NEPH.PH ---
Today's Communication / Plan
-
agree lasix
Assessment/Plan
-
Assessment
CAD status post CABG
KERRIE related to cardiac surgery, predisposed by DKD
Probable CKD 3B
Diabetes mellitus type 2
Proteinuria
Hyperdense right renal cyst
Hypertension
Hyperlipidemia
Recovered ejection fraction
Plan
Cr 1.3 on admit
Quantify proteinuria=pcr 0.3
Follow BMP, I suspect he will plateaued 3.4
No ARB
No SGLT2i
agree w lasix today
Will need eventual CT of the abdomen for right hyperdense renal cyst
cr slight bettter 3.2
-
-
Date of Service: December 07, 2024
CC / HPI / ROS
-
Chief Complaint:
sob
History of Present Illness:
cad s/p cabg kerrie cr wnl on admit > 3.4 post CABG
Review of Systems:
no sob/cp
nonoliguric
Labs
-
Labs:
WBC 11.6 10^3/uL (4.8-10.8) H 12/07/24 05:12
RBC 3.32 10^6/uL (4.70-6.10) L 12/07/24 05:12
Hgb 9.7 g/dL (13.0-18.0) L 12/07/24 05:12
Hct 28.1 % (39.0-52.0) L 12/07/24 05:12
Plt Count 198 10^3/uL (130-400) 12/07/24 05:12
eGFR 21.34 12/07/24 05:12
Duj-Z-Fjxhctztikb Pept 1880 pg/ml 12/04/24 21:40
Albumin 4.2 g/dl (3.5-5.0) 11/28/24 04:52
Physical Exam
-
Vital Signs:
Vital Signs
Temp Pulse Resp BP Pulse Ox
98.2 F 97 16 113/73 87
12/07/24 08:00 12/07/24 10:21 12/07/24 08:00 12/07/24 10:21 12/07/24 10:15
Respiratory:: Bilateral: CTA
Lung Excursion:: Normal
Abdomen:: Soft
Bowel Sounds:: Normal
Extremity Edema:: +2: Bilateral:
--- NOTE | 2024-12-07 11:20 | CM ---
Chart reviewed. Patient OOB sitting in the chair. Patient is independent of ADLS, lives alone, 2 STH, 1STE, 0 DME. Patient with supportive daughters. Plan is for the patient to return home with CT Transitional RN. CM to follow
[2024-12-07 12:28] LABS: Glucose - Point of Care 182 mg/dl (70-99)
[2024-12-07] MEDS: LASIX 40 MG IV (14:56)
[2024-12-07] MEDS: MILK OF MAGNESIA 30 ML PO (14:56)
[2024-12-07 16:19] LABS: Blood Urea Nitrogen 68 mg/dl (9-20); Calcium 8.3 mg/dl (8.4-10.2); Carbon Dioxide 31 mmol/L (22-30); Chloride 92 mmol/L (98-107); Estimated Creatinine Clearance 30 ml/min; Glucose 168 mg/dl (70-99); Potassium 3.5 mmol/L (3.5-5.1); Sodium 133 mmol/L (135-145); eGFR 21.34
[2024-12-07] MEDS: NSS IV (17:01)
[2024-12-07 17:54] LABS: Glucose - Point of Care 154 mg/dl (70-99)
--- NOTE | 2024-12-07 18:08 | PTCARENOTE ---
Pt OOB to chair most of the day. Ambulated in room w/ therapist but felt weak/dizzy. Has been getting to bedside commode w/ assistance x 1. Feels constipated - given milk of mag but no BM produced. Is passing gas. Remains in afib w/ rate in
90s. Remains at 91% SPO2 on 8 L midflow.
[2024-12-07] MEDS: TOPROL XL 50 MG PO (20:02)
[2024-12-07] MEDS: MYLICON 80 MG PO (20:03)
[2024-12-07] MEDS: CALCIUM GLUCONATE 100 IV (20:07)
--- NOTE | 2024-12-07 20:38 | PTCARENOTE ---
Pts pox 88% on 8L midflow, o2 increased to 15L. denies sob or chest pain. no acute distress. Ed Diana LINO notified. RT in to see Pt. afib on tele. Medications given as ordered. Pt agreeable. vss. call lewis within reach.
[2024-12-07] MEDS: VENTOLIN NEBULES 2.5 MG INH (21:11)
[2024-12-07 22:13] LABS: Glucose - Point of Care 206 mg/dl (70-99)
[2024-12-07] MEDS: ROXICODONE 5 MG PO (22:21)
[2024-12-07] MEDS: CORDARONE 518 MG IV (22:56)
[2024-12-08] VITALS (18 sets, daily range): BP systolic 95–149; BP diastolic 23–95; PULSE 60–94; O2SAT 93; BMI 41.7
--- NOTE | 2024-12-08 03:27 | W.PN.CT ---
Today's Communication / Plan
-
Plan:
-No major issues overnight. Hemodynamically and neurologically intact
-Remains in a-fib x 30 hrs now, currently rate controlled @ 80-90's, on Amiodarone gtt, BB increased. Will discuss oral anticoagulation, of note pt had ELAA
-K noted to be low this AM, 3.7 will replete
-Required 15L of midflow O2 last night and this AM with O2sats 91-93%
-F/U 2-view cxr today
-Received a total of 100 mg IV Lasix yesterday
-24hr U/O 3050 mL
-Monitor Creatinine, 1.5->1.7->2.5->3.0->3.4-3.2-> 3.1; was 1.4-1.8 preop. Nephrology is following
-Voiding spontaneously following d/c of yanes yesterday 12/07
-Cont. current meds (ASA, Plavix, Lipitor, Lexapro, Amiodarone, Toprol XL)
-Placed mag oxide on hold given mg of 2.4
-Maintain cordis while on amiodarone gtt is on
-Encourage use of IS
-Wean off of O2 as tolerated
-OOB into chair/Ambulate
Assessment / Plan
-
Assessment:
-s/p Median sternotomy/CABG x 4 (DARIUSZ to LAD, GSV to D1, GSV to OM1, GSV to RPDA)/Endoscopic harvest/prep of RLE GSV/Endoscopic/partial open harvest/prep of LLE GSV/ELAA (50mm AtriClip), by Dr. Cervantes, 12/04/24, pod#4
-Newly diagnosed, likely ischemic cardiomyopathy w/ LVEF 30-35% on presentation w/ acute, systolic heart failure; EF improved to 55-60% postop, per intraop ANGELA
-MVCAD including MANAGER FORENSIC of LAD
-NIDDM (hgb A1C 7.5)
-HTN
-HLD
-MO (BMI 41.3) - SD
-Former tobacco use (currently occasional Cigar)
-Prostate CA S/P radical prostatectomy, 2018
-KERRIE (cr 1.4 -1.8 preop)
-S/P R TKA
-Acute postop blood loss/Anemia (stable without blood transfusion)
-Acute postop atelectasis
-Acute postop hypoxemia
-Acute postop hypovolemia with subsequent hypervolemia
-Acute postop KERRIE
-Acute postop hypokalemia
-Acute postop hyponatremia
-Acute postop a-fib with RVR
Discussed patient care with: Cardiology, Nursing, Respiratory Therapy, Pharmacy and Care Team
Subjective
Procedure
-s/p Median sternotomy/CABG x 4 (DARIUSZ to LAD, GSV to D1, GSV to OM1, GSV to RPDA)/Endoscopic harvest/prep of RLE GSV/Endoscopic/partial open harvest/prep of LLE GSV/ELAA (50mm AtriClip), by Dr. Cervantes, 12/04/24
-
Date of Service: December 08, 2024
Pt c/o mild incisional pain, otherwise feels well
Objective Data
-
PT 16.6 Sec (11.4-14.6) H 12/04/24 14:39
INR 1.31 12/04/24 14:39
APTT 30.1 Sec (23.4-35.0) 12/04/24 14:39
Vital Signs
Vital Signs
Temp Pulse Resp BP Pulse Ox
97.5 F 92 16 105/76 91
12/07/24 23:38 12/08/24 03:00 12/07/24 21:12 12/08/24 02:01 12/08/24 01:00
CT Intake/Output/Weight
12/07/24 12/07/24 12/08/24
06:59 18:59 06:59
Intake Total 776.6 / 1273.3 426.9 / 453.6 26.7 / 453.6
Output Total 1925 / 3460 2050 / 2800 750 / 2800
Balance -1148.4 / -2186.7 -1623.1 / -2346.4 -723.3 / -2346.4
SaO2: 91 (15L )
Physical Exam
-
General: Awake, Oriented and AOx3
Cardiovascular: Irregular rate & rhythm (a-fib), No Murmurs, No Rub and No Gallop
Respiratory: Decreased Breath Sounds (at bases)
Sternum: Stable
Incision: Clean, Dry, Intact and Dressing Intact
Extremities: Other (+trace edema)
Data Reviewed
-
Lab Results: Results Reviewed
Medications: Active Meds Reviewed
Chest X-Ray: Report Reviewed and Image Reviewed
ECG: Report Reviewed and Image Reviewed
[2024-12-08 04:12] LABS: Hematocrit 28.9 % (39.0-52.0); Hemoglobin 10.1 g/dL (13.0-18.0); Mean Corp Hgb Conc. 34.9 g/dL (33.0-37.0); Mean Corpuscular Hgb 29.4 pg (27.0-31.0); Mean Platelet Volume 10.7 fL (7.4-10.4); Platelet Count 258 10^3/uL (130-400); Red Blood Cell Count 3.44 10^6/uL (4.70-6.10); Red Cell Dist. Width 13.6 % (11.5-14.5); White Blood Cell Count 10.3 10^3/uL (4.8-10.8)
[2024-12-08 04:29] LABS: Blood Urea Nitrogen 69 mg/dl (9-20); Calcium 8.9 mg/dl (8.4-10.2); Carbon Dioxide 31 mmol/L (22-30); Chloride 91 mmol/L (98-107); Estimated Creatinine Clearance 31 ml/min; Glucose 178 mg/dl (70-99); Magnesium 2.5 mg/dl (1.6-2.3); Potassium 3.7 mmol/L (3.5-5.1); Sodium 132 mmol/L (135-145); eGFR 22.17
[2024-12-08] MEDS: TYLENOL 1000 MG PO ×3 (05:33→22:21)
[2024-12-08] MEDS: KCL 40 MEQ PO ×2 (05:33→22:31)
--- NOTE | 2024-12-08 05:38 | PTCARENOTE ---
VSS> labs drawn and sent. standing scale weight obtained. patient steady on feet. remains in AFIB. HR 90s. AMio gtt infusing at ordered rate. no additional changes in assessment from prior.
--- NOTE | 2024-12-08 07:40 | PN.DE.MGMTRT ---
Insulin Management
- -
12/08/2024 Diabetes Management Consult Follow up
Patient admitted 11/26 with difficulty breathing. Had cardiac cath - CABG 12/04. PMH HTN, HCL, Prostate CA, SD, diabetes. Prior to admission was taking no medication for diabetes. A1C 7.5%.
Patient is awake alert and oriented OOB in chair, no cp or SOB. States 5 - 6 years ago had medication for diabetes but he was able to get A1C down to 5 so doctor took him off medication. States he has not been to a doctor in over 1 year. He is
very receptive to monitoring, will provide new monitor.
POD 4 s/p CABG x 4. Transitioned off of glycemic insulin protocol 12/06. Fasting glucose 167.
CR 3.1, eGFR 22.17. Patient is ordered moderate corrective insulin. Due to cr and gfr will not start oral medications. HS glucose 206. Will discuss with patient food choices and decreasing CHO intake. Will start 10 units lantus in AM, first
dose now.
Discussed with nurse
Will follow.
Diabetes History
- -
Type of Diabetes: 2
Pre-Admission Diabetes Regimen
12/07/24 12/08/24
15:59 03:51
Creatinine 3.2 H 3.1 H
Lab Results
Hemoglobin A1c 7.5 % (4.0-5.6) H 11/26/24 10:07
Insulin Pump Settings
IP Diabetes Regimen
12/07/24 12/07/24 12/07/24
12:26 15:59 17:53
Glucose 168 H
POC Glucose 182 H 154 H
12/07/24 12/08/24
22:12 03:51
Glucose 178 H
POC Glucose 206 H
Meal type: Breakfast
Amount consumed: 90%
Patient Education
[2024-12-08 08:00] LABS: Glucose - Point of Care 199 mg/dl (70-99)
[2024-12-08] MEDS: NEURONTIN 100 MG PO ×3 (08:11→22:21)
[2024-12-08] MEDS: SENOKOT-S 1 TABLET PO ×2 (08:11→22:21)
[2024-12-08] MEDS: PACERONE 200 MG PO ×3 (08:11→22:31)
[2024-12-08] MEDS: PROTONIX 40 MG PO (08:11)
[2024-12-08] MEDS: VITAMIN C 500 MG PO (08:11)
[2024-12-08] MEDS: DIAMOX 250 MG PO (08:11)
[2024-12-08] MEDS: NOVOLOG FLEXPEN-MODERATE RESISTANCE 1 UNITS SC ×3 (08:12→17:27)
[2024-12-08] MEDS: LEXAPRO 10 MG PO (08:12)
[2024-12-08] MEDS: LIPITOR 40 MG PO (08:12)
[2024-12-08] MEDS: LOW STRENGTH ASPIRIN 81 MG PO (08:12)
[2024-12-08] MEDS: PLAVIX 75 MG PO (08:12)
[2024-12-08] MEDS: TOPROL XL 50 MG PO (08:12)
[2024-12-08] MEDS: DULCOLAX 10 MG PO ×2 (08:12→22:32)
[2024-12-08] MEDS: FEOSOL 325 MG PO (08:12)
[2024-12-08] MEDS: BACTROBAN 2% OINTMENT 1 APPLIC NASAL (08:13)
[2024-12-08] MEDS: LIDOCAINE 4% PATCH TOPICAL (08:14)
[2024-12-08] MEDS: LANTUS 0.1 UNITS SC (08:39)
--- NOTE | 2024-12-08 09:15 | W.PN.CD ---
Today's Communication / Plan
-
cont IV amiodarone
recommend ASA/eliquis, and stop Plavix
trend tele
trend Cr
Impression / Plan
-
CAD, s/p CABG 12/04/24
-CABG x 4 (DARIUSZ to LAD, GSV to D1, GSV to OM1, GSV to RPDA)
-ELAA (50mm AtriClip)
-ASA 81mg
New post-op AFib: paroxysmal
-back in A fib
-continue IV amiodarone
-high risk med, requires monitoring of tele
-cont Toprol XL
-CHADS2-VASC = 4. Add eliquis 5mg bid for OAC.
Post op KERRIE
-per nephrology, Cr now 3.1, down from peak of 3.4
Ischemic Cardiomyopathy, EF 40%, with acute HFrEF => LVEF improved to 55-60% on intraop ANGELA 12/04/2024
-suspect troponin elevation on admit (0.1) was acute non-ischemic myocardial injury in setting of acute HF
-cont Toprol XL 50mg bid
-GDMT limited by renal function
-diuresis guided by nephrology in setting of KERRIE, with close monitoring of labs
NSVT: none on tele last 24 hrs, cont Toprol XL
HTN: monitor on Toprol XL
DM2
SD on CPAP
Obesity, morbid: will benefit from weight loss moving forward
Physical Exam
Vital Signs/Labs
Vital Signs
Temp Pulse Resp BP Pulse Ox
98.2 F 75 18 149/79 92
12/08/24 08:00 12/08/24 08:00 12/08/24 04:00 12/08/24 08:00 12/08/24 08:00
12/07/24 12/08/24 12/09/24
06:59 06:59 06:59
Actual Weight 117.6 kg 117.1 kg
12/08/24 03:51
12/08/24 03:51
PT 16.6 Sec (11.4-14.6) H 12/04/24 14:39
INR 1.31 12/04/24 14:39
APTT 30.1 Sec (23.4-35.0) 12/04/24 14:39
Magnesium 2.5 mg/dl (1.6-2.3) H 12/08/24 03:51
Triglycerides 110 mg/dl (10-149) 11/27/24 07:32
LDL Cholesterol, Calc 76 mg/dl 11/27/24 07:32
VLDL Cholesterol, Calc 22 mg/dl (0-30) 11/27/24 07:32
HDL Cholesterol 46 mg/dl 11/27/24 07:32
11/26/24 12/04/24
10:07 21:40
Hzp-U-Vzzspnfaaav Pept 2860 1880
Physical Exam
Constitutional: No acute distress
EENT: Moist mucous membranes
Cardiovascular: Systolic murmur absent, Rhythm/rate is irregular, Pedal edema present and JVD present
Respiratory: Respiratory effort normal
Neuro/Psych: AO x 3
Data Reviewed
-
Date of Service: December 08, 2024
EKG: Other (Tele: in/out A fib)
Labs: Labs Reviewed by me
[2024-12-08] MEDS: ELIQUIS 5 MG PO ×2 (09:39→22:21)
--- NOTE | 2024-12-08 11:18 | CM ---
Chart reviewed. Patient is independent of ADLS, lives alone in a 2 STH, 1 CLAUDIA, 0 DME. Patient said his brother or CYNTHIA will be staying with him for a little while when he is medically stable for discharge. Plan is for the patient to return home
with CT Transitional RN. CM to follow
--- NOTE | 2024-12-08 12:08 | W.PN.NEPH.PH ---
Today's Communication / Plan
-
BMP
Assessment/Plan
-
Assessment
CAD status post CABG
KERRIE related to cardiac surgery, predisposed by DKD
Probable CKD 3B
Diabetes mellitus type 2
Proteinuria
Hyperdense right renal cyst
Hypertension
Hyperlipidemia
Recovered ejection fraction
Plan
Cr 1.3 on admit
Quantify proteinuria=pcr 0.3
Follow BMP, I suspect he will plateaued 3.4
No ARB
No SGLT2i
agree w lasix today
Will need eventual CT of the abdomen for right hyperdense renal cyst
Patel out 11/06
Remains nonoliguric
diuretics as needed/last dose 60 mg Lasix 12/07
cr slight bettter 3.2 >3.1
-
-
Date of Service: December 08, 2024
CC / HPI / ROS
-
Chief Complaint:
sob
History of Present Illness:
cad s/p cabg kerrie cr wnl on admit > 3.4 post CABG
Review of Systems:
no sob/cp
nonoliguric
Labs
-
Labs:
WBC 10.3 10^3/uL (4.8-10.8) 12/08/24 03:51
RBC 3.44 10^6/uL (4.70-6.10) L 12/08/24 03:51
Hgb 10.1 g/dL (13.0-18.0) L 12/08/24 03:51
Hct 28.9 % (39.0-52.0) L 12/08/24 03:51
Plt Count 258 10^3/uL (130-400) D 12/08/24 03:51
Sodium 132 mmol/L (135-145) L 12/08/24 03:51
Potassium 3.7 mmol/L (3.5-5.1) 12/08/24 03:51
Chloride 91 mmol/L (98-107) L 12/08/24 03:51
Carbon Dioxide 31 mmol/L (22-30) H 12/08/24 03:51
BUN 69 mg/dl (9-20) H 12/08/24 03:51
Creatinine 3.1 mg/dL (0.7-1.3) H 12/08/24 03:51
eGFR 22.17 12/08/24 03:51
Glucose 178 mg/dl (70-99) H 12/08/24 03:51
Calcium 8.9 mg/dl (8.4-10.2) 12/08/24 03:51
Wnb-I-Lwscvwfotax Pept 1880 pg/ml 12/04/24 21:40
Albumin 4.2 g/dl (3.5-5.0) 11/28/24 04:52
Physical Exam
-
Vital Signs:
Vital Signs
Temp Pulse Resp BP Pulse Ox
98.2 F 75 18 149/79 92
12/08/24 08:00 12/08/24 08:00 12/08/24 04:00 12/08/24 08:00 12/08/24 09:42
Respiratory:: Bilateral: CTA
Lung Excursion:: Normal
Abdomen:: Soft
Bowel Sounds:: Normal
Extremity Edema:: +2: Bilateral:
[2024-12-08 12:12] LABS: Glucose - Point of Care 198 mg/dl (70-99)
--- NOTE | 2024-12-08 12:23 | PTCARENOTE ---
Pt reports feeling good today. Pain tolerable. O2 weaned to 6L NC. Encouraged I/S. Remains on amiodarone gtt. Converted to Sinus rhythm with frequent PACs around 0730 this am then back to Afib after ambulating to the toilet at 0850. Continues
to report constipation. Received Senokot-S and Dulcolax per order. Educated on new medications, Apixaban and Insulin.
--- NOTE | 2024-12-08 13:54 | PTCARENOTE ---
12/08/2024 DIABETES EDUCATION
I met with Mr. Herman review diabetes management, had CABG. In the past, states his HbA1c was in the 6% range. Was previously on insulin, and has not had his A1c checked in years nor has been on medications.
I educated on physiology of T2D, managing with medications, monitoring BG, nutrition, activity, sleep and managing stress.
He has a glucometer at home, has not checked his glucose since late 2023. I provided a sample glucometer and reviewed demonstration proper set up and use of glucometer. He acknowledged understanding with a successful repeat demonstration.
I educated and demonstrated on insulin injection technique, timing, and storage. Discussed long and short acting insulin; onset/peak/duration, and encouraged him to administer his own injections with RN supervision while admitted.
Discussed normal target glucose ranges and a monitoring schedule as indicated in discharge instructions and per PCP after discharge. I reinforced signs of hyperglycemia, hypoglycemia; BS parameters and recommended HbA1c goals, written material
provided. Encouraged patient to follow up with his PCP for post d/c appointment and to monitor medication and blood glucose levels. Provided list of endocrinologists for reference, and to contact insurance company to verify in network status.
Information provided on the outpatient DSME program. Patient verbalized understanding.
[2024-12-08] MEDS: NSS IV (14:06)
[2024-12-08 17:28] LABS: Glucose - Point of Care 164 mg/dl (70-99)
--- NOTE | 2024-12-08 18:07 | PTCARENOTE ---
Ambulated to end of hernández and back. Reported feeling slightly lightheaded and SOB. Sinus rhythm with PAC [id number] then back in Afib. Remains on Amiodarone gtt. O2 weaned to 4L NC. SpO2 92-95%
[2024-12-08] MEDS: TOPROL XL 25 MG PO (22:38)
[2024-12-08] MEDS: TOPROL XL PO (23:12)
--- NOTE | 2024-12-08 23:15 | PTCARENOTE ---
Report received from SOILA Donovan. Pt assessed and VS done (see flowsheet). Helped into BR to void clear, yellow urine and attempt BM without success. Pt helped back to bed. Pt neuro intact, awake, alert, oriented x 4. Generalized weakness. Equal
strength x 4. Pt on 2L/midflow. Sats 90-92%. O2 increased to 4 L/Midflow/O2. BBS present. Decreased to B bases. CDB and IS encouraged.
Pt on AF, Amio gtt at 0.5 mg/min. Pt converted to SR at 2256, rate 50-60's. PA aware. Toprol XL 25 mg po given per order. See VS flowsheet for BP. For pulse and wound assessments, see flowsheets. Belly soft, obese, nontender, slightly firm. Passing
flatus. Normoactive bs x 4. PA in to see pt. Dulcolax 10 mg ordered and given. Pt given CHG bath. Dressing change to old CT sites done. Placed on CPAP at 2335, 5L. Evening glucose 147. Ongoing plan of care.
[2024-12-08 23:27] LABS: Glucose - Point of Care 147 mg/dl (70-99)
[2024-12-09] VITALS (13 sets, daily range): BP systolic 110–129; BP diastolic 52–90; PULSE 54–63; O2SAT 91–93; BMI 41.9
[2024-12-09] MEDS: CORDARONE 518 MG IV (00:53)
--- NOTE | 2024-12-09 03:49 | W.PN.CT ---
Today's Communication / Plan
-
Plan:
-No major issues overnight. Hemodynamically and neurologically intact
-Converted to NSR @ last night ~ 2250. Was in A-fib since POD#3 and 4. Started on Eliquis yesterday. Plavix d/c'd
-D/C'd Amiodarone gtt this AM, Toprol xl changed to home dose of 50 mg QDaily. Cont. PO Amiodarone
-D/C cordis
-Will give MOM for constipation. Already received Senokot, Dulcolax
-K noted to be low this AM, 3.4 will replete
-Oxygenation has improved, now on 4L NC, with O2sats 91-95%
-Wean off of O2 as tolerated
-Encourage use of IS
-F/U left basilar opacification from 2-view cxr yesterday, will repeat x-ray today, as pt was working diligently with IS last night
-Received Diamox yesterday, 24hr U/O 1100 mL
-Voiding spontaneously following d/c of yanes 12/07
-Monitor Creatinine, 1.5->1.7->2.5->3.0->3.4-3.2-> 3.1->3.2; was 1.4-1.8 preop. Nephrology is following
-Cont. current meds (ASA, Eliquis, Lipitor, Lexapro, Amiodarone, Toprol XL)
-Placed mag oxide on hold given mg of 2.5
-OOB into chair/Ambulate
-Okay to transfer to IVU
Assessment / Plan
-
Assessment:
-s/p Median sternotomy/CABG x 4 (DARIUSZ to LAD, GSV to D1, GSV to OM1, GSV to RPDA)/Endoscopic harvest/prep of RLE GSV/Endoscopic/partial open harvest/prep of LLE GSV/ELAA (50mm AtriClip), by Dr. Cervantes, 12/04/24, pod#5
-Newly diagnosed, likely ischemic cardiomyopathy w/ LVEF 30-35% on presentation w/ acute, systolic heart failure; EF improved to 55-60% postop, per intraop ANGELA
-MVCAD including SPORTS EDITOR of LAD
-NIDDM (hgb A1C 7.5)
-HTN
-HLD
-MO (BMI 41.3) - SD
-Former tobacco use (currently occasional Cigar)
-Prostate CA S/P radical prostatectomy, 2018
-KERRIE (cr 1.4 -1.8 preop)
-S/P R TKA
-Acute postop blood loss/Anemia (stable without blood transfusion)
-Acute postop atelectasis
-Acute postop hypoxemia
-Acute postop hypovolemia with subsequent hypervolemia
-Acute postop KERRIE
-Acute postop hypokalemia
-Acute postop hyponatremia
-Acute postop a-fib with RVR
Discussed patient care with: Cardiology, Nursing, Respiratory Therapy, Pharmacy and Care Team
Subjective
Procedure
-s/p Median sternotomy/CABG x 4 (DARIUSZ to LAD, GSV to D1, GSV to OM1, GSV to RPDA)/Endoscopic harvest/prep of RLE GSV/Endoscopic/partial open harvest/prep of LLE GSV/ELAA (50mm AtriClip), by Dr. Cervantes, 12/04/24
-
Date of Service: December 09, 2024
Pt c/o mild incisional pain and constipation, otherwise feels well. Ambulating halls without difficulty
Objective Data
-
Lab Results
12/08/24 03:51
PT 16.6 Sec (11.4-14.6) H 12/04/24 14:39
INR 1.31 12/04/24 14:39
APTT 30.1 Sec (23.4-35.0) 12/04/24 14:39
Vital Signs
Vital Signs
Temp Pulse Resp BP Pulse Ox
98.3 F 56 16 121/79 95
12/08/24 23:08 12/09/24 03:00 12/08/24 23:08 12/08/24 23:08 12/09/24 03:00
CT Intake/Output/Weight
12/08/24 12/08/24 12/09/24
06:59 18:59 06:59
Intake Total 26.7 / 453.6 480 / 613.5 133.5 / 613.5
Output Total 750 / 2800 450 / 1100 650 / 1100
Balance -723.3 / -2346.4 30 / -486.5 -516.5 / -486.5
SaO2: 95 (4L)
Physical Exam
-
General: Awake, Oriented and AOx3
Cardiovascular: Regular rate & rhythm, No Murmurs, No Rub and No Gallop
Respiratory: Decreased Breath Sounds (at bases, otherwise clear)
Sternum: Stable
Incision: Clean, Dry, Intact and Dressing Intact
Extremities: Other (trace edema)
Data Reviewed
-
Lab Results: Results Reviewed
Medications: Active Meds Reviewed
Chest X-Ray: Report Reviewed and Image Reviewed
ECG: Report Reviewed and Image Reviewed
--- NOTE | 2024-12-09 04:15 | PTCARENOTE ---
Labs drawn and sent. VS recorded. Pt remains in SB-SR. CPAP 5L/O2. sats 94-95%. Pt awakens briefly and approipriately, then continues to sleep after labs drawn.
[2024-12-09 04:58] LABS: ALT (SGPT) 15 U/L (0-50); AST (SGOT) 28 U/L (17-59); Albumin 3.1 g/dl (3.5-5.0); Alkaline Phosphatase 67 U/L (38-126); Blood Urea Nitrogen 61 mg/dl (9-20); Calcium 8.4 mg/dl (8.4-10.2); Carbon Dioxide 31 mmol/L (22-30); Chloride 91 mmol/L (98-107); Estimated Creatinine Clearance 30 ml/min; Glucose 207 mg/dl (70-99); Magnesium 2.5 mg/dl (1.6-2.3); Potassium 3.4 mmol/L (3.5-5.1); Sodium 131 mmol/L (135-145); Total Bilirubin 0.7 mg/dl (0.2-1.3); Total Protein 5.3 g/dl (6.3-8.2); eGFR 21.34
--- NOTE | 2024-12-09 05:00 | PTCARENOTE ---
Helped to BR to void 400 mls clear, yellow urine. No BM. Passing flatus. Weighed on standing scale. Helped back to bed.
--- NOTE | 2024-12-09 06:00 | PTCARENOTE ---
Myriam gtt d/c'ed per provider order/ Pt in SB-SR.
--- NOTE | 2024-12-09 07:23 | PN.DE.MGMTRT ---
Addendum entered and electronically signed by Salome Ness NP 12/09/24 08:13:
Nurse rechecked POC glucose, 139. Will not give 8 units lantus @ HS, suggest small snack at HS. Will check 3AM glucose.
Original Note:
Insulin Management
- -
12/09/2024 Diabetes Management Consult Follow up
Patient admitted 11/26 with difficulty breathing. Had cardiac cath - CABG 12/04. PMH HTN, HCL, Prostate CA, SD, diabetes. Prior to admission was taking no medication for diabetes. A1C 7.5%.
Patient is awake alert and oriented OOB in chair, no cp or SOB. States 5 - 6 years ago had medication for diabetes but he was able to get A1C down to 5 so doctor took him off medication. States he has not been to a doctor in over 1 year. He is
very receptive to monitoring, will provide new monitor.
POD 5 s/p CABG x 4. Transitioned off of glycemic insulin protocol 12/06.
CR 3.2, eGFR 21.34. 10 units lantus in AM started 12/08, HS glucose 147. Fasting glucose today 207. Will continue AM lantus 10 units and add lantus 8 units @ HS.
Compressor Stations Superintendent, Annette CM, [facility], has educated patient on insulin administration, provided new meter. Patient to self administer all injections with nursing supervision.
Discussed with nurse
Will follow.
Diabetes History
- -
Type of Diabetes: 2
Pre-Admission Diabetes Regimen
12/09/24
04:22
Creatinine 3.2 H
Lab Results
Hemoglobin A1c 7.5 % (4.0-5.6) H 11/26/24 10:07
Insulin Pump Settings
IP Diabetes Regimen
12/08/24 12/08/24 12/08/24
07:58 12:05 17:26
Glucose
POC Glucose 199 H 198 H 164 H
04/15/25 04/16/25
23:26 04:22
Glucose 207 H
POC Glucose 147 H
Meal type: Breakfast
Amount consumed: 80%
Patient Education
--- NOTE | 2024-12-09 07:30 | PTCARENOTE ---
TYLRE gray d/c'ed per CVICU protocol. Report given to SOILA Nick in IVU. Pt transferred. Handoff report/signoff completed with monitor. Dr. Sosa and DENVER Goldsmith at bedside to see pt this am.
[2024-12-09] MEDS: KCL 40 MEQ PO ×2 (07:33→11:13)
[2024-12-09] MEDS: TYLENOL 1000 MG PO ×3 (07:33→22:12)
[2024-12-09] MEDS: LOW STRENGTH ASPIRIN 81 MG PO (07:48)
[2024-12-09] MEDS: SENOKOT-S 1 TABLET PO ×2 (07:49→19:46)
[2024-12-09] MEDS: PACERONE 200 MG PO ×3 (07:49→22:12)
[2024-12-09] MEDS: LIPITOR 40 MG PO (07:49)
[2024-12-09] MEDS: PROTONIX 40 MG PO (07:49)
[2024-12-09] MEDS: LEXAPRO 10 MG PO (07:49)
[2024-12-09] MEDS: FEOSOL 325 MG PO (07:50)
[2024-12-09] MEDS: ELIQUIS 5 MG PO ×2 (07:50→19:46)
[2024-12-09] MEDS: LIDOCAINE 4% PATCH TOPICAL (07:50)
[2024-12-09] MEDS: VITAMIN C 500 MG PO (07:50)
[2024-12-09] MEDS: NEURONTIN 100 MG PO ×3 (07:50→22:12)
[2024-12-09 08:10] LABS: Glucose - Point of Care 139 mg/dl (70-99)
[2024-12-09] MEDS: MIRALAX 17 GRAMS PO (08:10)
[2024-12-09] MEDS: NOVOLOG FLEXPEN-MODERATE RESISTANCE SC ×2 (08:10→17:22)
[2024-12-09] MEDS: TOPROL XL 50 MG PO (09:39)
[2024-12-09] MEDS: LANTUS 0.1 UNITS SC (09:39)
--- NOTE | 2024-12-09 10:11 | W.PN.CD ---
Today's Communication / Plan
-
Wonder if he may have cardiorenal syndrome. Consider diuresis.
Will discuss with nephrology
Impression / Plan
-
CAD, s/p CABG 12/04/24
-CABG x 4 (DARIUSZ to LAD, GSV to D1, GSV to OM1, GSV to RPDA)
-ELAA (50mm AtriClip)
-ASA 81mg
New post-op AFib: paroxysmal
-back in NSR
-continue p.o. amiodarone
-cont Toprol XL
-CHADS2-VASC = 4. Add eliquis 5mg bid for OAC.
Post op KERRIE
-Cr now 3.2, has been stable for several days. Creatinine 1.3 on admission
-Examines volume up. Consider diuresis. Will defer to nephrology.
Ischemic Cardiomyopathy, EF 40%, with acute HFrEF => LVEF improved to 55-60% on intraop ANGELA 12/04/2024
-suspect troponin elevation on admit (0.1) was acute non-ischemic myocardial injury in setting of acute HF
-cont Toprol XL 50mg bid
-GDMT limited by renal function
-diuresis guided by nephrology in setting of KERRIE, with close monitoring of labs
NSVT: none on tele last 24 hrs, cont Toprol XL
HTN: monitor on Toprol XL
DM2
SD on CPAP
Obesity, morbid: will benefit from weight loss moving forward
Subjective: Feels puffy in arms and legs. No other cardiovascular complaints. In sinus rhythm on telemetry.
Physical Exam
Vital Signs/Labs
Vital Signs
Temp Pulse Resp BP Pulse Ox
97.7 F 61 20 128/81 94
12/09/24 08:51 12/09/24 09:39 12/09/24 08:51 12/09/24 09:39 12/09/24 08:51
12/08/24 12/09/24 12/10/24
06:59 06:59 06:59
Actual Weight 258 lb 2.581 oz 259 lb 4.218 oz
12/08/24 03:51
12/09/24 04:22
PT 16.6 Sec (11.4-14.6) H 12/04/24 14:39
INR 1.31 12/04/24 14:39
APTT 30.1 Sec (23.4-35.0) 12/04/24 14:39
Magnesium 2.5 mg/dl (1.6-2.3) H 12/09/24 04:22
Triglycerides 110 mg/dl (10-149) 11/27/24 07:32
LDL Cholesterol, Calc 76 mg/dl 11/27/24 07:32
VLDL Cholesterol, Calc 22 mg/dl (0-30) 11/27/24 07:32
HDL Cholesterol 46 mg/dl 11/27/24 07:32
11/26/24 12/04/24
10:07 21:40
Xgl-F-Xgdohkvrfmn Pept 2860 1880
Physical Exam
Constitutional: No acute distress and Comfortable
Cardiovascular: Rhythm & rate is regular, Pedal edema present, S1S2 is normal and Murmur/rub/gallop absent
Respiratory: Respiratory effort normal and Lungs clear to auscul.
Neuro/Psych: AO x 3
Data Reviewed
-
Date of Service: December 09, 2024
Medical Decision Making: Reviewed Test Results, Independent Historian Assessment, Test Interpretation and Review of Case with other Provider
EKG: Tracing Personally Visualized and interpreted
Echo: Report Reviewed by me
Labs: Labs Reviewed by me
--- NOTE | 2024-12-09 10:44 | W.PN.NEPH.PH ---
Today's Communication / Plan
-
lasix 80
Assessment/Plan
-
Assessment
CAD status post CABG
KERRIE related to cardiac surgery, predisposed by DKD
Probable CKD 3B
Diabetes mellitus type 2
Proteinuria
Hyperdense right renal cyst
Hypertension
Hyperlipidemia
Recovered ejection fraction
Plan
Cr 1.3 on admit
Quantify proteinuria=pcr 0.3
No ARB
No SGLT2i
Will need eventual CT of the abdomen for right hyperdense renal cyst
Patel out 11/06
Remains nonoliguric
diuretics as needed/last dose 60 mg Lasix 12/07
cr slight bettter 3.2 >3.1
redose lasix 80 x 1.
d/w primary hosp and nurse and CT
-
-
Date of Service: December 09, 2024
CC / HPI / ROS
-
Chief Complaint:
sob
History of Present Illness:
cad s/p cabg kerrie cr wnl on admit > 3.4 post CABG
Review of Systems:
no sob/cp
nonoliguric
Labs
-
Labs:
WBC 10.3 10^3/uL (4.8-10.8) 12/08/24 03:51
RBC 3.44 10^6/uL (4.70-6.10) L 12/08/24 03:51
Hgb 10.1 g/dL (13.0-18.0) L 12/08/24 03:51
Hct 28.9 % (39.0-52.0) L 12/08/24 03:51
Plt Count 258 10^3/uL (130-400) D 12/08/24 03:51
Sodium 131 mmol/L (135-145) L 12/09/24 04:22
Potassium 3.4 mmol/L (3.5-5.1) L 12/09/24 04:22
Chloride 91 mmol/L (98-107) L 12/09/24 04:22
Carbon Dioxide 31 mmol/L (22-30) H 12/09/24 04:22
BUN 61 mg/dl (9-20) H 12/09/24 04:22
Creatinine 3.2 mg/dL (0.7-1.3) H 12/09/24 04:22
eGFR 21.34 12/09/24 04:22
Glucose 207 mg/dl (70-99) H 12/09/24 04:22
Calcium 8.4 mg/dl (8.4-10.2) 12/09/24 04:22
Shq-I-Svbhjauvatx Pept 1880 pg/ml 12/04/24 21:40
Albumin 3.1 g/dl (3.5-5.0) L 12/09/24 04:22
Physical Exam
-
Vital Signs:
Vital Signs
Temp Pulse Resp BP Pulse Ox
97.7 F 61 20 128/81 94
12/09/24 08:51 12/09/24 09:39 12/09/24 08:51 12/09/24 09:39 12/09/24 08:51
Respiratory:: Bilateral: CTA
Lung Excursion:: Normal
Abdomen:: Soft
Bowel Sounds:: Normal
Extremity Edema:: +2: Bilateral:
[2024-12-09] MEDS: LASIX 80 MG IV (11:14)
--- NOTE | 2024-12-09 11:35 | PTCARENOTE ---
Pt is AOx3, no complaints of pain or discomfort. SB/SR on tele monitor, VSS. Independent OOB. Weaning O2, 94% on 1L O2. Sternal precautions maintained. Updated on plane of care. Call lewis within reach.
--- NOTE | 2024-12-09 11:55 | CM ---
Reviewed chart. Mr. Herman was transferred to IVU. Met with Mr. Herman to review discharge plans. He states he he is feeling well. He states prior to admission he resdies alone in a two story house without any steps to enter. He states he has
a full flight of steps to get to bedroom/full bathroom. Prior to admission he was independent with ambulation and adls. He states he does not have any DME in the home. He states he does not have a prescription plan with his insurance. Reviewed
with the [facility]aranjo [facility] for Eliquis. He is aware of [facility] for some of his scripts. Placed the one month free coupon in his red discharge folder. Reviewed patient assistance program with him. Gave him the paperwork to complete. He is currently on
one liter of 02. Watching for home 02 needs. Reviewed a home visit by the Transitional Care Nurse. He is agreeable to a home visit. He states his brother and sister-in -law and his children will be stopping by to check by on them. He also states
he has friends that can also check on him. Medical work-up in progress. The discharge plan is to return home with family and friends support and a home visit by the Transitional Care Nurse when medically stable.
[2024-12-09 12:32] LABS: Glucose - Point of Care 187 mg/dl (70-99)
[2024-12-09] MEDS: NSS IV (12:47)
--- NOTE | 2024-12-09 13:02 | PTCARENOTE ---
Pt used bathroom call debbie RN answered and found pt sitting on floor. States 'I got up from the toilet and then fell and hit my back and shoulders'. VSS. Reports no LOC or hitting his head. Rupal Segal NP, made aware and came to see pt at
bedside. Will continue to monitor.
[2024-12-09] MEDS: NOVOLOG FLEXPEN-MODERATE RESISTANCE 1 UNITS SC (13:06)
[2024-12-09] MEDS: ROXICODONE 2.5 MG PO (16:51)
[2024-12-09 17:09] LABS: Glucose - Point of Care 119 mg/dl (70-99)
[2024-12-09 18:14] LABS: Blood Urea Nitrogen 65 mg/dl (9-20); Calcium 8.8 mg/dl (8.4-10.2); Carbon Dioxide 32 mmol/L (22-30); Chloride 91 mmol/L (98-107); Estimated Creatinine Clearance 28 ml/min; Glucose 106 mg/dl (70-99); Potassium 3.7 mmol/L (3.5-5.1); Sodium 134 mmol/L (135-145); eGFR 19.84
[2024-12-09 21:57] LABS: Glucose - Point of Care 161 mg/dl (70-99)
[2024-12-09] MEDS: ROXICODONE 5 MG PO (22:20)
[2024-12-10] VITALS (8 sets, daily range): BP systolic 123–138; BP diastolic 80–98; PULSE 57; BMI 41.6
--- NOTE | 2024-12-10 00:07 | PTCARENOTE ---
Pt. OOB to chair and ambulating frequently this shift (gait steady), VSS, NSR-SB (50's) on the monitor. Complaining of bilateral groin and upper leg pain (B/L groin punctures present with diffuse ecchymosis, no drainage, B/L leg incisions
approximated without drainage) - medicated with oxycodone and Tylenol, warm compresses provided per CV-PA Tsilina, pt. expressed much relief. Voiding without difficulty. Pt. currently sleeping.
[2024-12-10 02:54] LABS: Glucose - Point of Care 194 mg/dl (70-99)
[2024-12-10 03:33] LABS: Hematocrit 26.5 % (39.0-52.0); Hemoglobin 9.1 g/dL (13.0-18.0); Mean Corp Hgb Conc. 34.3 g/dL (33.0-37.0); Mean Corpuscular Hgb 29.4 pg (27.0-31.0); Mean Corpuscular Volume 85.5 fL (80.0-94.0); Mean Platelet Volume 10.6 fL (7.4-10.4); Platelet Count 306 10^3/uL (130-400); Red Cell Dist. Width 13.5 % (11.5-14.5); White Blood Cell Count 8.7 10^3/uL (4.8-10.8)
[2024-12-10 04:01] LABS: Blood Urea Nitrogen 66 mg/dl (9-20); Calcium 8.8 mg/dl (8.4-10.2); Carbon Dioxide 33 mmol/L (22-30); Chloride 92 mmol/L (98-107); Estimated Creatinine Clearance 28 ml/min; Glucose 155 mg/dl (70-99); Potassium 3.7 mmol/L (3.5-5.1); Sodium 135 mmol/L (135-145); eGFR 19.84
[2024-12-10] MEDS: TYLENOL 1000 MG PO ×3 (06:15→22:16)
[2024-12-10 07:52] LABS: Glucose - Point of Care 106 mg/dl (70-99)
--- NOTE | 2024-12-10 07:56 | PN.DE.MGMTRT ---
Insulin Management
- -
12/10/2024 Diabetes Management Consult Follow up
Patient admitted 11/26 with difficulty breathing. Had cardiac cath - CABG 12/04. PMH HTN, HCL, Prostate CA, SD, diabetes. Prior to admission was taking no medication for diabetes. A1C 7.5%.
Patient is awake alert and oriented OOB in chair, no cp or SOB. States 5 - 6 years ago had medication for diabetes but he was able to get A1C down to 5 so doctor took him off medication. States he has not been to a doctor in over 1 year. He is
very receptive to monitoring, will provide new monitor.
POD 6 s/p CABG x 4. Transitioned off of glycemic insulin protocol 12/06.
CR 3.4, eGFR 19.84. Will not start oral meds due to cr. Glucose range 12/09 106 to 187, HS glucose 147. Fasting glucose today 106. Will continue AM lantus 10 units with moderate corrective insulin.
Pigs Feet Finisher, Annette CM, [facility], has educated patient on insulin administration, provided new meter. Patient to self administer all injections with nursing supervision. Nursing reports patient doing well with self injections.
Discussed with nurse
Will follow.
Diabetes History
- -
Type of Diabetes: 2
Pre-Admission Diabetes Regimen
12/09/24 12/10/24
17:55 02:57
Creatinine 3.4 H 3.4 H
Lab Results
Hemoglobin A1c 7.5 % (4.0-5.6) H 11/26/24 10:07
Insulin Pump Settings
IP Diabetes Regimen
12/09/24 12/09/24 12/09/24
08:09 12:31 17:08
Glucose
POC Glucose 139 H 187 H 119 H
12/09/24 12/09/24 12/10/24
17:55 21:54 02:53
Glucose 106 H
POC Glucose 161 H 194 H
12/10/24 12/10/24
02:57 07:50
Glucose 155 H
POC Glucose 106 H
Meal type: Dinner
Amount consumed: 100%
Patient Education
[2024-12-10] MEDS: LANTUS 0.1 UNITS SC (08:03)
[2024-12-10] MEDS: LIDOCAINE 4% PATCH 1 PATCH TOPICAL (08:04)
[2024-12-10] MEDS: PACERONE 200 MG PO ×3 (08:04→22:19)
[2024-12-10] MEDS: SENOKOT-S 1 TABLET PO ×2 (08:04→20:17)
[2024-12-10] MEDS: LEXAPRO 10 MG PO (08:05)
[2024-12-10] MEDS: NEURONTIN 100 MG PO ×3 (08:05→22:17)
[2024-12-10] MEDS: PROTONIX 40 MG PO (08:05)
[2024-12-10] MEDS: LOW STRENGTH ASPIRIN 81 MG PO (08:05)
[2024-12-10] MEDS: TOPROL XL 50 MG PO (08:05)
[2024-12-10] MEDS: LIPITOR 40 MG PO (08:05)
[2024-12-10] MEDS: FEOSOL 325 MG PO (08:05)
[2024-12-10] MEDS: ELIQUIS 5 MG PO ×2 (08:05→20:17)
[2024-12-10] MEDS: VITAMIN C 500 MG PO (08:05)
[2024-12-10] MEDS: NOVOLOG FLEXPEN-MODERATE RESISTANCE SC ×2 (08:06→13:11)
--- NOTE | 2024-12-10 08:07 | W.PN.CT ---
Today's Communication / Plan
-
-pod #6
-no issues overnight, no complaints
-sinus ryann 50s overnight.
-Cr is 3.4 (3.4 on 12/09). Appreciate Renal input
-diurese if ok with Renal
-encourage IS, OOB, ambulate
Assessment / Plan
-
Assessment:
-s/p Median sternotomy/CABG x 4 (DARIUSZ to LAD, GSV to D1, GSV to OM1, GSV to RPDA)/Endoscopic harvest/prep of RLE GSV/Endoscopic/partial open harvest/prep of LLE GSV/ELAA (50mm AtriClip), by Dr. Cervantes, 12/04/24, pod#6
-Newly diagnosed, likely ischemic cardiomyopathy w/ LVEF 30-35% on presentation w/ acute, systolic heart failure; EF improved to 55-60% postop, per intraop ANGELA
-MVCAD including ORTHOTIC AND PROSTHETIC TECHNICIAN of LAD
-NIDDM (hgb A1C 7.5)
-HTN
-HLD
-MO (BMI 41.3) - SD
-Former tobacco use (currently occasional Cigar)
-Prostate CA S/P radical prostatectomy, 2018
-Suspected CKD 3b (preop Cr 1.5)
-KERRIE (cr 1.4 -1.8 preop)
-S/P R TKA
-Acute postop blood loss/Anemia (stable without blood transfusion)
-Acute postop atelectasis
-Acute postop hypoxemia
-Acute postop hypovolemia with subsequent hypervolemia
-Acute postop KERRIE
-Acute postop hypokalemia
-Acute postop hyponatremia
-Acute postop a-fib with RVR
Discussed patient care with: Nursing and Care Team
Subjective
Procedure
-s/p Median sternotomy/CABG x 4 (DARIUSZ to LAD, GSV to D1, GSV to OM1, GSV to RPDA)/Endoscopic harvest/prep of RLE GSV/Endoscopic/partial open harvest/prep of LLE GSV/ELAA (50mm AtriClip), by Dr. Cervantes, 12/04/24
-
Date of Service: December 10, 2024
Objective Data
-
Lab Results
12/10/24 02:57
12/10/24 02:57
PT 16.6 Sec (11.4-14.6) H 12/04/24 14:39
INR 1.31 12/04/24 14:39
APTT 30.1 Sec (23.4-35.0) 12/04/24 14:39
Vital Signs
Vital Signs
Temp Pulse Resp BP Pulse Ox
97.6 F 58 20 123/84 90
12/10/24 07:18 12/10/24 04:00 12/10/24 07:18 12/10/24 02:47 12/10/24 07:18
CT Intake/Output/Weight
12/09/24 12/10/24 12/10/24
18:59 06:59 18:59
Intake Total 480 / 960 480 / 960
Output Total 900 / 1550 650 / 1550
Balance -420 / -590 -170 / -590
SaO2: 90
Physical Exam
-
General: Awake and AOx3
Cardiovascular: Regular rate & rhythm, No Murmurs and No Rub
Respiratory: Decreased Breath Sounds
Sternum: Stable
Incision: Clean, Dry and Intact
Extremities: Edema +2 (b/l thighs with bruising, cdi)
Abdomen: soft, nontender, nondistended, + BM
Data Reviewed
-
Lab Results: Results Reviewed
Medications: Active Meds Reviewed
Chest X-Ray: Report Reviewed and Image Reviewed
ECG: Report Reviewed and Image Reviewed
[2024-12-10] MEDS: BUMEX 2 MG IV ×2 (09:57→15:07)
[2024-12-10] MEDS: MIRALAX 17 GRAMS PO (09:57)
[2024-12-10] MEDS: KCL 40 MEQ PO ×2 (10:01→18:45)
[2024-12-10] MEDS: ZAROXOLYN 5 MG PO (10:01)
--- NOTE | 2024-12-10 10:21 | W.PN.CD ---
Today's Communication / Plan
-
IV Bumex 2 mg twice daily
Obtain daily weights, strict I/O
Trend Cr
Impression / Plan
-
Ischemic Cardiomyopathy, EF 40%, with acute HFrEF => LVEF improved to 55-60% on intraop ANGELA 12/04/2024
-now has severe CHF exacerbation requiring IV diuresis and frequent lab/telemetry monitoring
-cont Toprol XL 50mg daily
-GDMT limited by renal function
-diuresis guided by nephrology in setting of KERRIE, would favor IV Bumex 2mg BID
Post op KERRIE
-Cr now 3.4, has been stable for several days. Creatinine 1.3 on admission
-Suspect cardiorenal etiology. Normal weight is 210 lb according to him. He is up to 257 lb and examines overloaded
-Diuresis with 2mg IV Bumex BID
-Obtain daily weights, strict I/O
-Renal following, appreciate recs
CAD, s/p CABG 12/04/24
-CABG x 4 (DARIUSZ to LAD, GSV to D1, GSV to OM1, GSV to RPDA)
-ELAA (50mm AtriClip)
-ASA 81mg
New post-op AFib: paroxysmal
-back in NSR
-continue p.o. amiodarone
-cont Toprol XL
-CHADS2-VASC = 4. Add eliquis 5mg bid for OAC.
NSVT: none on tele last 24 hrs, cont Toprol XL
HTN: monitor on Toprol XL
DM2
SD on CPAP
Obesity, morbid: will benefit from weight loss moving forward
Subjective: Breathing and chest pain are improved. Still has significant swelling in his lower and upper extremities.
Physical Exam
Vital Signs/Labs
Vital Signs
Temp Pulse Resp BP Pulse Ox
97.6 F 59 20 135/98 90
12/10/24 07:18 12/10/24 10:01 12/10/24 07:18 12/10/24 10:01 12/10/24 08:13
12/09/24 12/10/24 12/11/24
06:59 06:59 06:59
Actual Weight 259 lb 4.218 oz 257 lb 7.999 oz
12/10/24 02:57
12/10/24 02:57
PT 16.6 Sec (11.4-14.6) H 12/04/24 14:39
INR 1.31 12/04/24 14:39
APTT 30.1 Sec (23.4-35.0) 12/04/24 14:39
Magnesium 2.5 mg/dl (1.6-2.3) H 12/09/24 04:22
Triglycerides 110 mg/dl (10-149) 11/27/24 07:32
LDL Cholesterol, Calc 76 mg/dl 11/27/24 07:32
VLDL Cholesterol, Calc 22 mg/dl (0-30) 11/27/24 07:32
HDL Cholesterol 46 mg/dl 11/27/24 07:32
11/26/24 12/04/24
10:07 21:40
Tiy-B-Nrdsshspgop Pept 2860 1880
Physical Exam
Constitutional: No acute distress and Comfortable
Cardiovascular: Rhythm & rate is regular, Pedal edema present, S1S2 is normal and Murmur/rub/gallop absent
Respiratory: Respiratory effort normal and Lungs clear to auscul.
Neuro/Psych: AO x 3
Data Reviewed
-
Date of Service: December 10, 2024
Medical Decision Making: Reviewed Test Results, Independent Historian Assessment, Test Interpretation and Review of Case with other Provider
EKG: Tracing Personally Visualized and interpreted
Echo: Report Reviewed by me
Labs: Labs Reviewed by me
--- NOTE | 2024-12-10 10:23 | CM ---
Reviewed chart. Met with Mr. Herman to review discharge plans. He states he is feeling well. We reviewed a home visit by the Transitional Care Nurse. He is agreeable to a home visit. Completed the paperwork for the patient assistance program
for Jaimie. Just waiting for his brother to bring up his two paychecks stub to submit with the application. Prior to admission he resides alone in a two story home without any steps to enter. He has a full flight of steps to get to bedroom/full
bathroom. Prior to admission he was independent with ambulation and adls. He does not have any DME in the home. He ambulated 200 feet the other day. He does not have a prescription plan and started the Patient Assistance Program for Jaimie. He
does know about [facility]. His brother and [id number] as well s his children will be stopping by to check on him. He also has supportive friends. Medical work-up in progress. The discharge plan is to return home with family and friends checking
on him and a home visit by the Transitional Care Nurse when medically stable.
--- NOTE | 2024-12-10 12:59 | W.PN.NEPH.PH ---
Today's Communication / Plan
-
bumex
Assessment/Plan
-
Assessment
CAD status post CABG
KERRIE related to cardiac surgery, predisposed by DKD
Probable CKD 3B
Diabetes mellitus type 2
Proteinuria
Hyperdense right renal cyst
Hypertension
Hyperlipidemia
Recovered ejection fraction
Plan
Cr 1.3 on admit
Quantify proteinuria=pcr 0.3
No ARB
No SGLT2i
Will need eventual CT of the abdomen for right hyperdense renal cyst
Patel out 11/06
Remains nonoliguric
diuretics as needed/last dose 60 mg Lasix 12/07
cr plateaued
bumex 2 bid
d/w medcal team
monitor another 24hr
will fu w our office in 1-2 wks post dc
-
-
Date of Service: December 10, 2024
CC / HPI / ROS
-
Chief Complaint:
sob
History of Present Illness:
cad s/p cabg kerrie cr wnl on admit > 3.4 post CABG
Review of Systems:
no sob/cp
nonoliguric
Labs
-
Labs:
WBC 8.7 10^3/uL (4.8-10.8) 12/10/24 02:57
RBC 3.10 10^6/uL (4.70-6.10) L 12/10/24 02:57
Hgb 9.1 g/dL (13.0-18.0) L 12/10/24 02:57
Hct 26.5 % (39.0-52.0) L 12/10/24 02:57
Plt Count 306 10^3/uL (130-400) 12/10/24 02:57
Sodium 135 mmol/L (135-145) 12/10/24 02:57
Potassium 3.7 mmol/L (3.5-5.1) 12/10/24 02:57
Chloride 92 mmol/L (98-107) L 12/10/24 02:57
Carbon Dioxide 33 mmol/L (22-30) H 12/10/24 02:57
BUN 66 mg/dl (9-20) H 12/10/24 02:57
Creatinine 3.4 mg/dL (0.7-1.3) H 12/10/24 02:57
eGFR 19.84 12/10/24 02:57
Glucose 155 mg/dl (70-99) H 12/10/24 02:57
Calcium 8.8 mg/dl (8.4-10.2) 12/10/24 02:57
Uzw-W-Ioojyoodwlx Pept 1880 pg/ml 12/04/24 21:40
Albumin 3.1 g/dl (3.5-5.0) L 12/09/24 04:22
Physical Exam
-
Vital Signs:
Vital Signs
Temp Pulse Resp BP Pulse Ox
98.3 F 59 20 135/98 90
12/10/24 10:59 12/10/24 10:01 12/10/24 10:59 12/10/24 10:01 12/10/24 10:59
Respiratory:: Bilateral: CTA
Lung Excursion:: Normal
Abdomen:: Soft
Bowel Sounds:: Normal
Extremity Edema:: +2: Bilateral:
[2024-12-10] MEDS: NSS IV (13:06)
[2024-12-10 13:17] LABS: Glucose - Point of Care 114 mg/dl (70-99)
[2024-12-10] MEDS: DIAMOX 250 MG PO (15:07)
[2024-12-10] MEDS: ROXICODONE 5 MG PO ×2 (15:35→22:18)
[2024-12-10 16:37] LABS: Glucose - Point of Care 239 mg/dl (70-99)
[2024-12-10 17:01] LABS: Blood Urea Nitrogen 66 mg/dl (9-20); Calcium 8.8 mg/dl (8.4-10.2); Carbon Dioxide 34 mmol/L (22-30); Chloride 91 mmol/L (98-107); Estimated Creatinine Clearance 29 ml/min; Glucose 200 mg/dl (70-99); Magnesium 2.3 mg/dl (1.6-2.3); Potassium 3.5 mmol/L (3.5-5.1); Sodium 134 mmol/L (135-145); eGFR 20.56
[2024-12-10] MEDS: NOVOLOG FLEXPEN-MODERATE RESISTANCE 3 UNITS SC (17:20)
[2024-12-10] MEDS: FLUSH (NSS) 1 FLUSH IV (20:17)
[2024-12-10 22:11] LABS: Glucose - Point of Care 94 mg/dl (70-99)
--- NOTE | 2024-12-10 23:29 | PTCARENOTE ---
Addendum entered by Goldie Almazan RN 12/10/24 23:31:
Respiratory therapist placed pt on CPAP. Comfort measures provided.
Original Note:
Received pt at change of shift OOB in chair. Ambulating in room ad pedrito. NSR on the monitor. HR in the 60s. Educated pt on the importance of measuring urine output and provided a urinal. Pt verbalized understanding. Surgical incisions are open to air
and clean, dry, and intact. Pt denies SOB or chest pain. Pt rates b/l LE incisional pain a 02/02. PRN oxycodone given--See MAR. Sternal precautions maintained. Call lewis within reach.
[2024-12-11] VITALS (9 sets, daily range): BP systolic 117–143; BP diastolic 70–89; PULSE 60; BMI 41.0
[2024-12-11 05:25] LABS: Hematocrit 31.2 % (39.0-52.0); Hemoglobin 10.8 g/dL (13.0-18.0); Mean Corp Hgb Conc. 34.6 g/dL (33.0-37.0); Mean Corpuscular Hgb 29.8 pg (27.0-31.0); Mean Corpuscular Volume 86.2 fL (80.0-94.0); Mean Platelet Volume 10.3 fL (7.4-10.4); Platelet Count 359 10^3/uL (130-400); Red Blood Cell Count 3.62 10^6/uL (4.70-6.10); Red Cell Dist. Width 14.1 % (11.5-14.5); White Blood Cell Count 10.2 10^3/uL (4.8-10.8)
[2024-12-11 05:27] LABS: Blood Urea Nitrogen 63 mg/dl (9-20); Carbon Dioxide 33 mmol/L (22-30); Chloride 91 mmol/L (98-107); Estimated Creatinine Clearance 28 ml/min; Glucose 153 mg/dl (70-99); Magnesium 2.4 mg/dl (1.6-2.3); Potassium 3.6 mmol/L (3.5-5.1); Sodium 138 mmol/L (135-145); eGFR 20.56
[2024-12-11] MEDS: TYLENOL 1000 MG PO ×3 (06:21→21:55)
--- NOTE | 2024-12-11 07:21 | PN.DE.MGMTRT ---
Insulin Management
- -
12/11/2024 Diabetes Management Consult Follow up
Patient admitted 11/26 with difficulty breathing. Had cardiac cath - CABG 12/04. PMH HTN, HCL, Prostate CA, SD, diabetes. Prior to admission was taking no medication for diabetes. A1C 7.5%.
Patient is awake alert and oriented OOB in chair, no cp or SOB. States 5 - 6 years ago had medication for diabetes but he was able to get A1C down to 5 so doctor took him off medication. States he has not been to a doctor in over 1 year. He is
very receptive to monitoring, will provide new monitor.
POD 7 s/p CABG x 4. Transitioned off of glycemic insulin protocol 12/06.
CR 3.3, eGFR 20.56. Will not start oral meds due to cr. Glucose range 12/10 96 to 239, HS glucose 94. Fasting glucose today 153. Will continue AM lantus 10 units with moderate corrective insulin.
Paraprofessional Aide Teacher, Annette CM, [facility], has educated patient on insulin administration, provided new meter. Patient to self administer all injections with nursing supervision. Nursing reports patient doing well with self injections.
Discussed with nurse
Will follow.
Diabetes History
- -
Type of Diabetes: 2
Pre-Admission Diabetes Regimen
12/10/24 12/11/24
16:32 04:57
Creatinine 3.3 H 3.3 H
Lab Results
Hemoglobin A1c 7.5 % (4.0-5.6) H 11/26/24 10:07
Insulin Pump Settings
IP Diabetes Regimen
12/10/24 12/10/24 12/10/24
07:50 13:15 16:32
Glucose 200 H
POC Glucose 106 H 114 H
12/10/24 12/10/24 12/11/24
16:36 22:09 04:57
Glucose 153 H
POC Glucose 239 H 94
Patient Education
[2024-12-11 07:28] LABS: Glucose - Point of Care 133 mg/dl (70-99)
[2024-12-11] MEDS: ELIQUIS 5 MG PO ×2 (08:42→19:42)
[2024-12-11] MEDS: LEXAPRO 10 MG PO (08:42)
[2024-12-11] MEDS: SENOKOT-S 1 TABLET PO ×2 (08:42→19:42)
[2024-12-11] MEDS: NEURONTIN 100 MG PO ×3 (08:43→21:55)
[2024-12-11] MEDS: VITAMIN C 500 MG PO (08:43)
[2024-12-11] MEDS: BUMEX 2 MG PO ×2 (08:43→19:41)
[2024-12-11] MEDS: PROTONIX 40 MG PO (08:43)
[2024-12-11] MEDS: FEOSOL 325 MG PO (08:43)
[2024-12-11] MEDS: PACERONE 200 MG PO ×3 (08:44→21:55)
[2024-12-11] MEDS: KCL 40 MEQ PO ×2 (08:44→19:40)
[2024-12-11] MEDS: TOPROL XL 50 MG PO (08:45)
[2024-12-11] MEDS: LOW STRENGTH ASPIRIN 81 MG PO (08:45)
[2024-12-11] MEDS: LIPITOR 40 MG PO (08:45)
--- NOTE | 2024-12-11 08:45 | W.PN.CT ---
Today's Communication / Plan
-
-pod #7
-no issues overnight, no complaints
-diuresed on 12/10 (needs accurate UO). TEDs on
-Cr is 3.3 (3.4 on 12/09). Appreciate Renal input
-diurese if ok with Renal
-encourage IS, OOB, ambulate
Assessment / Plan
-
Assessment:
-s/p Median sternotomy/CABG x 4 (DARIUSZ to LAD, GSV to D1, GSV to OM1, GSV to RPDA)/Endoscopic harvest/prep of RLE GSV/Endoscopic/partial open harvest/prep of LLE GSV/ELAA (50mm AtriClip), by Dr. Cervantes, 12/04/24, pod#7
-Newly diagnosed, likely ischemic cardiomyopathy w/ LVEF 30-35% on presentation w/ acute, systolic heart failure; EF improved to 55-60% postop, per intraop ANGELA
-MVCAD including CLINICAL CARE MANAGER of LAD
-NIDDM (hgb A1C 7.5)
-HTN
-HLD
-MO (BMI 41.3) - DS
-Former tobacco use (currently occasional Cigar)
-Prostate CA S/P radical prostatectomy, 2018
-Suspected CKD 3b (preop Cr 1.5)
-KERRIE (cr 1.4 -1.8 preop)
-S/P R TKA
-Acute postop blood loss/Anemia (stable without blood transfusion)
-Acute postop atelectasis
-Acute postop hypoxemia
-Acute postop hypovolemia with subsequent hypervolemia
-Acute postop KERRIE
-Acute postop hypokalemia
-Acute postop hyponatremia
-Acute postop a-fib with RVR
Discussed patient care with: Nursing and Care Team
Subjective
Procedure
-s/p Median sternotomy/CABG x 4 (DARIUSZ to LAD, GSV to D1, GSV to OM1, GSV to RPDA)/Endoscopic harvest/prep of RLE GSV/Endoscopic/partial open harvest/prep of LLE GSV/ELAA (50mm AtriClip), by Dr. Cervantes, 12/04/24
-
Date of Service: December 11, 2024
Objective Data
-
Lab Results
12/11/24 04:57
12/11/24 04:57
PT 16.6 Sec (11.4-14.6) H 12/04/24 14:39
INR 1.31 12/04/24 14:39
APTT 30.1 Sec (23.4-35.0) 12/04/24 14:39
Vital Signs
Vital Signs
Temp Pulse Resp BP Pulse Ox
98.2 F 54 18 117/81 93
12/11/24 07:06 12/11/24 06:00 12/11/24 07:06 12/11/24 04:35 12/11/24 07:06
CT Intake/Output/Weight
12/10/24 12/11/24 12/11/24
18:59 06:59 18:59
Intake Total 600 / 600
Output Total 900 / 900
Balance -300 / -300
SaO2: 93
Physical Exam
-
General: Awake and AOx3
Cardiovascular: Regular rate & rhythm, No Murmurs and No Rub
Respiratory: Decreased Breath Sounds
Sternum: Stable
Incision: Clean, Dry and Intact
Extremities: Edema +2 (b/l thighs with bruising, cdi)
Abdomen: soft, nontender, nondistended, + BM
Data Reviewed
-
Lab Results: Results Reviewed
Medications: Active Meds Reviewed
Chest X-Ray: Report Reviewed and Image Reviewed
ECG: Report Reviewed and Image Reviewed
[2024-12-11] MEDS: LIDOCAINE 4% PATCH 1 PATCH TOPICAL (08:46)
[2024-12-11] MEDS: LANTUS 0.1 UNITS SC (08:46)
[2024-12-11] MEDS: MIRALAX 17 GRAMS PO (08:46)
[2024-12-11] MEDS: DIAMOX 250 MG PO (08:48)
[2024-12-11] MEDS: NOVOLOG FLEXPEN-MODERATE RESISTANCE SC ×2 (08:53→16:54)
--- NOTE | 2024-12-11 10:23 | CM ---
Reviewed chart. Met with Mr. Herman to review discharge plans. He states he feels well just a little tired. We reviewed a home visit by the Transitional Care Nurse. He is agreeable to a home visit. Prior to admission he resides alone in a two
story home without any steps t enter. He has a full flight of steps to get to bedroom/full bathroom. Prior to admission he was independent with ambulation and adls. He does not have any DME in the home. He does not have a prescription plan. He is
aware of [facility]. He has the one month free coupon for Eliquis. Will send the patient assistance application once his brother brings in two paycheck steps. He states his brother and [id number] and his children will be stopping in and checking
on him. He states he has supportive friends. Medical work-up in progress. The discharge plan is to return home with family and friend support and a home visit by the Transitional Care Nurse when medically stable.
[2024-12-11] MEDS: NSS IV (10:46)
[2024-12-11 11:05] LABS: Glucose - Point of Care 164 mg/dl (70-99)
--- NOTE | 2024-12-11 12:14 | W.PN.NEPH.PH ---
Today's Communication / Plan
-
cotn bumex
Assessment/Plan
-
Assessment
CAD status post CABG
KERRIE related to cardiac surgery, predisposed by DKD
Probable CKD 3B
Diabetes mellitus type 2
Proteinuria
Hyperdense right renal cyst
Hypertension
Hyperlipidemia
Recovered ejection fraction
Cr 1.3 on admit
Quantify proteinuria=pcr 0.3
Plan
KERRIE-cr stable at 3.3, non oliguric with diuretics
wt improving
Bp stable
cotn bumex and po kcl
No ARB
No SGLT2i
Will need eventual CT of the abdomen for right hyperdense renal cyst
ok for d/c per renal
labs in 2-3days
will fu w our office in 1-2 wks post dc
-
-
Date of Service: December 11, 2024
CC / HPI / ROS
-
Chief Complaint:
sob
History of Present Illness:
cad s/p cabg kerrie cr wnl on admit > 3.4 post CABG
cr stable at 3.3
k normal
Bp stable, wt decreasing
Review of Systems:
no sob/cp
nonoliguric
edema slow to improve
Labs
-
Labs:
WBC 10.2 10^3/uL (4.8-10.8) 12/11/24 04:57
RBC 3.62 10^6/uL (4.70-6.10) L 12/11/24 04:57
Hgb 10.8 g/dL (13.0-18.0) L 12/11/24 04:57
Hct 31.2 % (39.0-52.0) L 12/11/24 04:57
Plt Count 359 10^3/uL (130-400) 12/11/24 04:57
Sodium 138 mmol/L (135-145) 12/11/24 04:57
Potassium 3.6 mmol/L (3.5-5.1) 12/11/24 04:57
Chloride 91 mmol/L (98-107) L 12/11/24 04:57
Carbon Dioxide 33 mmol/L (22-30) H 12/11/24 04:57
BUN 63 mg/dl (9-20) H 12/11/24 04:57
Creatinine 3.3 mg/dL (0.7-1.3) H 12/11/24 04:57
eGFR 20.56 12/11/24 04:57
Glucose 153 mg/dl (70-99) H 12/11/24 04:57
Calcium 9.0 mg/dl (8.4-10.2) 12/11/24 04:57
Iql-D-Fhmiigtfhqr Pept 1880 pg/ml 12/04/24 21:40
Albumin 3.1 g/dl (3.5-5.0) L 12/09/24 04:22
Physical Exam
-
Vital Signs:
Vital Signs
Temp Pulse Resp BP Pulse Ox
98.1 F 53 18 124/80 94
12/11/24 11:00 12/11/24 10:00 12/11/24 11:00 12/11/24 08:48 12/11/24 11:00
Cardiovascular:: Regular rate and rhythm
Respiratory:: Bilateral: CTA
Lung Excursion:: Normal
Abdomen:: Soft
Bowel Sounds:: Normal
Extremity Edema:: +2: Bilateral:
Patel Catheter: No
[2024-12-11] MEDS: NOVOLOG FLEXPEN-MODERATE RESISTANCE 1 UNITS SC (12:28)
[2024-12-11] MEDS: MILK OF MAGNESIA 30 ML PO (12:29)
--- NOTE | 2024-12-11 13:50 | W.PN.CD ---
Today's Communication / Plan
-
Continue p.o. Bumex 2 mg twice daily
Continue metoprolol. Reassess for remainder of GDMT once KERRIE resolves.
Discharge on amiodarone and Eliquis. He has 30 days free of Eliquis and then case management has applies for the assistance program. I asked him to please let us know if this does not work out so we can find an alternative option.
Cardiology will sign off at this time. Please call with additional questions or concerns.
Impression / Plan
-
Ischemic Cardiomyopathy, EF 40%, with acute HFrEF => LVEF improved to 55-60% on intraop ANGELA 12/04/2024
-GDMT:
-- continue Toprol XL 50mg daily (uptitration limited by bradycardia)
-- Remainder limited by renal function. Reassess as outpatient.
-diuresis guided by nephrology in setting of KERRIE, would discharge on p.o. Bumex 2 mg twice daily
Post op KERRIE
-Cr in 3's, has been stable for several days. Creatinine 1.3 on admission
-Suspect cardiorenal etiology. Normal weight is 210 lb according to him. He is up to 254 lb and examines overloaded
-Diuresis with 2mg PO Bumex BID
-Obtain daily weights, strict I/O
-Renal following, appreciate recs
CAD, s/p CABG 12/04/24
-CABG x 4 (DARIUSZ to LAD, GSV to D1, GSV to OM1, GSV to RPDA)
-ELAA (50mm AtriClip)
-ASA 81mg
New post-op AFib: paroxysmal
-back in NSR
-continue p.o. amiodarone
-cont Toprol XL
-CHADS2-VASC = 4. Eliquis 5mg bid for OAC. He has 30 days free and then case management applied for assistance program. I asked him to please let us know if that does not work out so we can find another option.
NSVT: none on tele last 24 hrs, cont Toprol XL
HTN: monitor on Toprol XL
DM2
SD on CPAP
Obesity, morbid: will benefit from weight loss moving forward
Subjective: Breathing and chest pain are improved. Still has significant swelling in his lower and upper extremities.
Physical Exam
Vital Signs/Labs
Vital Signs
Temp Pulse Resp BP Pulse Ox
98.1 F 53 18 124/80 94
12/11/24 11:00 12/11/24 10:00 12/11/24 11:00 12/11/24 08:48 12/11/24 11:00
12/10/24 12/11/24 12/12/24
06:59 06:59 06:59
Actual Weight 257 lb 7.999 oz 253 lb 12.033 oz
12/11/24 04:57
12/11/24 04:57
PT 16.6 Sec (11.4-14.6) H 12/04/24 14:39
INR 1.31 12/04/24 14:39
APTT 30.1 Sec (23.4-35.0) 12/04/24 14:39
Magnesium 2.4 mg/dl (1.6-2.3) H 12/11/24 04:57
Triglycerides 110 mg/dl (10-149) 11/27/24 07:32
LDL Cholesterol, Calc 76 mg/dl 11/27/24 07:32
VLDL Cholesterol, Calc 22 mg/dl (0-30) 11/27/24 07:32
HDL Cholesterol 46 mg/dl 11/27/24 07:32
11/26/24 12/04/24
10:07 21:40
Zsl-K-Tnrbcdlxghj Pept 2860 1880
Physical Exam
Constitutional: No acute distress and Comfortable
Cardiovascular: Rhythm & rate is regular, Pedal edema present, S1S2 is normal and Murmur/rub/gallop absent
Respiratory: Respiratory effort normal and Lungs clear to auscul.
Neuro/Psych: AO x 3
Data Reviewed
-
Date of Service: December 11, 2024
Medical Decision Making: Reviewed Test Results, Independent Historian Assessment, Test Interpretation and Review of Case with other Provider
EKG: Tracing Personally Visualized and interpreted
Echo: Report Reviewed by me
Labs: Labs Reviewed by me
[2024-12-11 16:53] LABS: Glucose - Point of Care 146 mg/dl (70-99)
--- NOTE | 2024-12-11 18:17 | PTCARENOTE ---
pt continues to be nsr on the monitor, hr in the 60s, vss. pt has been ambulating through the halls and tolerating well. pt offers no complaints at this time. pt educated on plan of care and pt verbalized understanding. call lewis within reach.
[2024-12-11] MEDS: FLUSH (NSS) 1 FLUSH IV (19:43)
--- NOTE | 2024-12-11 21:03 | PTCARENOTE ---
Received pt at change of shift resting in chair. AAOx3, BP stable, Sinus ryann on the monitor, HR in the 50's. Pt denies any chest pain or SOB. Surgical incisions intact. Pt rates incisional pain a 2/10 and that it is an acceptable level per pt. pt
educated on importance of accurate I&O, urinal provided. Pt encouraged to call RN with any changes. Call lewis within reach.
Removed left thigh Aquacel per John Hou, MANUELA PA. Incisions left open to air, approximated, no redness noted. Generalized ecchymosis around surgical incisions.
[2024-12-11 21:58] LABS: Glucose - Point of Care 137 mg/dl (70-99)
[2024-12-12 04:01] VITALS: BP 154/92
[2024-12-12 04:06] VITALS: BMI 40.7
[2024-12-12 04:45] LABS: Hematocrit 30.7 % (39.0-52.0); Hemoglobin 10.5 g/dL (13.0-18.0); Mean Corp Hgb Conc. 34.2 g/dL (33.0-37.0); Mean Corpuscular Hgb 29.7 pg (27.0-31.0); Mean Platelet Volume 10.2 fL (7.4-10.4); Platelet Count 375 10^3/uL (130-400); Red Blood Cell Count 3.53 10^6/uL (4.70-6.10); Red Cell Dist. Width 14.4 % (11.5-14.5); White Blood Cell Count 9.7 10^3/uL (4.8-10.8)
[2024-12-12 05:10] LABS: Blood Urea Nitrogen 63 mg/dl (9-20); Calcium 9.4 mg/dl (8.4-10.2); Carbon Dioxide 37 mmol/L (22-30); Chloride 90 mmol/L (98-107); Estimated Creatinine Clearance 29 ml/min; Glucose 143 mg/dl (70-99); Magnesium 2.4 mg/dl (1.6-2.3); Potassium 3.6 mmol/L (3.5-5.1); Sodium 139 mmol/L (135-145); eGFR 21.34
[2024-12-12] MEDS: TYLENOL 1000 MG PO (06:18)
--- NOTE | 2024-12-12 06:59 | PTCARENOTE ---
patients HR flipped into a afib/aflutter, rate 112. went into to do an EKG and woke patient up. patient then flipped back into sinus- SB 50s. updated John ROY PA. asymptomatic.
--- NOTE | 2024-12-12 07:27 | W.PN.CT ---
Today's Communication / Plan
-
-pod #8
-no issues overnight, no complaints
-diuresed well with Bumex 2 mg bid (UO 1759/1611 in 12/24 hrs)
-follow Cr is 3.2 (3.3 past 48 hrs)
-current meds (ASA, Eliquis, Amio, Toprol, Bumex, Feosol, Vit C, Lipitor, Protonix)
-follow Qt on Lexapro and Amio
-encourage IS, OOB, ambulate
-appreciate everyone's input
Assessment / Plan
-
Assessment:
-s/p Median sternotomy/CABG x 4 (DARIUSZ to LAD, GSV to D1, GSV to OM1, GSV to RPDA)/Endoscopic harvest/prep of RLE GSV/Endoscopic/partial open harvest/prep of LLE GSV/ELAA (50mm AtriClip), by Dr. Cervantes, 12/04/24, pod#8
-Newly diagnosed, likely ischemic cardiomyopathy w/ LVEF 30-35% on presentation w/ acute, systolic heart failure; EF improved to 55-60% postop, per intraop ANGELA
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
-NIDDM (hgb A1C 7.5)
-HTN
-HLD
-MO (BMI 41.3) - DS
-Former tobacco use (currently occasional Cigar)
-Prostate CA S/P radical prostatectomy, 2018
-Suspected CKD 3b (preop Cr 1.5)
-KERRIE (cr 1.4 -1.8 preop)
-S/P R TKA
-Acute postop blood loss/Anemia (stable without blood transfusion)
-Acute postop atelectasis
-Acute postop hypoxemia
-Acute postop hypovolemia with subsequent hypervolemia
-Acute postop KERRIE
-Acute postop hypokalemia
-Acute postop hyponatremia
-Acute postop a-fib with RVR
Discussed patient care with: Nursing and Care Team
Subjective
Procedure
-s/p Median sternotomy/CABG x 4 (DARIUSZ to LAD, GSV to D1, GSV to OM1, GSV to RPDA)/Endoscopic harvest/prep of RLE GSV/Endoscopic/partial open harvest/prep of LLE GSV/ELAA (50mm AtriClip), by Dr. Cervantes, 12/04/24
-
Date of Service: December 12, 2024
Objective Data
-
PT 16.6 Sec (11.4-14.6) H 12/04/24 14:39
INR 1.31 12/04/24 14:39
APTT 30.1 Sec (23.4-35.0) 12/04/24 14:39
Vital Signs
Vital Signs
Temp Pulse Resp BP Pulse Ox
97.7 F 57 18 143/89 94
12/11/24 22:30 12/11/24 22:30 12/11/24 22:30 12/11/24 22:30 12/11/24 22:30
CT Intake/Output/Weight
12/11/24 12/11/24 12/12/24
06:59 18:59 06:59
Intake Total 600 / 600 480 / 960 480 / 960
Output Total 900 / 900 2350 / 3325 975 / 3325
Balance -300 / -300 -1870 / -2365 -495 / -2365
SaO2: 94
Physical Exam
-
General: Awake and AOx3
Cardiovascular: Regular rate & rhythm, No Murmurs and No Rub
Respiratory: Decreased Breath Sounds
Sternum: Stable
Incision: Clean, Dry and Intact
Abdomen: soft, nontender, nondistended, + BM
Extremities: Edema +2 (b/l thighs with bruising, cdi)
Data Reviewed
-
Lab Results: Results Reviewed
Medications: Active Meds Reviewed
Chest X-Ray: Report Reviewed and Image Reviewed
ECG: Report Reviewed and Image Reviewed
[2024-12-12 07:37] VITALS: BP 138/86
[2024-12-12 07:45] LABS: Glucose - Point of Care 120 mg/dl (70-99)
[2024-12-12] MEDS: NEURONTIN 100 MG PO (07:56)
[2024-12-12] MEDS: KCL 40 MEQ PO ×2 (07:56→08:00)
[2024-12-12] MEDS: LOW STRENGTH ASPIRIN 81 MG PO (07:56)
[2024-12-12] MEDS: PROTONIX 40 MG PO (07:56)
[2024-12-12] MEDS: PACERONE 200 MG PO (07:56)
[2024-12-12] MEDS: LEXAPRO 10 MG PO (07:56)
[2024-12-12] MEDS: VITAMIN C 500 MG PO (07:58)
[2024-12-12] MEDS: FEOSOL 325 MG PO (07:58)
[2024-12-12] MEDS: BUMEX 2 MG PO (07:58)
[2024-12-12] MEDS: SENOKOT-S 1 TABLET PO (07:58)
[2024-12-12] MEDS: LIDOCAINE 4% PATCH TOPICAL (08:00)
[2024-12-12] MEDS: TOPROL XL 50 MG PO (08:00)
[2024-12-12] MEDS: LIPITOR 40 MG PO (08:00)
[2024-12-12] MEDS: ELIQUIS 5 MG PO (08:00)
[2024-12-12] MEDS: MIRALAX 17 GRAMS PO (08:08)
[2024-12-12] MEDS: LANTUS 0.1 UNITS SC (08:09)
[2024-12-12] MEDS: NOVOLOG FLEXPEN-MODERATE RESISTANCE SC ×2 (08:11→13:00)
--- NOTE | 2024-12-12 10:38 | W.PN.NEPH.PH ---
Today's Communication / Plan
-
ok for d/c per renal
Assessment/Plan
-
Assessment
CAD status post CABG
KERRIE related to cardiac surgery, predisposed by DKD
Probable CKD 3B
Diabetes mellitus type 2
Proteinuria
Hyperdense right renal cyst
Hypertension
Hyperlipidemia
Recovered ejection fraction
Cr 1.3 on admit
Quantify proteinuria=pcr 0.3
Plan
KERRIE-cr improving slowly at 3.2,
improving UOP and wts with diuretics
bumex per primary-could decrease to 2mg daily at d/c
Bp stable
k normal on kcl
No ARB
No SGLT2i
Will need eventual CT of the abdomen for right hyperdense renal cyst out pt
ok for d/c per renal
labs in 2-3days
will fu w our office in 1-2 wks post dc
-
-
Date of Service: December 12, 2024
CC / HPI / ROS
-
Chief Complaint:
sob
History of Present Illness:
cad s/p cabg kerrie cr wnl on admit > 3.4 post CABG
cr stable at 3.2, k 3.6
Bp stable, wt decreasing
Review of Systems:
no sob/cp
nonoliguric
edema better
Labs
-
Labs:
WBC 9.7 10^3/uL (4.8-10.8) 12/12/24 04:15
RBC 3.53 10^6/uL (4.70-6.10) L 12/12/24 04:15
Hgb 10.5 g/dL (13.0-18.0) L 12/12/24 04:15
Hct 30.7 % (39.0-52.0) L 12/12/24 04:15
Plt Count 375 10^3/uL (130-400) 12/12/24 04:15
Sodium 139 mmol/L (135-145) 12/12/24 04:15
Potassium 3.6 mmol/L (3.5-5.1) 12/12/24 04:15
Chloride 90 mmol/L (98-107) L 12/12/24 04:15
Carbon Dioxide 37 mmol/L (22-30) H 12/12/24 04:15
BUN 63 mg/dl (9-20) H 12/12/24 04:15
Creatinine 3.2 mg/dL (0.7-1.3) H 12/12/24 04:15
eGFR 21.34 12/12/24 04:15
Glucose 143 mg/dl (70-99) H 12/12/24 04:15
Calcium 9.4 mg/dl (8.4-10.2) 12/12/24 04:15
Zcj-H-Jfwlxorwekk Pept 1880 pg/ml 12/04/24 21:40
Albumin 3.1 g/dl (3.5-5.0) L 12/09/24 04:22
Physical Exam
-
Vital Signs:
Vital Signs
Temp Pulse Resp BP Pulse Ox
97.3 F 57 20 143/89 95
12/12/24 07:39 12/11/24 22:30 12/12/24 07:39 12/11/24 22:30 12/12/24 07:39
Cardiovascular:: Regular rate and rhythm
Respiratory:: Bilateral: CTA
Lung Excursion:: Normal
Abdomen:: Soft
Bowel Sounds:: Normal
Extremity Edema:: +2: Bilateral:
Patel Catheter: No
--- NOTE | 2024-12-12 11:22 | W.DCSUMMARY ---
Discharge Summary
Discharge Data
Date of Admission: 11/26/24
Date of Discharge: 12/12/24
-
Pending Results: No
Hospital Course
Primary care physician: Tanisha Short
Outpatient parking lot attendant and cashier: Mathew Mane (none prior to this admission)
Inpatient consultants: [facility] cardiology, pulmonary stocking inspector, nephrology, diabetes nurse practitioner
Procedures:
1. CABG, left atrial appendage clip
Primary Diagnosis:
1. 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
Secondary Diagnoses:
1. HF imp EF (35%.55% s/p CABG)
2. Type 2 diabetes (A1c 7.5)
3. HTN
4. HLD.
5. Prostate CA s/p prostatectomy 2019
6. Class III obesity (BMI 41.3)
7. Depression
8. Recovering alcoholic
9. Acute postop KERRIE on diabetic CKDIIIb (baseline creat 1.5)
10. S/P R TKA
11. Acute postop blood loss Anemia-expected
12. Acute postop atelectasis
13. Acute postop hypoxemia
13. Acute postop hypovolemia with subsequent hypervolemia
14. Acute postop hypokalemia due to diuretic therapy
15. Acute postop hyponatremia
16. Acute postop a-fib with RVR
17. Obstructive sleep apnea
18. Hyperdense right renal cyst-incidental finding
HPI: 59-year-old male with past medical history of hypertension, prostate cancer, obstructive sleep apnea, and hyperlipidemia presented to [facility] on 11/26/24 with complaints of increasing AARON over the past month which worsened in the
past 5 days. Patient also noted to have lower extremity edema and a weight gain of 40 pounds in the past 8 weeks.
Past Medical History
Hospital course: While in the ER, patient was found to be hypertensive and was started on oxygen via nasal cannula and was diuresed with Lasix. Since admission patient has been getting diuresed with 40 mg of IV Lasix twice daily. While in the
hospital patient received a echocardiogram which showed a LV ejection fraction of 30-35% and mild aortic regurgitation. Cardiac catheterization on 11/27/24 reported multivessel disease. On 11/28, patient with worsening creatinine, therefore dobutamine
was started to augment diuresis. Repeat TTE on 11/30 reported improvement of EF to 40%. On 12 01, patient became hypotensive and dobutamine was discontinued. Surgery was delayed to allow for improvement in creatinine. Patient creatinine improved to
1.5 on the day of surgery and patient underwent CABG x 4 with VALLEJO to LAD, SVG to D1, SVG to OM1, SVG to RPDA, and left atrial appendage number [address] Talon Cervantes on 12/04/2024. Patient received no intraoperative blood products he
returned to CVICU on Precedex. Initial pO2 on 100% FiO2 was 75. PEEP was increased to 10 to improve hypoxia. On postoperative day #1, patient was extubated at 0510 to 10 L mid flow. Creatinine increased from 1.7-2.5. Lasix and Zaroxolyn were
given. Diabetes nurse practitioner was consulted for assistance with diabetic regimen. Postoperative day #2, chest tubes were removed. Nephrology was consulted and agreed with diuretic regimen. Postoperative day #3, patient developed
postoperative A-fib with rapid ventricular response which was treated with IV amiodarone bolus and infusion. Creatinine plateaued at 3.4. On postoperative day #4, patient remained in atrial fibrillation and patient transition from aspirin/Plavix
to aspirin/Eliquis. Toprol increased to home dose of 50 mg daily. Diamox was given for continued diuresis as CO2 level 31. Patient was weaned from mid flow 15 L to 6 L. On postoperative day #5, amiodarone drip was discontinued and oral
amiodarone continued. Patient was weaned off oxygen. Postoperative day #6, patient was diuresed with Bumex 2 mg and Diamox 5mg, with potassium supplementation. On postoperative day #8, creatinine decreased to 3.2. Patient had diuresed a total of
4775 cc in the past 24 hours. Patient ambulated in halls independently. Discharge weight is 114.3 kg, below admission weight of 115.8 kg. Reinforced importance of following up with nephrology and obtaining BMP on Saturday and Saturday of next week.
Patient will continue on amiodarone 200 mg twice daily x 14 days then decrease to 200 mg daily. Blood sugars ranged 120-160 with glargine 10 units at bedtime. Low sodium, low cholesterol, carb reduced diet was reviewed with patient and benefits of
weight loss reinforced. Patient encouraged to obtain home scale and obtain and document daily weights for review with nephrology. Importance and benefit of long-term medical management reviewed with patient. Hemoglobin stable at 10.5 on day of
discharge. Patient will need eventual CT of the abdomen for incidental finding of right hyperdense renal cyst as an outpatient. Patient will follow-up with [facility] transitional care nurse team.
Home medication changes:
Stop Losartan as KERRIE
Esomeprazole to Pantoprozole while on Eliquis
Lipitor increased to high intensity dose (40mg) s/p CABG
New meds as listed below
Discharge Plan
-
Patient Disposition: Home (Routine Discharge)
Discharge Diagnosis/Procedures: CABG
Condition: Good
Diet: 2 Gram Sodium
Activity: No strenuous activity
Driving Restrictions: Not until seen by your Dr
Bathing Restrictions: OK to Shower
Blood Work: BMP/magnesium Saturday, and Saturday after discharge please send results to Dr. Green and CT surgery office
Other Services: Cardiac Rehab
Specialty Instructions: Weigh Daily- Call MD for wt gain/loss 3 lbs overnight/5 lbs in 1 week
Activity Restrictions/Additional Instructions:
Please speak with your primary care doctor about the renal ultrasound showing 2.1 cm complex cyst in the right kidney. Consider further imaging as an outpatient to exclude kidney cancer.
ACTIVITY:
-No strenuous activity: no heavy lifting, pushing, pulling anything over 15 pounds for one month
-continue to use stairs as tolerated
DRIVING RESTRICTIONS:
-No driving for one month or until approved by your surgeon
WOUND CARE:
-Shower daily. Use soap & water.
-No lotions, creams or powders on incision area.
DIET:
-continue a low fat/low cholesterol diet.
-IF you are diabetic, continue carb controlled diet.
CARDIAC REHAB:
-Please make appointment to start in 5-6 weeks with your local hospital program. (See Cardiac Rehabilitation Discharge Booklet).
SPECIALTY INSTRUCTIONS:
-Weigh yourself daily. Call your physician for any weight gain/loss of 3 lbs overnight or 5 lbs in one week.
-REPORT any clicking noise or uneven appearance of your sternum to your surgeon immediately.
-If you smoke, you are instructed to quit. The [place] [facility] [employer] phone number is [phone]
Instructions: *CBC Heart Failure Instructions
Stand Alone Forms: DC Instructions- Cath/EP Lab
Referrals:
CT Transitional Care Nurse [Outside] - in one to two days
(
The Cardiothoracic Transitional Care Nurse will call you to set up a visit in 1-2 days.)
[facility]. Cardiac Rehab [Outside] - 01/19/25 1:00 pm
(Cardiac Rehab Orientation appointment is on Sunday January 19, 2025 @ 1:00pm.
The Cardiac Rehab gym is located on the first floor of the [facility].)
Ysabel Corea CRNP [Specified Professional Personl] - 01/22/25 10:00 am
Tanisha Elmore DO [Family Provider] - in four to six weeks (Please make an appointment in four to six weeks. )
Talon Cervantes MD [Active] - 01/05/25 3:00 pm
Kaitlin Dawkins MD [Active] - (follow up in 1 week-call for appointment on 12/14 )
Additional Discharge Medication Instructions: please take amiodarone 200mg twice a day for 14 days and then 200mg daily
Please take your acetazolamide and bumex together and weigh yourself everyday
Prescriptions:
New
aspirin 81 mg Tablet,Chewable
81 mg PO DAILY Qty: 0 0RF
(DME) Contour Next Test Strips Strip
Qty: 100 1RF
Rx Instructions:
Test 2 times per day fasting and two hours after a meal in pattern, As Directed
(DME) lancets [Color Lancets] 21 gauge Misc
Qty: 100 1RF
Rx Instructions:
Test 2 times per day fasting and two hours after a meal in pattern, As Directed
acetaminophen 325 mg Tablet
650 mg PO Q4HPRN PRN (Reason: mild pain,headache,temp >101F ) Qty: 0 0RF
bumetanide 2 mg Tablet
2 mg PO BID Qty: 30 0RF
amiodarone 200 mg Tablet
200 mg PO BID Qty: 60 0RF
potassium chloride 20 mEq Tablet,Er Particles/Crystals
40 meq PO BID Qty: 30 0RF
Eliquis 5 mg Tablet
5 mg PO BID Qty: 60 1RF
insulin aspart U-100 100 unit/mL (3 mL) insulin pen
1 sliding scale dose SC AC Qty: 15 1RF
insulin glargine [Lantus Solostar U-100 Insulin] 100 unit/mL (3 mL) insulin pen
10 unit SC DAILY Qty: 15 1RF
(DME) pen needle, diabetic [Floresita Pen Needle] 32 gauge x 5/32' needle
See Rx Instructions .Route Qty: 1200 0RF
Rx Instructions:
As directed
acetazolamide 250 mg tablet
250 mg PO DAILY Qty: 7 1RF
Rx Instructions:
please take while on bumex
pantoprazole 40 mg Tablet,Delayed Release (Dr/Ec)
40 mg PO DAILY Qty: 30 2RF
atorvastatin 40 mg Tablet
40 mg PO DAILY Qty: 30 2RF
oxycodone 5 mg capsule
5 mg PO Q6H PRN (Reason: severe pain) Qty: 10 0RF
Continued
metoprolol succinate 50 mg Tablet Extended Release 24 Hr
50 mg PO DAILY
escitalopram oxalate 10 mg Tablet
10 mg PO DAILY
Discontinued
atorvastatin 10 MG tablet
40 mg PO DAILY
amlodipine 10 MG tablet
10 mg PO DAILY
esomeprazole magnesium 40 mg Capsule,Delayed Release(Dr/Ec)
40 mg PO DAILY
Rx Instructions:
before breakfast
losartan 100 mg Tablet
100 mg PO DAILY
Discharge Orders:
Discharge Patient (As Directed); Ordered 12/12/24
Ordered By: Rupal Segal
Care Plan Goals
Care Plan Goals:
Problem: Readiness for enhanced knowledge related to diagnosis and treatment plan
Goal: Understand your diagnosis and treatment plan needs, including medications if applicable.
Instructions: Know your diagnosis, underlying causes and treatment plan options, including medications if applicable. Consult with your health care team to learn about your diagnosis and treatment plan, including medications if applicable.
Discharge Date and Time
Discharge Date/Time: 12/12/24 13:51
Print Language: NAURUAN
[2024-12-12 11:25] VITALS: BP 113/61
[2024-12-12 12:21] LABS: Glucose - Point of Care 152 mg/dl (70-99)
--- NOTE | 2024-12-12 15:14 | PTCARENOTE ---
Pt received this am with no c/o of any chest pain, incisional pain or sob. OOB ad pedrito, gait steady. Room air sat 98%. Pt discharged to home with his brother. Discharge instructions given and reviewed with good understanding and all questions
answered.
== END 2024-12-12 13:51 | disposition home or self-care (01) | DRG 233 ==
LOC: IVU 11:56
PROVIDERS: Anesthesiology; Clinical Nurse Specialist Acute Care; Hospitalist; Nurse Practitioner; Urology; ADMITTING PHYSICIAN Hospitalist; ATTENDING PHYSICIAN Thoracic Surgery (Cardiothoracic Vascular Surgery); CONSULT PHYSICIAN Internal Medicine; CONSULT PHYSICIAN Thoracic Surgery (Cardiothoracic Vascular Surgery); EMERGENCY PHYSICIAN Emergency Medicine; FAMILY PHYSICIAN Family Medicine; OTHER PHYSICIAN Internal Medicine; OTHER PHYSICIAN Specialist
PROC: 5A09357 Assistance with Respiratory Ventilation, Less than 24 Consecutive Hours, Continuous Positive Airway Pressure (ICD-10-PCS; 2024-11-26)
PROC: B2111ZZ Fluoroscopy of Multiple Coronary Arteries using Low Osmolar Contrast (ICD-10-PCS; 2024-11-27)
PROC: B2151ZZ Fluoroscopy of Left Heart using Low Osmolar Contrast (ICD-10-PCS; 2024-11-27)
PROC: 4A023N8 Measurement of Cardiac Sampling and Pressure, Bilateral, Percutaneous Approach (ICD-10-PCS; 2024-11-27)
PROC: 06BP4ZZ Excision of Right Saphenous Vein, Percutaneous Endoscopic Approach (ICD-10-PCS; 2024-12-04)
PROC: B24BZZ4 Ultrasonography of Heart with Aorta, Transesophageal (ICD-10-PCS; 2024-12-04)
PROC: 02L70CK Occlusion of Left Atrial Appendage with Extraluminal Device, Open Approach (ICD-10-PCS; 2024-12-04)
PROC: 02100ZC Bypass Coronary Artery, One Artery from Thoracic Artery, Open Approach (ICD-10-PCS; 2024-12-04)
PROC: 06BQ0ZZ Excision of Left Saphenous Vein, Open Approach (ICD-10-PCS; 2024-12-04)
PROC: 021209W Bypass Coronary Artery, Three Arteries from Aorta with Autologous Venous Tissue, Open Approach (ICD-10-PCS; 2024-12-04)
PROC: 5A1221Z Performance of Cardiac Output, Continuous (ICD-10-PCS; 2024-12-04)
DX: I21.4 Non-ST elevation (NSTEMI) myocardial infarction (principal); I50.21 Acute systolic (congestive) heart failure; J96.01 Acute respiratory failure with hypoxia; D62 Acute posthemorrhagic anemia; I16.1 Hypertensive emergency; Z68.41 Body mass index [BMI] 40.0-44.9, adult; I13.0 Hypertensive heart and chronic kidney disease with heart failure and stage 1 through stage 4 chronic kidney disease, or unspecified chronic kidney disease; N17.9 Acute kidney failure, unspecified; J98.11 Atelectasis; E87.1 Hypo-osmolality and hyponatremia; I5A Non-ischemic myocardial injury (non-traumatic); G47.33 Obstructive sleep apnea (adult) (pediatric); E78.00 Pure hypercholesterolemia, unspecified; E66.813 Obesity, class 3; I25.10 Atherosclerotic heart disease of native coronary artery without angina pectoris; I25.5 Ischemic cardiomyopathy; E11.65 Type 2 diabetes mellitus with hyperglycemia; I27.29 Other secondary pulmonary hypertension; N18.32 Chronic kidney disease, stage 3b; E11.22 Type 2 diabetes mellitus with diabetic chronic kidney disease; N99.0 Postprocedural (acute) (chronic) kidney failure; Y83.2 Surgical operation with anastomosis, bypass or graft as the cause of abnormal reaction of the patient, or of later complication, without mention of misadventure at the time of the procedure; E86.1 Hypovolemia; E87.6 Hypokalemia; I48.91 Unspecified atrial fibrillation; R09.02 Hypoxemia; T50.2X5A Adverse effect of carbonic-anhydrase inhibitors, benzothiadiazides and other diuretics, initial encounter; N28.1 Cyst of kidney, acquired; F17.290 Nicotine dependence, other tobacco product, uncomplicated; F32.A Depression, unspecified; F41.9 Anxiety disorder, unspecified; R80.9 Proteinuria, unspecified; F10.21 Alcohol dependence, in remission; Z79.899 Other long term (current) drug therapy; Z82.49 Family history of ischemic heart disease and other diseases of the circulatory system; Z85.46 Personal history of malignant neoplasm of prostate; Z90.79 Acquired absence of other genital organ(s)
CPT/HCPCS: 93308; 71045; 71046; 71250; 76775; 80048; 80053; 80061; 81003; 81015; 82248; 82330; 82565; 82570; 82805; 82947; 82962; 82977; 83036; 83605; 83690; 83735; 83880; 84132; 84156; 84302; 84484; 84520; 85014; 85018; 85025; 85027; 85049; 85610; 85730; 86850; 86900; 86901; 86920; 93005; 93306; 93312; 93320; 93321; 93325; 93460; 93880; 93923; 93931; 94002; 94003; 94640; 94660; 96374; 99152; 99153; 99285; C1713; C1894; Q9950; Q9967